=== PATIENT | female | born 1940 | race Caucasian/White ===

== ENCOUNTER 2020-04-26 11:30 | Emergency (ER) | payer MEDICARE, OTHER, SELFPAY ==
--- NOTE | ~2020-04-26 | XR_ITS ---
XR chest 2V DATE: 04/26/2020 12:34 INDICATION: Shortness of breath. Weakness. History of heart surgery. TECHNIQUE: PA and lateral views COMPARISON: 09/19/2017 PA and lateral chest FINDINGS: Status post sternotomy and coronary bypass graft surgery. Heart size is within normal range . Is aortic calcification. No hilar or mediastinal enlargement. There is a new approximately 10 mm opacity overlying the right lower lung; CT thorax is recommended f or further evaluation. The lungs are moderately hyperinflated. There is evidence of old pulmonary gra nulomatous disease. No pulmonary infiltrate or consolidation, pleural effusion or pulmonary vascular congestion or pneumothorax is detected. Diffuse osteopenia. IMPRESSION: New approximately 1 cm opacity overlying right lower lung; CT thorax is recommended Bilateral hyperinflation suggesting COPD Reviewed, dictated and finalized at location B. IMPRESSION: New approximately 1 cm opacity overlying right lower lung; CT thora x is recommended Bilateral hyperinflation suggesting COPD
[2020-04-26 11:39] VITALS: BP 203/83; PULSE 79; RESP 27; TEMP 36.8; O2SAT 100
[2020-04-26 11:46] VITALS: BP 125/98; PULSE 71; PULSE 73; RESP 16; TEMP 36.8; O2SAT 100
--- NOTE | 2020-04-26 11:47 | ECG_ITS ---
Measurements Intervals [place] Rate: 80 P: 95 [place]: 141 QRS: 50 QRSD: 100 T: 76 QT: 407 QTc: 470 Interpretive Statements SINUS RHYTHM BORDERLINE ST-T WAVE ABNORMALITY- INF/HIGH LAT LEADS BASELINE ARTIFACT- I, II, III, AVR, AVL, AVF, V2-V6 BORDERLINE ECG Electronically Signed On 04-26-2020 17:15:12 CDT by Raymond Cloud D.O.
[2020-04-26 11:59] LABS: Basophils Absolute Auto 0.2 K/mm3 (0.0-0.1); Basophils Percent Auto 1.3 % (0.2-1.2); Eosinophils Absolute Auto 0.3 K/mm3 (0-0.3); Eosinophils Percent Auto 2.7 % (0-4.4); Hematocrit 37.9 % (37.0-47.0); Hemoglobin 12.5 g/dL (12.0-15.0); Immature Granulocyte Absolute 0.05 K/mm3 (0.00-0.031); Immature Granulocyte Percent A 0.4 % (0-0.5); Lymphocytes Absolute Auto 2.09 K/mm3 (0.9-3.2); Lymphocytes Percent Auto 18.6 % (18.3-44.2); Mean Corpuscular Hemoglobin 30.4 pg (26-34); Mean Corpuscular Volume 92.2 fl (80-100); Mean Platelet Volume 9.9 fl (7.4-10.4); Monocytes Absolute Auto 0.7 K/mm3 (0.1-0.6); Monocytes Percent Auto 6.6 % (2.6-8.5); Neutrophils Absolute Auto 7.9 K/mm3 (1.3-6.7); Neutrophils Percent Auto 70.4 % (45.5-73.1); Platelet Count Result 227 k/mm3 (150-375); Red Blood Count 4.11 M/mm3 (4.2-5.4); Red Cell Distribution Width 14.1 % (11.5-14.5); White Blood Count 11.2 K/mm3 (4.5-10.0)
[2020-04-26 12:27] LABS: Anion Gap 13.8 mmol/L (7-16); Blood Urea Nitrogen 20 mg/dL (7-17); Calcium 8.9 mg/dL (8.4-10.2); Carbon Dioxide 27 mmol/L (22-30); Chloride 101 mmol/L (98-107); Estimated CRCL calculation 31 ml/min; Estimated Glomerular Filt Rate 60; Glucose 124 mg/dL (65-105); Potassium 3.8 mmol/L (3.4-5.0); Sodium 138 mmol/L (137-145)
[2020-04-26 12:28] VITALS: BP 166/64; PULSE 60; RESP 23; O2SAT 100
[2020-04-26 12:57] VITALS: BP 157/61; PULSE 66; RESP 19; O2SAT 100
--- NOTE | 2020-04-26 12:58 | PC.NURSE ---
tech assisted pt to restroom.
[2020-04-26 14:30] LABS: Add Urine Microscopic? NO; Appearance Urine Clear (Clear); Bacteria Urine 3+ /hpf; Bilirubin Urine Negative (Negative); Blood Urine Negative (Negative); Color Urine Colorless (Yellow); Glucose Urine UA Negative (Negative); Ketones Urine Negative (Negative); Leukocyte Esterase Ur Negative LEU/UL (Negative); Nitrate Urine Negative (Negative); Protein Urine Negative (Negative); Specific Grav Ur 1.005 (1.001-1.035); Transitional Epi Cells Urine Rare /hpf (None Seen); Urobilinogen Urine Negative mg/dL (<2.0); WBC Urine 0-3 /hpf
[2020-04-26 14:40] LABS: D Dimer 1.98 ug/mL (<0.48)
[2020-04-26 14:43] LABS: Troponin I < 0.012 ng/mL (0.000-0.034)
--- NOTE | 2020-04-26 15:34 | ED.SOB ---
HPI - SOB/Dyspnea General Chief Complaint: Shortness of Breath/Dyspnea Stated Complaint: WEAK, SOB Time Seen by Provider: 04/26/20 12:08 Source: patient and family () Mode of arrival: ambulatory Limitations: no limitations History of Present Illness HPI Narrative: Patient presents for evaluation after having an episode while she was sitting watching TV when she became sweaty felt short of breath and like she was going to pass out. Patient states that she did not become dizzy or have a headache. Patient states she did not have any visual changes, nausea or vomiting. Patient denies ever having chest pain during this event. Patient has a history double bypass as well as 2 heart attacks. Related Data Home Medications Medication Instructions Recorded Confirmed aspirin 81 mg tablet,delayed 81 mg PO DAILY 08/15/19 release metoprolol succinate 25 mg 25 mg PO DAILY 08/15/19 tablet,extended release 24 hr omeprazole 20 mg capsule,delayed 20 mg PO DAILY 08/15/19 release simvastatin 10 mg tablet 10 mg PO DAILY 08/15/19 Allergies Allergy/AdvReac Type Severity Reaction Status Date / Time iodine Allergy Unknown Vomiting Verified 04/26/20 11:45 shellfish derived Allergy Unknown Nausea and Verified 04/26/20 11:45 Vomiting shrimp Allergy Unknown Nausea and Verified 04/26/20 11:45 Vomiting Shrimp Allergy Mild NAUSEA AND Uncoded 04/26/20 11:45 VOMITING Review of Systems Review of Systems: Narrative: CONSTITUTIONAL: Reports resolved sweat episode Denies fever, chills, or present sweats. EYES: Denies visual changes, redness, or discharge. ENT: Denies rhinorrhea, congestion, sore throat, or otalgia. CARDIOVASCULAR: Denies chest pain, palpitations, or edema. RESPIRATORY:Reports resolved episode of SOB Denies cough or dyspnea. GASTROINTESTINAL: Denies abdominal pain, nausea, vomiting, or diarrhea. GENITOURINARY: Denies dysuria or hematuria. SKIN: Denies rash or itching. MUSCULOSKELETAL: Denies back pain, joint pain, or myalgia. NEUROLOGIC: Denies headache, numbness, dizziness, or weakness. PSYCHIATRIC: Denies anxiety or depression. [facility] Family History Family History (Updated 03/21/19 @ 10:46 by DOCTOR UNKNOWN) Sibling Family history of lung cancer Patient's brother is Family history of malignant neoplasm Father Family history of coronary artery disease Patient's father is , Onset Age: 70 Family history of heart disease in male family member before age 55 Mother Family history of coronary artery disease Patient's mother is , Onset Age: 70 Social History Social History Smoking status: Never smoker Second hand tobacco smoke exposure: No Smoking end date: 09/24/17 Alcohol intake: never Gender identity (if verbalized by the patient): Female Sexual Orientation (if Verbalized by the Patient): Straight or Heterosexual Exam Narrative: Exam Narrative: GENERAL: Well-appearing, well-nourished, and in no acute distress. HEAD: Normocephalic, atraumatic. EYES: PERRLA and EOMI. ENT: Nares clear, no rhinorrhea or epistaxis. Mucous membranes moist. Oropharynx without tonsillar hypertrophy exudate or other lesions. Bilateral TMs pearly jung nonbulging NECK: Supple. No adenopathy or masses. No carotid bruits or JVD CHEST: Clear to auscultation. No respiratory distress. No wheezes rales or rhonchi. No tachypnea. HEART: Regular rate and rhythm. Healed vertical surgical scar. No tenderness with palpation. ABDOMEN: Soft, nontender, nondistended, normal active bowel sounds. EXTREMITIES: Normal range of motion. No edema. SKIN: Warm, dry, no rash. NEURO: No focal deficits. Alert and oriented x3. PSYCH: Normal mood and affect. Course Vital Signs Vital signs: Vital Signs Temperature 98.3 F 04/26/20 11:39 Pulse Rate 79 04/26/20 11:39 Respiratory Rate 27 H 04/26/20 11:39 Blood Pressure 203/83 H 04/26/20 11:39 Pulse Oximetry 100
--- NOTE | 2020-04-26 15:35 | PC.NURSE ---
ERP at bedside to update pt. Pt is currently refusing admission and any further scans. requesting rescue inhaler.
[2020-04-26 15:36] VITALS: BP 162/69; PULSE 59; RESP 25; O2SAT 99
[2020-04-26 16:27] VITALS: BP 197/80; PULSE 72; RESP 19; TEMP 36.7; O2SAT 97
[2020-04-27 15:08] LABS: SARS-CoV-2 RNA PCR Negative
== END 2020-04-26 16:29 | disposition home or self-care (01) ==
PROVIDERS: Emergency Medicine; Physician Assistant; Emergency Provider Emergency Medicine
DX: J44.1 Chronic obstructive pulmonary disease with (acute) exacerbation (principal); Z20.828 Contact with and (suspected) exposure to other viral communicable diseases
CPT/HCPCS: 36415; 71046; 80048; 81003; 84484; 85025; 85380; 87635; 93005; 99284; C9803; U0003

== ENCOUNTER 2021-03-02 10:32 | Outpatient (CLI) | payer MEDICARE, SELFPAY ==
[2021-03-02 11:04] LABS: Alanine Aminotransferase 11 U/L (4-35); Albumin Level 4.2 g/dL (3.5-5.1); Alkaline Phosphatase 75 U/L (38-126); Anion Gap 9 mmol/L (8-16); Aspartate Amino Transferase 21 U/L (14-36); Bilirubin,Total 0.7 mg/dL (0.2-1.3); Blood Urea Nitrogen 17 mg/dL (7-17); Calcium 9.6 mg/dL (8.4-10.2); Carbon Dioxide 30 mmol/L (22-30); Chloride 104 mmol/L (98-107); Cholesterol 164 mg/dL (0-200); Estimated Glomerular Filt Rate 53; Glucose 98 mg/dL (65-105); HDL Direct 67 mg/dL; Potassium 4.6 mmol/L (3.4-5.0); Sodium 143 mmol/L (137-145); Triglycerides 86 mg/dL (<150)
[2021-03-02 11:15] LABS: LDL Cholesterol Direct 59 mg/dL
[2021-03-02 12:09] LABS: Folic Acid 13.6 ng/mL (2.76->20)
== END 2021-03-02 10:33 | disposition home or self-care (01) ==
PROVIDERS: PCP Physician Assistant; Visit Provider Physician Assistant
DX: E78.5 Hyperlipidemia, unspecified (principal); I10 Essential (primary) hypertension
CPT/HCPCS: 36415; 80053; 80061; 82607; 82746; 84443

== ENCOUNTER 2021-03-11 10:08 | Outpatient (CLI) | payer MEDICARE, SELFPAY ==
--- NOTE | 2021-03-14 12:30 | WPDPFTINT ---
PFT Procedure Performed PFT Procedure Performed Plethysmography (Lung Vol) Diffusing Cap (DLCO) Flow Vol Loop Spirometry w/o Bronchodil PFT Interpretation DOS: 03/11/2021 REQUESTING: Dr Coreas REASON FOR TESTING: shortness of breath PULMONARY FUNCTION TESTS Results are reproducible and reliable. Spirometry: FEV1 is 48% severely decreased. This is 0.87 L. FVC is mildly reduced 71%. FEV1/ FVC ratio is decreased 51% consistent with airflow obstruction. No bronchodilator was given. Lung volumes: Total lung capacity is 112% upper limits of normal. Slow vital capacity is 75% much higher than the forced vital capacity 48%. This is consistent with dynamic air trapping. Residual volume is increased 156% this is a moderate increased. RV/TLC is increased 67% Consistent with air trapping. Diffusion: DLCO Severely decreased 33%. Flow volume loop: Mild scooping of the expiratory limb consistent with airflow obstruction. IMPRESSION: Severe obstructive ventilatory impairment with moderate air trapping, severe diffusion impairment and increased airways resistance. No bronchodilator was given. This pulmonary function study suggests emphysema. Norah Abarca MD
== END 2021-03-11 10:09 | disposition home or self-care (01) ==
PROVIDERS: PCP Physician Assistant; Visit Provider Internal Medicine Cardiovascular Disease
DX: R06.00 Dyspnea, unspecified (principal); R94.2 Abnormal results of pulmonary function studies; Z72.0 Tobacco use
CPT/HCPCS: 94375; 94726; 94729

== ENCOUNTER 2021-07-27 07:39 | Outpatient (CLI) | payer MEDICARE, SELFPAY ==
--- NOTE | 2021-07-27 14:44 | WPDSIXMINUTE ---
Six Minute Walk Procedure Procedure Performed Pulmonary Stress Test (6 min walk) Six Minute Walk This 6 minutes walk test was carried out with the patient breathing ambient air. The pre-walk oxyhemoglobin saturation was 98% and the perceived dyspnea 2 on the Ursula scale. The patient was able to walk 335 m with no stops during testing. During the walk, the oxyhemoglobin saturation remained over 97%. The perceived post-test dyspnea was 3 on the Ursula scale. Impression: No evidence of oxyhemoglobin saturation desaturation on this testing.
== END 2021-07-27 07:40 | disposition home or self-care (01) ==
LOC: ANHPFT 07:40
PROVIDERS: Visit Provider Internal Medicine Pulmonary Disease
DX: J44.9 Chronic obstructive pulmonary disease, unspecified (principal)
CPT/HCPCS: 94618

== ENCOUNTER 2021-07-27 07:42 | Outpatient (CLI) | payer MEDICARE, SELFPAY ==
--- NOTE | ~2021-07-27 | CT_ITS ---
EXAMINATION: CT lung screening EXAM DATE: 07/27/2021 08:25 INDICATION: Z87.891 - Personal history of nicotine dependence. Shortness of breath. TECHNIQUE: Spiral low dose CT of the chest without contrast. Axial, coronal and sagittal images were reviewed. The dose-length product (DLP) for this examination was 58.87 mGy-cm. The exposure was ta ilored according to patient size (auto mA exposure control), and iterative reconstruction (ASIR) was used as additional dose reduction technique. There is no prior study for comparison. FINDINGS: Spiculated right lower lobe nodule measuring 1.5 cm, appearance is highly suggestive of [place] lung cancer. There is moderate emphysema. There are scattered calcified lung granulomata. Trach eobronchial tree is patent. There is no mediastinal, hilar or axillary lymphadenopathy. There are no pleural or pericardial effusions. There is no pneumothorax. Heart normal in size. There are sternotomy wires, and cardiac/coronary surgical changes. Correlate with prior history. Upper abdomen is unremarkable. There is thoracic spondylosis without osteoblastic or osteolytic lesions identifi ed. IMPRESSION: Lung-RADS category 4X; CT-guided biopsy of probable right lower lobe primary bronchogenic lung cancer recommended. I discussed suspected lung cancer with Irene in the office of the ordering clinician Artie soriano MD at 07/27/2021 11:29 CDT, stated she would notify the clinicians present today. Reviewed, dictated and finalized at location A. IMPRESSION: Lung-RADS category 4X; CT-guided biopsy of probable right lower lob e primary bronchogenic lung cancer recommended. I discussed suspected lung cancer with Irene in the office of the ordering clin teddy Coelho MD at 07/27/2021 11:29 CDT, stated she would notify the clinicians present today.
== END 2021-07-27 07:43 | disposition home or self-care (01) ==
LOC: ANHIMG 07:43
PROVIDERS: Visit Provider Internal Medicine Pulmonary Disease
DX: Z12.2 Encounter for screening for malignant neoplasm of respiratory organs (principal); Z87.891 Personal history of nicotine dependence
CPT/HCPCS: 71271; 94618

== ENCOUNTER 2021-08-10 05:43 | Outpatient (CLI) | payer MEDICARE, SELFPAY ==
[2021-08-03 10:43] VITALS: BMI 17.7
--- NOTE | 2021-08-03 10:54 | PC.NURSE ---
Addendum entered by Ghislaine Mckinney RN 08/03/21 10:57: PT TO ARRIVE @ [address] [place] [address] 08/10/21 - PT CONTACTED AND UNDERSTANDING VOICED. Original Note: Report to [facility], at time _0900_ on date 08/10/21__. OR Time: __1100__. - You and your visitor will be asked a series of questions to screen for COVID 19 for your protection. - A mask is required within the hospital. - Only one visitor is allowed at this time. Patient visitors will be guided where to wait when not with patient. Preoperative COVID Testing Requirements: No COVID Test needed if: (proof is required; if not received patient will have Rapid Test prior to entry) - Patient has received COVID Vaccine at least 14 days prior to procedure date or - Patient has positive COVID test result within last 90 days of surgery date. COVID Test needed if above criteria is not met If not COVID vaccinated a COVID test must be conducted within 72 hours of surgery and patient is asked to isolate self from time of testing until procedure. You will go to the [facility] for your COVID testing. The [facility] site is located at the corner of [address] [facility]. You will only be called if COVID results are positive and your surgeon may reschedule your elective surgery date. - No food from 0500 - Infants may have breast milk until 4 hours before surgery, formula 6 hours prior to surgery. - Children will be allowed to drink immediately following surgery. If applicable, please bring a bottle or sippy cup to assist with drinking. Juice, water, soda, and popsicles are readily available. For infants on formula, please bring formula the day of surgery. Pacifiers are allowed. Take the following medications with a SIP of water the morning of surgery: _INHALER, METOPROLOL Medications to discontinue per physician __ASA - PT STATES STOPPING 08/02/21 Date to take last dose Please no make-up, nail arabic, hairspray, perfume, deodorant, or body powder the day of surgery. No jewelry (including any body piercings) or valuables the day of surgery, leave them at home. Please take a shower or bath the night before, or the morning of, surgery with an antibacterial soap. Wear comfortable, loose fitting clothing. Children are encouraged to wear pajamas. - Jewelry must be removed prior to entering the operating room. Rings and piercings that are not removed may be cut off. - The hospital will not accept responsibility for valuables. - Please leave all valuables, including medications, at home the day of surgery. If you are going home after surgery, a licensed bulk delivery driver must drive you home. - NO public transportation without another adult. - We recommend that an adult stay with you for 24 hours following discharge. - We also recommend that you do not drive, make important decision, drink alcoholic beverages, or take any drugs that were not prescribed by your health care provider for at least 24 hours after your discharge time. For Pediatric surgeries, we recommend two adults accompany the child home (only one inside the building at this time). Follow any additional instructions given to you from your surgeon. Telephone instructions given to ____PT____and asked if any additional questions and then verbalized understanding. Patient advised to call surgeon office or pre surgery nurse liaison [phone] if any additional questions.
--- NOTE | 2021-08-09 15:00 | SUR.PREOP ---
patient called and reminded of arrival time of 10am at [facility] entrance, understanding stated.
[2021-08-10] VITALS (17 sets, daily range): BP systolic 149–189; BP diastolic 56–101; PULSE 60–81; RESP 14–18; TEMP 36.7; O2SAT 94–100
--- NOTE | ~2021-08-10 | XR_ITS ---
EXAMINATION: XR chest 1V portable DATE: 08/10/2021 13:38 INDICATION: Right lung nodule status post percutaneous biopsy. TECHNIQUE: A single frontal view of the chest was obtained. COMPARISON: Chest single view at 12:30 PM FINDINGS: Calcified pulmonary nodules and calcified hilar and mediastinal lymph nodes are consistent with old granulomatous disease. There are airspace opacities in right lower lung zone. There is a sma ll right pneumothorax. No pleural effusion. The heart size is normal. Median sternotomy wires and med iastinal surgical clips are seen, likely from prior coronary artery bypass grafting. There is a closu re device of left atrial appendage. IMPRESSION: 1. Stable small right pneumothorax. 2. Stable airspace opacities in right lower lung zone, consistent with postbiopsy hemorrhage. Reviewed, dictated and finalized at location A. LEAD ARCHITECT IMPRESSION: 1. Stable small right pneumothorax. 2. Stable airspace opacities in right lower lung zone, consistent with postbiop sy hemorrhage.
--- NOTE | ~2021-08-10 | XR_ITS ---
EXAMINATION: XR chest 1V DATE: 08/10/2021 12:35 INDICATION: Right lung nodule status post percutaneous biopsy. TECHNIQUE: A single frontal view of the chest was obtained. COMPARISON: Chest 2 views 04/26/2020 FINDINGS: Calcified pulmonary nodules and calcified hilar and mediastinal lymph nodes are consistent with old granulomatous disease. There are airspace opacities in right lower lung zone. There is a sma ll right pneumothorax. No pleural effusion. The heart size is normal. Median sternotomy wires and med iastinal surgical clips are seen, likely from prior coronary artery bypass grafting. There is a closu re device at left atrial appendage. IMPRESSION: 1. Airspace opacities in right lower lung zone, consistent with postbiopsy hemorrhage. 2. New small right pneumothorax. The patient denies shortness of breath or chest pain. Reviewed, dictated and finalized at location A. H SPECIALIST IMPRESSION: 1. Airspace opacities in right lower lung zone, consistent with postbiopsy hemo rrhage. 2. New small right pneumothorax. The patient denies shortness of breath or ches t pain.
--- NOTE | ~2021-08-10 | XR_ITS ---
EXAMINATION: XR chest 1V portable DATE: 08/10/2021 15:35 INDICATION: Right lung nodule status post percutaneous biopsy. TECHNIQUE: A single frontal view of the chest was obtained on 2 radiographs. COMPARISON: Chest single view at 1:30 PM FINDINGS: There is a small right pneumothorax. There are airspace opacities in right lower lung zone. Calcified pulmonary nodules and calcified hilar and mediastinal lymph nodes are consistent with old granulomatous disease. No pleural effusion. The heart size is normal. Median sternotomy wires and med iastinal surgical clips are seen, likely from prior coronary artery bypass grafting. There is a closu re device of left atrial appendage. IMPRESSION: 1. Stable small right pneumothorax. 2. Stable airspace opacities in right lower lung zone, consistent with postbiopsy hemorrhage. Reviewed, dictated and finalized at location A. DENTIAL INSTRUCTOR IMPRESSION: 1. Stable small right pneumothorax. 2. Stable airspace opacities in right lower lung zone, consistent with postbiop sy hemorrhage.
--- NOTE | ~2021-08-10 | XR_ITS ---
EXAMINATION: XR chest 1V portable DATE: 08/10/2021 16:28 INDICATION: Right chest pain. TECHNIQUE: A single frontal view of the chest was obtained. COMPARISON: Chest single view at 3:29 PM FINDINGS: Calcified pulmonary nodules and calcified hilar and mediastinal lymph nodes are consistent with old granulomatous disease. There is a small right pneumothorax. There are airspace opacities in right lower lung zone. No pleural effusion. The heart size is normal. Median sternotomy wires and med iastinal surgical clips are seen, likely from prior coronary artery bypass grafting. There is a closu re device of left atrial appendage. IMPRESSION: 1. Stable small right pneumothorax. 2. Stable airspace opacities in right lower lung zone, consistent with postbiopsy hemorrhage. Reviewed, dictated and finalized at location A. PHYSICIST IMPRESSION: 1. Stable small right pneumothorax. 2. Stable airspace opacities in right lower lung zone, consistent with postbiop sy hemorrhage.
--- NOTE | ~2021-08-10 | CT_ITS ---
EXAMINATION: CT biopsy lung w/imaging DATE: 08/10/2021 12:46 INDICATION: Right lung lower lobe nodule. TECHNIQUE: The procedure including the risks, benefits, and alternatives and possibility of chest tub e placement were discussed with the patient. Risks discussed included infection, approximately 1/20 r isk of symptomatic hemorrhage beyond mild hemoptysis, approximately 1/3 risk of pneumothorax, approxi mately 1/10 risk of pneumothorax severe enough to warrant chest tube placement, and rarely . The patient understood the risks and agreed to proceed. The patient was placed left lateral decubitus. The skin overlying the right lung was prepped and draped in sterile fashion. Anesthetic was administ ered with 1% lidocaine subcutaneously. A 19 gauge outer needle was advanced under CT guidance to the lesion of interest. A 20 gauge core biopsy needle was then used to obtain 2 core biopsy specimens. T he needle was removed and the entry site was cleaned and dressed. Automated exposure control and iter ative reconstruction technique were employed. The dose-length product was 306.00 mGy-cm. FINDINGS: CT images demonstrate the outer needle tip adjacent to a 15 mm nodule in right lung lower l obe. Postbiopsy images demonstrate intraparenchymal hemorrhage in right lower lobe and a small right pneumothorax. IMPRESSION: 1. CT-guided core needle biopsy of a 15 mm nodule in right lung lower lobe. 2. Small volume of postbiopsy hemorrhage in right lower lobe and small postbiopsy pneumothorax. Reviewed, dictated and finalized at location A. TRICAL AGENT IMPRESSION: 1. CT-guided core needle biopsy of a 15 mm nodule in right lung lower lobe. 2. Small volume of postbiopsy hemorrhage in right lower lobe and small postbiop sy pneumothorax.
[2021-08-10 10:23] LABS: Mean Platelet Volume 9.9 fl (7.4-10.4); Platelet Count Result 225 k/mm3 (150-375)
[2021-08-10 11:33] LABS: Prothrombin Time 13.2 Seconds (11.1-14.7)
--- NOTE | 2021-08-10 13:08 | SUR.PHASEII ---
pt is on her right lateral side on her surgical puncture per order. pt is Bedrest for 4 hrs. pt was informed.
--- NOTE | 2021-08-10 13:24 | SUR.PHASEII ---
MD arenas came by to see pt. pt VSS. breathing even and unlabored.
--- NOTE | 2021-08-10 13:27 | SUR.PHASEII ---
pt is at bedside. upon pt arrival to outpt
--- NOTE | 2021-08-10 13:30 | SUR.PHASEII ---
per Dr Santiago use bed scott for pt to void on.
--- NOTE | 2021-08-10 13:44 | SUR.PHASEII ---
XR tech came wt bedside for portable CXR
--- NOTE | 2021-08-10 13:46 | SUR.PHASEII ---
this nurse called and informed md Arenas that pt had her CXR. dr arenas said pt pneumothorax was unchanged we can start tapering pt O2 down.
--- NOTE | 2021-08-10 14:51 | SUR.PHASEII ---
pt is c/o a head ache. pt said she gets them when she doesn't eat. per md Santiago pt can have some water but no food at this time.
--- NOTE | 2021-08-10 15:03 | SUR.PHASEII ---
there is a delay for giving pt tylenol due to pt name not coming up in the pyxus. this nurse is asking pt manager placement ottoniel and other nurses for assistance.
[2021-08-10] MEDS: ACETAMINOPHEN 500 MG TABLET PO (15:07)
--- NOTE | 2021-08-10 15:34 | SUR.PHASEII ---
XR tech came to bedside to do pt 3 hr CXR. pt c/o pain at surgical site with movement pain 01/01. vss. biopsy site has no hematoma and is soft.
--- NOTE | 2021-08-10 15:39 | SUR.PHASEII ---
Dr arenas was informed that pt had her XR and he said that her XR was unchanged and her VS are stable, breathing is even and unlabored and that she is ok to go home.
--- NOTE | 2021-08-10 16:20 | SUR.PHASEII ---
rn cat helped pt ambulate to and back from the bathroom and pt said she started having increased pain at biopsy site. this nurse called dr arenas and he said he wanted to get another CXR.
--- NOTE | 2021-08-10 16:25 | SUR.PHASEII ---
XR tech is at bedside
--- NOTE | 2021-08-10 17:27 | SUR.PHASEII ---
at 1630 md arenas came to see pt and informed pt that her repeat cxr was unchanged and to come to the ER if she has worse SOB or CP
== END 2021-08-10 16:50 | disposition home or self-care (01) ==
PROVIDERS: Radiology Diagnostic Radiology; Visit Provider Internal Medicine Pulmonary Disease
PROC: BB24ZZZ Computerized Tomography (CT Scan) of Bilateral Lungs (ICD-10-PCS; CPT 32408; principal; 2021-08-10 11:00)
DX: R91.1 Solitary pulmonary nodule (principal); J95.811 Postprocedural pneumothorax
CPT/HCPCS: 32408; 36415; 71045; 81210; 81235; 81275; 81276; 85049; 85610; 88271; 88274; 88305; 88342; 88360; 88381; A9270

== ENCOUNTER 2021-08-25 13:37 | Outpatient (CLI) | payer MEDICARE, SELFPAY ==
--- NOTE | ~2021-08-25 | PE_ITS ---
EXAMINATION: PET skull to mid thigh DATE: 08/25/2021 15:14 INDICATION: Non-small cell lung cancer. TECHNIQUE: Blood glucose level was 84 mg/dL. 10.348 mCi of 18-fluorodeoxyglucose (18-FDG) was adminis tered i.v. Low dose computed tomography (CT) images were acquired from the base of the brain to the p roximal thighs for attenuation correction and anatomic localization. Automated exposure control was e mployed. Dose-length product (DLP) was 220 mGy-cm. Positron emission tomography (PET) images were acq uired in the same distribution. COMPARISON: Chest CT 07/27/2021 FINDINGS: Head/neck: There are no pathologically enlarged lymph nodes. There is increased activity in the oroph arynx without abnormal CT correlate, likely physiologic. Chest: There is mild scarring at the lung apices. Calcified bilateral lung nodules and calcified finesse r and mediastinal lymph nodes are consistent with old granulomatous disease. There is moderate emphys sybil. There is a 16 mm nodule in right lung lower lobe with maximum SUV of 7.1. No pleural effusion. C ardiomegaly is noted. There are coronary artery calcifications. There are changes of coronary artery bypass grafting. No pericardial effusion. Abdomen/pelvis/proximal thighs: Calcifications in the liver consistent with old granulomatous disease . The gallbladder, spleen, pancreas, and adrenal glands are normal. Small calcifications at the finesse of the kidneys may be kidney stones or vascular calcifications. There are bilateral inguinal hernias containing fat. There are no pathologically enlarged lymph nodes. There is no free intraperitoneal fl uid. There is a right hip arthroplasty. IMPRESSION: 1. 16 mm nodule in right lung lower lobe with increased activity, consistent with non-small cell carc inoma. No evidence of metastatic disease. Reviewed, dictated and finalized at location A. SETTER HAND IMPRESSION: 1. 16 mm nodule in right lung lower lobe with increased activity, consistent wi th non-small cell carcinoma. No evidence of metastatic disease.
[2021-08-25 13:51] LABS: Glucose Point of Care 84 mg/dl (65-105)
== END 2021-08-25 13:38 | disposition home or self-care (01) ==
LOC: ANHIMG 13:38
PROVIDERS: Visit Provider Internal Medicine Pulmonary Disease
DX: R91.1 Solitary pulmonary nodule (principal)
CPT/HCPCS: 78815; A9552

== ENCOUNTER 2021-08-31 11:54 | Outpatient (CLI) | payer MEDICARE, SELFPAY ==
--- NOTE | ~2021-08-31 | XR_ITS ---
EXAMINATION: XR hip RT min 3V w AP pelvis INDICATION: Right hip pain TECHNIQUE: AP view the pelvis and three views of the right hip are obtained. COMPARISON: None available FINDINGS: There are changes of right hip hemiarthroplasty. No fracture is identified. Calcified ather osclerosis is noted. There are phleboliths in the pelvis. IMPRESSION: 1. No acute osseous abnormality. Reviewed, dictated and finalized at location A. NG RUNNING MACHINE TENDER
== END 2021-08-31 11:55 | disposition home or self-care (01) ==
LOC: ANHIMG 12:03
PROVIDERS: PCP Physician Assistant; Visit Provider Physician Assistant
DX: M25.559 Pain in unspecified hip (principal)
CPT/HCPCS: 73502

== ENCOUNTER 2021-09-26 10:22 | Emergency (ER) | payer MEDICARE, SELFPAY ==
[2021-09-26 11:11] VITALS: BP 157/111; PULSE 78; RESP 20; TEMP 36.8; O2SAT 100
== END 2021-09-27 03:55 | disposition left against medical advice (07) ==
PROVIDERS: PCP Physician Assistant
DX: R11.0 Nausea (principal)
CPT/HCPCS: 99199

== ENCOUNTER 2021-12-21 13:51 | Outpatient (CLI) | payer MEDICARE, SELFPAY ==
--- NOTE | ~2021-12-21 | CT_ITS ---
EXAMINATION:CT diagnostic chest wo con DATE: 12/21/2021 14:08 INDICATION: Malignant neoplasm of right lung lower lobe. TECHNIQUE: Computed tomography (CT) of the chest was performed without intravenous contrast. Automate d exposure control and iterative reconstruction technique were employed. The dose-length product (DLP ) was 127.09 mGy-cm. COMPARISON: Chest CT 08/10/2021, 07/27/2021, PET CT 08/25/2021 FINDINGS: There is mild scarring at the lung apex. There is moderate emphysema. Calcified pulmonary n odules and calcified hilar and mediastinal lymph nodes are consistent with old granulomatous disease. There is a 13 mm nodule in right lower lobe. There are small bilateral posterior diaphragmatic herni as containing fat. There is a stable 4 mm nodule in left lower lobe. No pleural effusion. Cardiomegal y is noted. There are coronary artery calcifications. There are changes of coronary artery bypass gra fting. No pericardial effusion. Partially visualized is a 3.0 cm fusiform aneurysm of abdominal aorta . There is mild thoracic spondylosis. IMPRESSION: 1. 13 mm nodule in right lung lower lobe, which measured 15 mm on 08/10/2021, consistent with non-sma ll cell lung cancer. 2. Moderate emphysema. Reviewed, dictated and finalized at location A. IMPRESSION: 1. 13 mm nodule in right lung lower lobe, which measured 15 mm on 08/10/2021, c onsistent with non-small cell lung cancer. 2. Moderate emphysema.
== END 2021-12-21 13:52 | disposition home or self-care (01) ==
LOC: ANHIMG 13:53
PROVIDERS: PCP Physician Assistant; Visit Provider Radiology Radiation Oncology
DX: C34.31 Malignant neoplasm of lower lobe, right bronchus or lung (principal); J43.9 Emphysema, unspecified
CPT/HCPCS: 71250

== ENCOUNTER 2022-03-24 09:51 | Outpatient (CLI) | payer MEDICARE, SELFPAY ==
--- NOTE | ~2022-03-24 | CT_ITS ---
EXAMINATION: CT diagnostic chest wo con DATE: 03/24/2022 10:07 INDICATION: Malignant neoplasm of the right lower lobe TECHNIQUE: Computed tomography (CT) of the chest was performed without intravenous contrast. The dose -length product (DLP) was 128.20 mGy-cm. Automated exposure control and iterative reconstruction tech [employer] were employed. COMPARISON: 12/21/2021 FINDINGS: There is moderate emphysema. There is an 8 mm nodule of the right upper lobe which previous ly measured 5 mm. A 5 mm nodule in the left lower lobe previously measured 4 mm. A 13 mm nodule of th e right lower lobe is stable. There is mild atelectasis. No pleural effusion or pneumothorax. Cardiom egaly is noted. There are changes of coronary artery bypass grafting. No pathologically enlarged thor acic lymph nodes are identified. There is mild thoracic spondylosis. IMPRESSION: 1. Nodules in the lower lobes and right upper lobe as described above, consistent with primary bronch ogenic carcinoma. Reviewed, dictated and finalized at location F. IMPRESSION: 1. Nodules in the lower lobes and right upper lobe as described above, consiste nt with primary bronchogenic carcinoma.
== END 2022-03-24 09:52 | disposition home or self-care (01) ==
LOC: ANHIMG 09:53
PROVIDERS: PCP Family Medicine; Visit Provider Internal Medicine Hematology & Oncology
DX: C34.31 Malignant neoplasm of lower lobe, right bronchus or lung (principal)
CPT/HCPCS: 71250

== ENCOUNTER 2022-03-30 10:49 | Outpatient (CLI) | payer MEDICARE, SELFPAY ==
[2022-03-30 11:16] LABS: Basophils Absolute Auto 0.1 K/mm3 (0.0-0.1); Basophils Percent Auto 1.8 % (0.2-1.2); Eosinophils Absolute Auto 0.3 K/mm3 (0-0.3); Eosinophils Percent Auto 3.9 % (0-4.4); Hematocrit 37.6 % (37.0-47.0); Immature Granulocyte Absolute 0.03 K/mm3 (0.00-0.031); Immature Granulocyte Percent A 0.4 % (0-0.5); Lymphocytes Percent Auto 25.4 % (18.3-44.2); Mean Corpuscular HGB Conc 31.9 g/dl (32-36); Mean Corpuscular Hemoglobin 30.2 pg (26-34); Mean Corpuscular Volume 94.5 fl (80-100); Mean Platelet Volume 9.5 fl (7.4-10.4); Monocytes Absolute Auto 0.6 K/mm3 (0.1-0.6); Monocytes Percent Auto 8.4 % (2.6-8.5); Neutrophils Percent Auto 60.1 % (45.5-73.1); Platelet Count Result 219 k/mm3 (150-375); Red Blood Count 3.98 M/mm3 (4.2-5.4); Red Cell Distribution Width 13.3 % (11.5-14.5); White Blood Count 6.7 K/mm3 (4.5-10.0)
[2022-03-30 11:21] LABS: Blood Urea Nitrogen 23 mg/dL (8-26); Carbon Dioxide 25 mmol/L (22-30); Chloride 104 mmol/L (98-109); Estimated Glomerular Filt Rate 60; Glucose 90 mg/dL (70-105); Ionized Calcium (POC) 1.16 mmol/L (1.11-1.31); Potassium 4.4 mmol/L (3.5-4.9); Sodium 139 mmol/L (138-146)
[2022-03-30 12:14] LABS: Alanine Aminotransferase 10 U/L (6-35); Albumin Level 4.2 g/dL (3.5-5.1); Alkaline Phosphatase 85 U/L (38-126); Anion Gap 8 mmol/L (8-16); Aspartate Amino Transferase 19 U/L (14-36); Bilirubin,Total 0.2 mg/dL (0.2-1.3); Blood Urea Nitrogen 23 mg/dL (7-17); Calcium 8.6 mg/dL (8.4-10.2); Carbon Dioxide 25 mmol/L (22-30); Chloride 105 mmol/L (98-107); Estimated Glomerular Filt Rate 60; Glucose 91 mg/dL (65-110); Potassium 4.5 mmol/L (3.4-5.0); Sodium 138 mmol/L (137-145)
== END 2022-03-30 10:50 | disposition home or self-care (01) ==
LOC: ANHLAB 10:51
PROVIDERS: PCP Family Medicine; Visit Provider Internal Medicine Hematology & Oncology
DX: C34.31 Malignant neoplasm of lower lobe, right bronchus or lung (principal)
CPT/HCPCS: 36415; 80047; 80053; 85025

== ENCOUNTER 2022-04-06 11:44 | Outpatient (CLI) | payer MEDICARE, SELFPAY ==
--- NOTE | ~2022-04-06 | PE_ITS ---
EXAMINATION: PET skull to mid thigh DATE: 04/06/2022 13:44 INDICATION: Malignant neoplasm of the right lower lobe TECHNIQUE: Blood glucose level was 96 mg/dL. 11.352 mCi of 18-fluorodeoxyglucose (18-FDG) was adminis tered i.v. Low dose computed tomography (CT) images were acquired from the base of the brain to the p roximal thighs for attenuation correction and anatomic localization. Positron emission tomography (PE T) images were acquired in the same distribution beginning 55 minutes after injection. Images includi ng fused PET/CT images were reconstructed in axial, coronal, and sagittal planes. Automated exposure control technique was employed. The dose-length product was 220.26mGy-cm. COMPARISON: 08/25/2021 FINDINGS: Head/neck: There is symmetric increased activity in the oral cavity, palatine tonsils, parotid glands, larynge al muscles and ocular muscles without CT correlate, likely physiologic. No pathologically enlarged ce rvical lymphadenopathy or suspicious foci of increased FDG uptake in the visualized head or neck. Chest: Moderate emphysema with mild biapical pleural-parenchymal scarring. Decrease in size and FDG uptake o f a previously 14 x 14 mm right lower lobe nodule with maximal SUV of 7.1 which currently measures 14 x 8 mm with maximal SUV of 2.0. A previously 4-5 mm left lower lobe nodule indiscernible on the PET imaging has increased to 7 mm with maximal SUV of 1.1. Similarly a 4 mm right upper lobe nodule indis cernible on PET now measures 7 mm with maximum SUV of 1.3. Multiple small calcified pulmonary nodules along with calcified mediastinal and hilar lymph nodes consistent with old granulomatous disease. Co nsistent with old granulomatous disease. Cardiomegaly. Median sternotomy and changes of coronary michael ry bypass grafting. No pericardial effusion. No pathologically enlarged or FDG avid thoracic lymphade nopathy. Abdomen/pelvis/proximal thighs: Physiologic renal accumulation and excretion of FDG activity in the kidneys, bladder and along portio ns of ureters. Bilateral nephrolithiasis. Normal degree and heterogenous pattern of increased uptake throughout the liver and spleen without radiologic correlate or dominant FDG avid lesion. The gallbla dder, pancreas and bilateral adrenal glands are normal. Mild uptake scattered throughout the bowels w ithout radiologic correlate, also likely physiologic. No other abnormal foci of increased FDG uptake or pathologically enlarged lymphadenopathy in the abdomen, pelvis or proximal thighs. Fat-containing left inguinal hernia. Portions of the right inferior pelvis are obscured by metallic streak artifact from a right hip hemiarthroplasty. Musculoskeletal: Severe lower cervical and lower lumbar spondylosis with moderate intervening spondylosis. 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 No s uspicious lytic, blastic or FDG avid bone lesions. IMPRESSION: 1. 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 2. Increase in size and now mild discernible FDG uptake associated with 7 mm nodules in the right upp er and left lower lobe suspicious for metastatic disease. Reviewed, dictated and finalized at location B. IMPRESSION: 1. 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 2. Increase in size and now mild discernible FDG uptake associated with 7 mm no dules in the right upper and left lower lobe suspicious for metastatic disease.
[2022-04-06 12:20] LABS: Glucose Point of Care 96 mg/dl (65-105)
== END 2022-04-06 11:45 | disposition home or self-care (01) ==
PROVIDERS: PCP Family Medicine; Visit Provider Internal Medicine Hematology & Oncology
DX: C34.31 Malignant neoplasm of lower lobe, right bronchus or lung (principal)
CPT/HCPCS: 78815; A9552

== ENCOUNTER 2022-07-13 08:39 | Outpatient (CLI) | payer MEDICARE, SELFPAY ==
--- NOTE | ~2022-07-13 | CT_ITS ---
EXAMINATION: CT diagnostic chest wo con DATE: 07/13/2022 09:47 INDICATION: Malignant neoplasm of the right lower lobe TECHNIQUE: Computed tomography (CT) of the chest was performed without intravenous contrast. The dose -length product (DLP) was 141.73 mGy-cm. Automated exposure control and iterative reconstruction tech [employer] were employed. COMPARISON: 03/24/2022, 12/21/2021 FINDINGS: There is moderate emphysema. A 12 mm nodule of the right upper lobe demonstrates continued interval enlargement, measuring 8 mm and 5 mm on the two most recent comparison examinations. A 1.8 c m nodule of the right lower lobe abutting the diaphragm is slightly increased in size. Although diffi cult to discriminate from adjacent vascular structures, the previously described right lower lobe nod ule appears to be stable in size compared to the most recent CT. A 9 mm nodule of the left lower lobe continues to increase in size. No pleural effusion or pneumothorax. Cardiomegaly is noted. There is calcified coronary artery atherosclerosis. Calcified pulmonary nodules and calcified bilateral hilar and mediastinal lymph nodes are consistent with old granulomatous disease. No pathologically enlarged thoracic lymph nodes are identified. There is mild thoracic spondylosis. There are nonobstructing st ones of the right kidney. There is mild thoracic spondylosis. IMPRESSION: 1. Enlarging bilateral pulmonary nodules concerning for metastatic disease. Reviewed, dictated and finalized at location B.
== END 2022-07-13 08:40 | disposition home or self-care (01) ==
PROVIDERS: PCP Family Medicine; Visit Provider Internal Medicine Hematology & Oncology
DX: C34.31 Malignant neoplasm of lower lobe, right bronchus or lung (principal)
CPT/HCPCS: 71250

== ENCOUNTER 2022-08-04 02:18 | Outpatient (CLI) | payer MEDICARE, SELFPAY ==
[2022-07-27 09:29] VITALS: BMI 18.4
--- NOTE | 2022-07-27 09:31 | PC.NURSE ---
Pre Radiology instructions Report to the Outpatient Waiting Room, entrance under the green pavilion located off [facility], at time _0900_ on date _08/04/22_. Procedure Time: _1100_. YOU MAY BE MONITORED AT HOSPITAL FOR UP TO 4 HOURS AFTER YOUR PROCEDURE. One visitor will be allowed to accompany the patient into the hospital. The visitor will be instructed to remain with patient at all times or leave the building due to restrictions. We will allow the visitor to come back to the postoperative area when patient is ready. NO children visitors allowed at this time. You and your visitor will be asked to self-screen and do not enter if you have any COVID symptoms. A mask is required within the hospital. Patients are to have no food or drink 6 hours prior to procedure time (0500 AM) Driving will be restricted after the procedure, you must have a person to drive you home. Labs will be drawn in preop area and once reviewed, you will be taken to radiology area for procedure. When the procedure is completed, you will be taken to outpatient where you will be monitored for several hours. You may have one visitor in this area. Other than holding anti-coagulants, patient may take other medication(s) as scheduled. Prior to your appointment date patients are instructed to hold anti-coagulants after discussing with ordering provider to stop. If unable to discontinue anti-coagulants please notify radiologist. No aspirin or warfarin (Coumadin) for 7 days prior to the procedure. No clopidogrel (Plavix), ticagrelor (Brilinta), prasugrel (Effient) or dabigatran (Pradaxa) for 5 days prior to the procedure. No rivaroxaban (Xarelto), apixaban (Eliquis), dipyridamole (Aggrenox or Persantine) or cilostazol (Pletal) for 2 days prior to the procedure. Medications to discontinue per physician: _ASPIRIN_ Date to take last dose: _07/27/22_ Please leave all valuables, including medications, at home the day of procedure. The hospital will not accept responsibility for valuables. Wear comfortable, loose fitting clothing. Follow any additional instructions given to you from ordering provider. Telephone instructions given to ____PT and asked if any additional questions and then verbalized understanding. Patient advised to call scheduling provider office or registration scheduling [phone] if any additional questions.
[2022-08-04] VITALS (9 sets, daily range): BP systolic 118–163; BP diastolic 61–91; PULSE 68–85; RESP 16–32; TEMP 36.7; O2SAT 94–100; BMI 18.7
--- NOTE | ~2022-08-04 | XR_ITS ---
EXAMINATION: XR chest 1V DATE: 08/04/2022 11:32 INDICATION: Post right upper lobe percutaneous lung biopsy. TECHNIQUE: Sitting AP view of the chest was obtained. COMPARISON: Chest radiograph dated 08/10/2021 FINDINGS: No pneumothorax or pleural effusion/hemothorax. Peripheral wedge-shaped opacity at the lateral right upper lobe corresponding to pulmonary hemorrhage related to biopsy of the right upper lobe nodule whi ch is obscured by the surrounding hemorrhage. Attending the medial side of the right hemidiaphragm bryan coello related to radiation fibrosis for treatment of a previously biopsied malignant right lower lobe nodule. Multiple scattered small calcified pulmonary nodules consistent with old granulomatous diseas e. Borderline heart size accentuated by a prominent left paracardial fat pad. Median sternotomy wires , ostial markers and mediastinal surgical clips consistent with prior coronary artery bypass grafting . Left atrial occlusion clip. IMPRESSION: 1. Region of peripheral iatrogenic pulmonary hemorrhage in the right upper lobe post percutaneous bio psy of a right upper lobe nodule which is obscured by the hemorrhage. No pneumothorax or hemothorax. Reviewed, dictated and finalized at location A. [employer] IMPRESSION: 1. Region of peripheral iatrogenic pulmonary hemorrhage in the right upper lobe post percutaneous biopsy of a right upper lobe nodule which is obscured by the hemorrhage. No pneumothorax or hemothorax.
--- NOTE | ~2022-08-04 | CT_ITS ---
EXAMINATION: CT biopsy lung w/imaging DATE: 08/04/2022 11:29 INDICATION: Right upper lobe nodule TECHNIQUE: The procedure including the risks and benefits was discussed with the patient. Risks discu ssed included infection, approximately 1/20 risk of symptomatic hemorrhage beyond mild hemoptysis, ap proximately 1/3 risk of pneumothorax, and approximately 1/10 risk of pneumothorax severe enough to wa rrant chest tube placement. The patient understood the risks and agreed to proceed. The patient was p laced supine. The skin overlying the infraclavicular anterior right upper thorax was prepped and imelda ped in sterile fashion. Anesthetic was administered with 1% lidocaine subcutaneously. A [address] needle was advanced under CT guidance to the lesion of interest. A 20 gauge core biopsy needle wa s then used to obtain 2 core biopsy specimens. The patient began to cough following the second biopsy there was brisk bleeding through the guide needle. The procedure was terminated prior to the planned third core biopsy, the needle was removed and the patient placed in the right lateral decubitus posi tion. The entry site was cleaned and dressed. The patient coughed up a small amount of blood for a sh ort period of time. Supplemental oxygen was briefly turned off to establish a new baseline oxygen sat uration level which was 88% on room air which increased to 90% on 2 L by nasal cannula and 92% on 4 L nasal cannula with the patient in no apparent distress. Additional CT imaging was obtained which dem onstrated a localized region of pulmonary hemorrhage at the posterolateral aspect of the inferior rig ht upper lobe. Subsequent post procedure chest radiograph demonstrated no pneumothorax and the patien t was transferred to the recovery area. The patient's hypoxia resolved with oxygen saturation of 95-9 7% on room air. There is also improvement in the pulmonary hemorrhage on subsequent chest radiographs . The patient was discharged with instructions to return to the emergency department if she experienc ed recurrence of hemoptysis or atypical worsening shortness of breath or chest pain. The dose-length product was 188.19 mGy-cm. FINDINGS: CT images demonstrate the outer needle tip adjacent to a 1.4 cm right upper lobe nodule. Re gion of post procedure pulmonary hemorrhage surrounding the nodule at the peripheral posterolateral a spect of the inferior right upper lobe. IMPRESSION: 1. Successful CT-guided biopsy of a 1.4 cm right upper lobe nodule. 2. Moderate-sized region of post procedure pulmonary hemorrhage in the right upper lobe which demons trated improvement on serial chest radiographs and with resolution of the patient's transient hypoxia prior to discharge. Reviewed, dictated and finalized at location A. HING ASSOCIATE IMPRESSION: 1. Successful CT-guided biopsy of a 1.4 cm right upper lobe nodule. 2. Moderate-sized region of post procedure pulmonary hemorrhage in the right up per lobe which demonstrated improvement on serial chest radiographs and with r esolution of the patient's transient hypoxia prior to discharge.
--- NOTE | ~2022-08-04 | XR_ITS ---
EXAMINATION: XR chest 1V portable DATE: 08/04/2022 12:31 INDICATION: Status post right upper lobe percutaneous lung biopsy TECHNIQUE: frontal view of the chest was obtained. COMPARISON: Chest radiograph dated 08/04/2022 at 11:27 AM FINDINGS: No significant change in a wedge-shaped region of pulmonary hemorrhage surrounding the biopsied right upper lobe nodule, the latter concerning for malignancy. Multiple scattered small calcified nodules throughout both lungs consistent with old granulomatous disease. No other airspace opacities, pulmona ry edema, pleural effusion or pneumothorax. Borderline heart size. Median sternotomy wires and medias tinal surgical clips are seen, likely from prior coronary artery bypass grafting. Left atrial appenda ge clipping. IMPRESSION: 1. No significant change in a peripheral wedge-shaped region of pulmonary hemorrhage in the right upp er lobe surrounding the biopsied nodule which is concerning for malignancy. Reviewed, dictated and finalized at location A. RS ASSEMBLER IMPRESSION: 1. No significant change in a peripheral wedge-shaped region of pulmonary hemor rhage in the right upper lobe surrounding the biopsied nodule which is concerni ng for malignancy.
--- NOTE | ~2022-08-04 | XR_ITS ---
EXAMINATION: XR chest 1V portable DATE: 08/04/2022 14:27 INDICATION: Status post percutaneous biopsy of a right upper lobe nodule TECHNIQUE: frontal and lateral views of the chest were obtained. COMPARISON: Chest radiograph dated 08/04/2022 at 12:25 PM and 11:27 AM FINDINGS: Decrease in the peripheral wedge-shaped airspace opacity inferolateral right upper lobe consistent wi th resolving pulmonary hemorrhage post recent percutaneous biopsy of a right upper lobe nodule which is obscured and hemorrhage and concerning for malignancy. No pleural effusion or pneumothorax. Multip le scattered small calcified pulmonary nodules consistent with old granulomatous disease. Borderline heart size. Median sternotomy wires, ostial markers and mediastinal surgical clips consistent with pr ior coronary artery bypass grafting. Left atrial appendage clipping. IMPRESSION: 1. Resolving right upper lobe pulmonary hemorrhage post percutaneous biopsy of a right upper lobe nod ule obscured by the hemorrhage which is concerning for malignancy. Reviewed, dictated and finalized at location A. ANALYST IMPRESSION: 1. Resolving right upper lobe pulmonary hemorrhage post percutaneous biopsy of a right upper lobe nodule obscured by the hemorrhage which is concerning for ma lignancy.
[2022-08-04 09:57] LABS: Mean Platelet Volume 9.8 fl (7.4-10.4); Platelet Count Result 223 k/mm3 (150-375)
[2022-08-04 10:02] LABS: Prothrombin Time 13.2 Seconds (11.1-14.7)
--- NOTE | 2022-08-04 12:47 | SUR.PHASEII ---
PATIENT UP TO BATHROOM VIA WHEELCHAIR. SLIGHTLY UNSTABLE. MODERATE SOB. LUNGS CLEAR WITH GOOD AERATION. WEANED OFF OXYGEN; SATS >94% ON RA. NO COUGHING UP BLOOD; RARE DRY COUGH. DR. ERAZO NOTIFIED RE: SOB.
--- NOTE | 2022-08-04 13:48 | SUR.PHASEII ---
PATIENT BREATHING IMPROVED. ONLY MILD SOB NOW. NO COUGHING OF BLOOD.
--- NOTE | 2022-08-04 14:25 | SUR.PHASEII ---
THIRD POSTOP PORTABLE XRAY DONE.
--- NOTE | 2022-08-04 14:44 | SUR.PHASEII ---
DR. ERAZO CALLED TO ASK IF PATIENT CAN GO HOME; HE WILL DISCHARGE HER AFTER SEEING HER MOMENTARILY.
--- NOTE | 2022-08-04 15:00 | SUR.PHASEII ---
DR. ERAZO CAME TO SEE PT.
--- NOTE | 2022-08-04 15:01 | SUR.PHASEII ---
1445 PATIENT WALKING IN [place] WITH RN. PATIENT STATES SHE HAS SLIGHT UNSTEADINESS AT BASELINE.
== END 2022-08-04 15:00 | disposition home or self-care (01) ==
PROVIDERS: PCP Family Medicine; Referring Provider Radiology Radiation Oncology; Visit Provider Radiology Diagnostic Radiology
PROC: BB24ZZZ Computerized Tomography (CT Scan) of Bilateral Lungs (ICD-10-PCS; CPT 32408; principal; 2022-08-04 11:00)
DX: R91.1 Solitary pulmonary nodule (principal)
CPT/HCPCS: 32408; 36415; 71045; 85049; 85610; 88305; 88312

== ENCOUNTER 2022-11-23 08:41 | Outpatient (CLI) | payer MEDICARE, SELFPAY ==
--- NOTE | ~2022-11-23 | CT_ITS ---
CT Scan of the Chest without Contrast: Clinical Indication: Lung cancer Technique: Contiguous sections were acquired throughout the chest without intravenous contrast. Dose reduction technique was used on this scan by utilizing automated exposure control and iterative recon struction technique. The dose-length product (DLP) was 131.53 mGy-cm. COMPARISON: 07/13/2022 and 12/21/2021 Findings: There is no evidence of any significant mediastinal, hilar or axillary lymphadenopathy. There are ath erosclerotic calcifications of the aorta. No aortic aneurysm. Evidence of prior cardiac surgery. There is no evidence of pleural or pericardial effusion. Spiculated right upper lobe lesion is increased in size from prior exam, now measuring 1.7 x 1.5 cm. Irregular spiculated lesion at the right lung base is definitely increased since 11/24/2021, probably m inimally increased since 07/13/2022.. 1 cm spiculated left lower lobe pulmonary nodule is increased s bev 12/21/2021, possibly minimally increased from most recent prior exam. Multiple scattered calcifie d granulomas are present. There is mild to moderate emphysema. Images through the upper abdomen reveal no abnormalities. Impression: Continued mild interval increase in size of spiculated lesions in the right upper lobe, right lung ba se, and left lower lobe, as detailed above. Findings are consistent with interval progression of neop lastic/metastatic lesions. Reviewed, dictated and finalized at location M. CASTER Impression: Continued mild interval increase in size of spiculated lesions in the right upp er lobe, right lung base, and left lower lobe, as detailed above. Findings are consistent with interval progression of neoplastic/metastatic lesions.
== END 2022-11-23 08:42 | disposition home or self-care (01) ==
PROVIDERS: PCP Family Medicine; Visit Provider Internal Medicine Hematology & Oncology
DX: C34.31 Malignant neoplasm of lower lobe, right bronchus or lung (principal)
CPT/HCPCS: 71250

== ENCOUNTER 2022-12-19 13:00 | Outpatient (CLI) | payer MEDICARE, SELFPAY ==
--- NOTE | ~2022-12-19 | PE_ITS ---
EXAMINATION: PET skull to mid thigh DATE: 12/19/2022 15:25 INDICATION: Other nonspecific abnormal findings of lung field. TECHNIQUE: Blood glucose level was 84 mg/dL. 10.059 mCi of 18-fluorodeoxyglucose (18-FDG) was adminis tered i.v. Low dose computed tomography (CT) images were acquired from the base of the brain to the p roximal thighs for attenuation correction and anatomic localization. Automated exposure control was e mployed. Dose-length product (DLP) was 481 mGy-cm. Positron emission tomography (PET) images were acq uired in the same distribution. COMPARISON: Chest CT 07/13/2022 FINDINGS: Head/neck: There are no pathologically enlarged lymph nodes. Chest: Calcified pulmonary nodules and calcified hilar and mediastinal lymph nodes are consistent wit h old granulomatous disease. In the right upper lobe, there is a 2.1 cm nodule with maximum SUV of 13 . There are tree-in-bud opacities peripheral to the nodule, consistent with pneumonia. There are airs pace opacities in anterobasal segment right lower lobe with maximum SUV of 2.3. There is a 8 mm nodul e in left lower lobe with maximum SUV of 8.5. No pleural effusion. Cardiomegaly is noted. There are c oronary artery calcifications. There are changes of coronary artery bypass grafting. Abdomen/pelvis/proximal thighs: Calcifications in the liver and spleen are consistent with old granul omatous disease. The gallbladder, pancreas, and adrenal glands are normal. There is a 14 mm cyst in r ight kidney. There is an 18 mm cyst in left kidney. There are no dilated loops of bowel. There are bi lateral inguinal hernias containing fat. There are no pathologically enlarged lymph nodes. There is n o free intraperitoneal fluid. There is calcified atherosclerosis of the aorta and many of the other a rteries. There is a right hip arthroplasty. IMPRESSION: 1. 2.1 cm nodule in right lung upper lobe with maximum SUV of 13, increased from 1.2 cm on 07/13/2022 . Biopsy on 08/04/2022 demonstrated chronic inflammation. This finding remains suspicious for metasta tic disease. 2. 8 mm nodule in left lung lower lobe with maximum SUV of 8.5, stable in size from 07/13/22 and incr eased in size from 5 mm on 12/21/21, most likely metastatic disease. 3. Airspace opacities with low activity in anterobasal segment right lower lobe, consistent with myron dominique primary bronchogenic carcinoma and radiation pneumonitis. Reviewed, dictated and finalized at location A. IMPRESSION: 1. 2.1 cm nodule in right lung upper lobe with maximum SUV of 13, increased fro m 1.2 cm on 07/13/2022. Biopsy on 08/04/2022 demonstrated chronic inflammation. This finding remains suspicious for metastatic disease. 2. 8 mm nodule in left lung lower lobe with maximum SUV of 8.5, stable in size from 07/13/22 and increased in size from 5 mm on 12/21/21, most likely metastati c disease. 3. Airspace opacities with low activity in anterobasal segment right lower lobe , consistent with treated primary bronchogenic carcinoma and radiation pneumoni tis.
[2022-12-19 13:58] LABS: Glucose Point of Care 84 mg/dl (65-105)
== END 2022-12-19 13:01 | disposition home or self-care (01) ==
PROVIDERS: PCP Family Medicine; Visit Provider Radiology Radiation Oncology
DX: R91.8 Other nonspecific abnormal finding of lung field (principal); R91.1 Solitary pulmonary nodule
CPT/HCPCS: 78815; A9552

== ENCOUNTER 2023-01-24 09:54 | Outpatient (CLI) | payer MEDICARE, SELFPAY ==
--- NOTE | ~2023-01-24 | MR_ITS ---
EXAMINATION: MR brain/brain stem wo/w con DATE: 01/24/2023 11:19 INDICATION: Lung cancer. Memory change. TECHNIQUE: Magnetic resonance imaging (MRI) of the brain and brainstem was performed without and with 9 mL MultiHance intravenous contrast. COMPARISON: None. FINDINGS: There is an empty sella. There are scattered areas of nonspecific increased T2-weighted sig nal intensity in the cerebral white matter. There is no intracranial hemorrhage, acute infarction, or abnormal intracranial mass lesion. The ventricles are normal in size. There are likely changes of oc ular lens replacement surgeries. The paranasal sinuses are clear. The mastoid air cells are normal. IMPRESSION: 1. No evidence of metastatic disease. 2. Moderate nonspecific cerebral white matter disease, which likely represents chronic small vessel i schemic disease. Reviewed, dictated and finalized at location A. IMPRESSION: 1. No evidence of metastatic disease. 2. Moderate nonspecific cerebral white matter disease, which likely represents chronic small vessel ischemic disease.
== END 2023-01-24 09:55 | disposition home or self-care (01) ==
PROVIDERS: PCP Family Medicine; Visit Provider Radiology Radiation Oncology
DX: C34.90 Malignant neoplasm of unspecified part of unspecified bronchus or lung (principal); R93.0 Abnormal findings on diagnostic imaging of skull and head, not elsewhere classified
CPT/HCPCS: 70553; A9577

== ENCOUNTER 2023-01-25 10:16 | Outpatient (CLI) | payer MEDICARE, SELFPAY ==
--- NOTE | ~2023-01-25 | XR_ITS ---
Thoracic spine: Clinical Indication: Back pain AP and lateral views were performed. There are probable mild compression deformities of T9 and T11. The intervertebral disc spaces appear normal. Paravertebral soft tissues appear normal. Impression: Probable mild compression fractures of T9 and T11. Reviewed, dictated and finalized at [facility]. Impression: Probable mild compression fractures of T9 and T11.
[2023-01-25 11:37] LABS: Thyroid Stimulating Hormone Reflex 0.878 uIU/mL (0.465-4.68)
== END 2023-01-25 10:17 | disposition home or self-care (01) ==
PROVIDERS: PCP Family Medicine; Visit Provider Physician Assistant Medical
DX: F41.9 Anxiety disorder, unspecified (principal); M54.6 Pain in thoracic spine
CPT/HCPCS: 36415; 72072; 84443

== ENCOUNTER 2023-02-06 09:50 | Outpatient (CLI) | payer MEDICARE, SELFPAY ==
--- NOTE | ~2023-02-06 | XR_ITS ---
Thoracic spine: Clinical Indication: Back pain AP and lateral views were performed. Mild to moderate compression fracture of what is probably T10 noted. No other definite fracture ident ified. The intervertebral disc spaces appear normal. Paravertebral soft tissues appear normal. Impression: Mild to moderate compression fracture deformity of what is probably T10. Reviewed, dictated and finalized at [facility]. Impression: Mild to moderate compression fracture deformity of what is probably T10.
--- NOTE | ~2023-02-06 | XR_ITS ---
AP and oblique views of the bilateral ribs Clinical History: Pain Findings: No rib fracture is seen. Osseous alignment is anatomic. Lungs multiple calcified pulmonary granulomas are noted. Cardiomediastinal contour is within normal limits. Soft tissues are unremarkabl e. Impression: No rib fracture is seen. Reviewed, dictated and finalized at [facility]. Impression: No rib fracture is seen.
== END 2023-02-06 09:51 | disposition home or self-care (01) ==
PROVIDERS: PCP Family Medicine; Visit Provider Physician Assistant Medical
DX: C34.31 Malignant neoplasm of lower lobe, right bronchus or lung (principal); R07.81 Pleurodynia; M54.9 Dorsalgia, unspecified
CPT/HCPCS: 71110; 72070

== ENCOUNTER 2023-02-08 09:59 | Outpatient (CLI) | payer MEDICARE, SELFPAY ==
--- NOTE | ~2023-02-08 | CT_ITS ---
EXAMINATION: CT thoracic spine wo con DATE: 02/08/2023 10:18 INDICATION: Compression fracture of T10. TECHNIQUE: Computed tomography (CT) of the thoracic spine was performed without intravenous contrast. Automated exposure control and iterative reconstruction technique were employed. The dose-length pro duct was 182.66 mGy-cm. COMPARISON: Chest CT 11/23/2022, thoracic spine radiographs 02/06/2023 FINDINGS: Calcified pulmonary nodules and calcified hilar and mediastinal lymph nodes are consistent with old granulomatous disease. There are coronary artery calcifications. There is moderate emphysema . There is calcified atherosclerosis of the aorta and many of the other arteries. There is 14 degrees dextroscoliosis of thoracic spine. There is a burst fracture of T10 with 1/5 loss of height. There i s mild chronic height loss of T11 vertebral body. There is severe cervical spondylosis. There is mild ly decreased disc height at multiple levels in thoracic spine. There is multilevel mild to moderate f acet joint osteoarthritis in thoracic spine. On the right, there is mild neural foraminal stenosis at T3-T4 and T4-T5. No central canal stenosis. IMPRESSION: 1. Acute/subacute T10 burst fracture, new from 11/23/22. 2. Mild thoracic spondylosis. Severe cervical spondylosis. 3. Thoracic dextroscoliosis. Reviewed, dictated and finalized at location A.
== END 2023-02-08 10:00 | disposition home or self-care (01) ==
PROVIDERS: PCP Family Medicine; Visit Provider Physician Assistant Medical
DX: C34.31 Malignant neoplasm of lower lobe, right bronchus or lung (principal); M47.894 Other spondylosis, thoracic region; S22.070D Wedge compression fracture of T9-T10 vertebra, subsequent encounter for fracture with routine healing; X58.XXXD Exposure to other specified factors, subsequent encounter
CPT/HCPCS: 72128

== ENCOUNTER 2023-04-16 10:14 | Outpatient (CLI) | payer MEDICARE, SELFPAY ==
--- NOTE | ~2023-04-16 | CT_ITS ---
CT Scan of the Chest without Contrast: Clinical Indication: Lung cancer Technique: Contiguous sections were acquired throughout the chest without intravenous contrast. Dose reduction technique was used on this scan by utilizing automated exposure control and iterative recon struction technique. The dose-length product (DLP) was 116.45 mGy-cm. COMPARISON: 11/23/2022 Findings: There is no evidence of any significant mediastinal, hilar or axillary lymphadenopathy. There are ext ensive atherosclerotic calcifications of the aorta and coronary vessels. There is no evidence of pleural or pericardial effusion. There is mild to moderate emphysema. Scattered calcified granulomas are present. Spiculated right upp er lobe lesion is decreased in size, now measuring 1.2 cm in diameter (axial image 49). There is irre gular airspace consolidation the right lower lobe at the lung base, similar to prior exam. Previously noted spiculated left lower lobe pulmonary nodule is significantly decreased in size, now measuring approximately 7 mm in maximum diameter. Images through the upper abdomen reveal no abnormalities. There are moderate compression fractures of T9 and T10, new from prior exam. Impression: Spiculated right upper lobe lesion and spiculated left lower lobe pulmonary nodule are both decreased in size, as detailed above, consistent with partial interval response to therapy. Irregular airspace opacity at the right lower lobe/right lung base is similar to prior exam, and in c onjunction with prior PET/CT results, suggest chronic sequelae of treated disease. Moderate compression fractures of T9 and T10, new from prior exam. If there is concern for pathologic fracture, then MR imaging would be recommended to better assess the underlying marrow signal charact eristics. Mild to moderate emphysema. Reviewed, dictated and finalized at location M. Impression: Spiculated right upper lobe lesion and spiculated left lower lobe pulmonary nod ule are both decreased in size, as detailed above, consistent with partial inte rval response to therapy. Irregular airspace opacity at the right lower lobe/right lung base is similar t o prior exam, and in conjunction with prior PET/CT results, suggest chronic seq uelae of treated disease. Moderate compression fractures of T9 and T10, new from prior exam. If there is concern for pathologic fracture, then MR imaging would be recommended to better assess the underlying marrow signal characteristics. Mild to moderate emphysema.
== END 2023-04-16 10:15 | disposition home or self-care (01) ==
PROVIDERS: PCP Internal Medicine Hematology & Oncology; Visit Provider Radiology Radiation Oncology
DX: C34.90 Malignant neoplasm of unspecified part of unspecified bronchus or lung (principal); J43.9 Emphysema, unspecified
CPT/HCPCS: 71250

== ENCOUNTER 2023-04-19 08:11 | Inpatient (IN) | payer MEDICARE, SELFPAY ==
[2023-04-19] VITALS (29 sets, daily range): BP systolic 112–173; BP diastolic 57–77; PULSE 73–105; RESP 16–30; TEMP 36.4–38.2; O2SAT 93–100; BMI 17.2; BMI 16.5
--- NOTE | ~2023-04-19 | MR_ITS ---
EXAMINATION: MR thoracic spine wo/w con DATE: 04/20/2023 11:54 INDICATION: Compression fractures TECHNIQUE: Magnetic resonance imaging (MRI) of the thoracic spine was performed without and with 8 mL Multihance intravenous contrast. Sagittal localizer T1-weighted FSE of the cervicothoracic spine was obtained. Sequences included sagittal T2-weighted FSE, sagittal T2-weighted FS FSE, sagittal T1-weig hted FSE and axial T1-weighted SE. Postcontrast sequences included axial T2-weighted FSE, sagittal T1 -weighted FS FSE, and axial T1-weighted FS SE. COMPARISON: CT dated 02/08/2023 FINDINGS: Mild mid thoracic kyphosis with subacute compression fractures at T9 and T10. There is mild associat ed marrow edema and enhancement with interval progression of now two thirds anterior to central verte bral body height loss at T9 and 40% anterior vertebral body height loss at T10. Additional marrow marie ma and enhancement associated with a small linear fracture line underlying the left posterior margin of the inferior endplate of T8 without appreciable vertebral body height loss. Additional marrow keith a and enhancement at the medial aspect of the posterior right eighth rib with subtle angulation of th e inner cortex and low signal intensity fracture line. Marrow signal is otherwise normal throughout. There are few Schmorl's nodes along the endplates of a few of the lower thoracic vertebral bodies. Pa rtially visualized moderate to severe lower cervical spondylosis. Mild disc height loss at T12-L1.Sma ll disc bulges resulting in minimal to mild central canal stenosis at T8-T9 through L2-L3.There is mu ltilevel mild to moderate facet osteoarthritis throughout the thoracic spine which contributes to mil d bilateral neural foraminal stenosis at T9-T10 and minimal to mild neural foraminal stenosis a few a dditional thoracic levels. There is normal spinal cord signal. The conus terminates at L1. Small rig ht and tiny left posterior layering pleural effusions with associated dependent compressive atelectas is in the bilateral lower lobes. 1.7 cm T2 hyperintense nonenhancing cyst at the upper pole the left kidney. IMPRESSION: 1. Interval progression of subacute compression fractures at T9 and T10 with additional small sub end plate fracture along the left posterior aspect of the inferior endplate of T8 and nondisplaced fractu re at the medial aspect of the right eighth rib. 2. Mild thoracic spondylosis. 3. Small right and tiny left posterior layering pleural effusions. Reviewed, dictated and finalized at location A. IMPRESSION: 1. Interval progression of subacute compression fractures at T9 and T10 with ad ditional small sub endplate fracture along the left posterior aspect of the inf erior endplate of T8 and nondisplaced fracture at the medial aspect of the righ t eighth rib. 2. Mild thoracic spondylosis. 3. Small right and tiny left posterior layering pleural effusions.
--- NOTE | ~2023-04-19 | XR_ITS ---
Clinical Indication: Chest pain PA and lateral views of the chest: Comparison: 08/04/2022 Findings: Probable COPD pattern of the lungs. Scattered calcified granulomas are present. There is mi nimal haziness right lung base, nonspecific. Cardiomediastinal silhouette is stable, status post CABG . Severe compression fracture of T9 present. Moderate compression fracture of T10 present. Impression: COPD. Minimal haziness right lung base, nonspecific. Correlate for pneumonia. Compression fractures of T9 and T10, as above. Reviewed, dictated and finalized at location M. Impression: COPD. Minimal haziness right lung base, nonspecific. Correlate for pneumonia. Compression fractures of T9 and T10, as above.
--- NOTE | ~2023-04-19 | CT_ITS ---
Clinical Indication: Chest pain, history of lung cancer CT Scan of the Chest with Contrast: Technique: Contiguous sections were acquired throughout the chest after intravenous administration of 100 cc of Omnipaque 350. Dose reduction technique was used on this scan by utilizing automated expos ure control and iterative reconstruction technique. The dose-length product (DLP) was 308.72 mGy-cm. COMPARISON: 04/16/2023 Findings: There is no evidence of any significant mediastinal, hilar or axillary lymphadenopathy. There are mul tiple pulmonary emboli, predominantly within segmental branches in the left upper lobe, right upper l obe, and right lower lobe.. There is no evidence of aortic dissection or aneurysm. There are extensiv e atherosclerotic calcifications of the aorta and coronary arteries There is no evidence of pleural or pericardial effusion. Moderate emphysema present. There is a stable 1.1 cm spiculated nodule in the right upper lobe (axial image 52). There is irregular airspace opacity in the right lung base, unchanged (axial image 78). C alcified left lower lobe granulomas are present. Minimal residual left lower lobe pulmonary nodules u nchanged (axial image 59). Images through the upper abdomen reveal no abnormalities. Compression fractures of T9 and T10 are aga in present. Impression: Multiple pulmonary emboli, predominantly in segmental level pulmonary arteries at the left upper lobe , right upper lobe, and right lower lobe. Stable pulmonary nodules/opacities, as detailed above, consistent with neoplastic disease and/or sequ elae of treated disease. Please see recent prior CT dated 04/16/2023 for further details. Moderate emphysema. Stable T9 and T10 compression fractures. Reviewed, dictated and finalized at [facility]. Impression: Multiple pulmonary emboli, predominantly in segmental level pulmonary arteries at the left upper lobe, right upper lobe, and right lower lobe. Stable pulmonary nodules/opacities, as detailed above, consistent with neoplast ic disease and/or sequelae of treated disease. Please see recent prior CT dated 04/16/2023 for further details. Moderate emphysema. Stable T9 and T10 compression fractures.
--- NOTE | ~2023-04-19 | US_ITS ---
EXAMINATION:US venous doppler LE BI INDICATION:Pulmonary embolism. Patient on heparin drip. TECHNIQUE: Multiple grayscale, color flow and Doppler images of the right and left lower extremity de ep venous systems were obtained and reviewed. COMPARISON:CTA chest dated 04/19/2023 FINDINGS: The right common femoral, superficial femoral and popliteal veins demonstrate normal respir atory variation, augmentation and compressibility. Color flow is also seen within the posterior tibi al, peroneal, greater saphenous and profunda veins. There is deep venous thrombosis of the left peron eal vein. The remainder of the left lower extremity veins are patent. The left greater saphenous vein was harvested for previous CABG. IMPRESSION: 1: Deep venous thrombosis of the left peroneal vein. Reviewed, dictated and finalized at location A.
--- NOTE | 2023-04-19 08:12 | ECG_ITS ---
Measurements Intervals [place] Rate: 94 P: 64 NH: 135 QRS: 36 QRSD: 92 T: 53 QT: 372 QTc: 466 Interpretive Statements SINUS RHYTHM NONSPECIFIC ST & T-WAVE ABNORMALITY- ANTEROLAT/INF LEADS BASELINE ARTIFACT- I, II, III, AVR, AVL, AVF, V1-V6 BORDERLINE ECG COMPARED TO ECG 04/26/2020 11:40:48 NO SIGNIFICANT CHANGES Electronically Signed On 04-20-2023 11:31:42 CDT by Raymond Cloud D.O.
[2023-04-19 08:33] LABS: Basophils Absolute Auto 0.1 K/mm3 (0.0-0.1); Basophils Percent Auto 0.9 % (0.2-1.2); Eosinophils Absolute Auto 0.1 K/mm3 (0-0.3); Eosinophils Percent Auto 1.1 % (0-4.4); Hematocrit 40.1 % (37.0-47.0); Hemoglobin 12.6 g/dL (12.0-15.0); Immature Granulocyte Absolute 0.08 K/mm3 (0.00-0.031); Immature Granulocyte Percent A 0.8 % (0-0.5); Lymphocytes Absolute Auto 0.96 K/mm3 (0.9-3.2); Lymphocytes Percent Auto 9.1 % (18.3-44.2); Mean Corpuscular HGB Conc 31.4 g/dl (32-36); Mean Corpuscular Hemoglobin 29.5 pg (26-34); Mean Corpuscular Volume 93.9 fl (80-100); Mean Platelet Volume 9.7 fl (7.4-10.4); Monocytes Absolute Auto 0.8 K/mm3 (0.1-0.6); Monocytes Percent Auto 7.9 % (2.6-8.5); Neutrophils Absolute Auto 8.5 K/mm3 (1.3-6.7); Neutrophils Percent Auto 80.2 % (45.5-73.1); Platelet Count Result 197 k/mm3 (150-375); Red Blood Count 4.27 M/mm3 (4.2-5.4); Red Cell Distribution Width 14.4 % (11.5-14.5); White Blood Count 10.6 K/mm3 (4.5-10.0)
[2023-04-19 08:43] LABS: Alanine Aminotransferase 16 U/L (6-35); Albumin Level 4.3 g/dL (3.5-5.1); Alkaline Phosphatase 85 U/L (38-126); Anion Gap 11 mmol/L (8-16); Aspartate Amino Transferase 22 U/L (14-36); Bilirubin,Total 1.1 mg/dL (0.2-1.3); Blood Urea Nitrogen 14 mg/dL (7-17); Calcium 9.1 mg/dL (8.4-10.2); Carbon Dioxide 27 mmol/L (22-30); Chloride 98 mmol/L (98-107); Estimated CRCL calculation 27 ml/min; Estimated Glomerular Filt Rate 60; Glucose 122 mg/dL (65-110); Lipase 51 U/L (23-300); Potassium 3.9 mmol/L (3.4-5.0); Sodium 136 mmol/L (137-145)
[2023-04-19 08:48] LABS: Prothrombin Time 13.9 Seconds (11.1-14.7)
[2023-04-19 08:49] LABS: Partial Thromboplastin Time 27.7 SECONDS (22.3-36.8)
[2023-04-19 08:54] LABS: Troponin I 0.019 ng/mL (0.000-0.034)
--- NOTE | 2023-04-19 09:22 | ED.CHESTPAIN ---
HPI - Chest Pain General Chief Complaint: Chest Pain <VERONICA Fu Last Filed: 04/19/23 18:41> Stated Complaint: chest pain <VERONICA Fu Last Filed: 04/19/23 18:41> Time Seen by Provider: 04/19/23 09:00 <VERONICA Fu Last Filed: 04/19/23 18:41> Source: patient, family and old records reviewed <VERONICA Fu Last Filed: 04/19/23 18:41> Mode of arrival: ambulatory <VERONICA Fu Last Filed: 04/19/23 18:41> Limitations: no limitations <VERONICA Fu Last Filed: 04/19/23 18:41> History of Present Illness HPI narrative: Patient is an 83-year-old female, with past medical history of right-sided lung cancer, who presents to ED with report of chest pain. Patient reports she woke up around 7 AM this morning with pain in her mid to right sided chest. Pain has been constant since then. Described as an aching pain. Worse with taking deep breaths, no other significant aggravating or alleviating factors. Patient denies history of similar pain. 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 She has had history of random pains per her son, which has previously been attributed to her radiation therapy. Patient just recently finished radiation for her lung cancer and had a CT scan 3 days ago to evaluate for improvement. Also has history of CAD status post CABG. 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 Patient denies any recent fever, cough, cold symptoms, lower extremity pain or swelling, shortness of breath, abdominal pain, nausea, vomiting. <VERONICA Fu Last Filed: 04/19/23 18:41> Related Data Home Medications: Home Medications Medication Instructions Recorded Confirmed metoprolol succinate 25 mg 25 mg PO QAM 08/15/19 04/19/23 tablet,extended release 24 hr simvastatin 10 mg tablet 10 mg PO QAM 08/15/19 04/19/23 omeprazole 20 mg capsule,delayed 20 mg QAM 08/03/21 04/19/23 release albuterol sulfate 90 mcg/actuation 2 puff inhalation Q12H PRN 04/19/23 04/19/23 aerosol inhaler shortness of breath or wheezing <Charlotte Castro PA-C - Last Filed: 04/19/23 18:41> Allergies/Adverse Reactions: Allergies Allergy/AdvReac Type Severity Reaction Status Date / Time iodine Allergy Unknown Vomiting Verified 04/24/23 15:25 shellfish derived Allergy Unknown Nausea and Verified 04/24/23 15:25 Vomiting shrimp Allergy Unknown Nausea and Verified 04/24/23 15:25 Vomiting <Charlotte Castro PA-C - Last Filed: 04/19/23 18:41> Review of Systems Review of Systems: CONSTITUTIONAL: Denies fever, chills, or sweats. ENT: Denies rhinorrhea, congestion, sore throat. CARDIOVASCULAR: See HPI. RESPIRATORY: See HPI. GASTROINTESTINAL: Denies abdominal pain, nausea, vomiting, or diarrhea. SKIN: Denies rash or itching. MUSCULOSKELETAL: Denies back pain, joint pain, or myalgia. <Charlotte Castro PA-C - Last Filed: 04/19/23 18:41> All systems reviewed & are unremarkable except as noted in HPI and below <Charlotte Castro PA-C - Last Filed: 04/19/23 18:41> PMFSH Past Medical History Medical History: Medical History Coronary artery disease Dyslipidemia Essential (primary) hypertension GERD without esophagitis Right lower lobe pulmonary nodule <Charlotte Castro PA-C - Last Filed: 04/19/23 18:41> Surgical History Surgical History: Surgical History H/O breast biopsy Left breast H/O cardiac catheterization H/O colonoscopy with polypectomy H/O inguinal hernia repair History of bladder repair surgery (~2015) History of bladder surgery History of cataract extraction (~2017) History of coronary artery bypass graft 09/2017 History of hip surgery History of removal of pigmented skin
[2023-04-19] MEDS: NITROGLYCERIN SL 0.4 MG TABLET SUBLINGUAL (09:40)
[2023-04-19] MEDS: ASPIRIN 81 MG CHEWABLE TABLET 324 MG PO (09:40)
[2023-04-19 09:46] LABS: D Dimer 3.99 ug/mL (<0.48)
--- NOTE | 2023-04-19 10:06 | PC.NURSE ---
2nd dose of nitro given.
[2023-04-19] MEDS: HEPARIN SOD/D5W 100 UNITS/ML 25,000 UNITS/250 ML BAG 8 UNITS IV CONT (11:17)
[2023-04-19] MEDS: HEPARIN SODIUM 5,000 UNITS/ML VIAL 3500 UNITS IV PUSH (11:17)
[2023-04-19 11:46] LABS: Troponin I < 0.012 ng/mL (0.000-0.034)
--- NOTE | 2023-04-19 13:32 | PM.IMHP ---
H&P: HPI History of Present Illness Date/Time: 04/19/23 13:32 Chief Complaint: This is an 83-year-old female patient who has a history of right-sided lung cancer. The patient has been undergoing radiation treatments per Dr. Leigh Ann crowe. The patient was complaining of having mid right chest pain today. She has had no prior history of any PEs. Her pain was worse with taking deep breaths. Also the pain was worse with movement. The patient has had a cardiac history were she has had bypass surgeries. She denies any fever chills or any nausea vomiting. Her white count was 10.6. D-dimer was noted to be 3.99. Chest x-ray was read as COPD minimal haziness right lung base nonspecific correlate for pneumonia. Compression fractures of she 9 and T10 as above. Chest CTA was read as the followingMultiple pulmonary emboli, predominantly in segmental level pulmonary arteries at the left upper lobe, right upper lobe, and right lower lobe. Stable pulmonary nodules/opacities, as detailed above, consistent with neoplastic disease and/or sequelae of treated disease. Please see recent prior CT dated 04/16/2023 for further details. Moderate emphysema. Stable T9 and T10 compression fractures. The patient was started on a heparin drip. The patient is being admitted to observation status on the date of service of 04/19/2023. Review of Systems Review of Systems: All systems reviewed & are unremarkable except as noted in HPI and below Constitutional: Constitutional: Reports as per HPI and Reports no additional constitutional complaints Eyes: Eyes: Reports as per HPI and Reports no additional eye complaints ENT: Reports system reviewed and no additional complaints, except as documented and Reports Normal hearing present Cardiovascular: Cardiovascular: Reports no additional cardiovascular complaints Respiratory: Respiratory: Reports no additional respiratory complaints and Reports no additional respiratory complaints Gastrointestinal: Gastrointestinal: Reports as per HPI and Reports no additional gastrointestinal complaints Musculoskeletal: Musculoskeletal: Reports no additional musculoskeletal complaints Integumentary/Breasts: Skin/Breast: Reports system reviewed and no additional complaints, except as docu and Reports as per HPI Neurologic: Reports system reviewed and no additional complaints, except as documented, Reports as per HPI and Reports Normal hearing present Psychiatric: Psychiatric: Reports no additional psychiatric complaints and Reports as per HPI Endocrine: Endocrine: Reports no additional endocrine complaints Hematologic/Lymphatic: Hematologic/Lymphatic: Reports no additional hematologic/lymphatic complaints Allergic/Immunologic: Allergic/Immunologic: Reports no additional allergic/immunologic complaints [facility] Past Medical History Medical History Coronary artery disease Dyslipidemia Essential (primary) hypertension GERD without esophagitis Right lower lobe pulmonary nodule Surgical History Surgical History (Updated 04/19/23 @ 16:09 by Leigh Ann Angulo NP) H/O breast biopsy Left breast H/O cardiac catheterization H/O colonoscopy with polypectomy H/O inguinal hernia repair History of bladder repair surgery (~2015) History of bladder surgery History of cataract extraction (~2017) History of coronary artery bypass graft 09/2017 History of hip surgery History of removal of pigmented skin lesion Hx of hysterectomy, total (~2015) Family History Family History Sibling Family history of lung cancer Patient's brother is Family history of malignant neoplasm Father Family history of coronary artery disease Patient's father is , Onset Age: 70 Family history of heart disease in male family member before age 55 Mother Family history of coronary artery disease Patient's moth
[2023-04-19 14:35] LABS: Troponin I < 0.012 ng/mL (0.000-0.034)
--- NOTE | 2023-04-19 15:54 | ADMGEN ---
This patient, John Delgado, was admitted to IMU Room 212-01 on 04/19/23 at 1530. Patient/family oriented to hospital policies and general routines including ID bracelet, bed and alarms, visiting hours, pain management, procedures, bathroom and other care routines, personal items, smoking policy, room service/diet, and visiting hours. Information on how to activate the Rapid Response Team has been discussed. Patient/Family are encouraged to report perceived risks to care and to ask questions if they do not understand what they are told or what they should do.
[2023-04-19 17:53] LABS: INR 1.1; Prothrombin Time 15.1 Seconds (11.1-14.7)
[2023-04-19 18:35] LABS: Partial Thromboplastin Time 104.9 SECONDS (22.3-36.8)
--- NOTE | 2023-04-19 19:25 | PDONCCN ---
HPI - Date of Consult Date/Time: 04/19/23 19:25 Requesting Physician: Alondra Kessler DO Primary Care Provider: Daniel Suarez MD - Consult Narrative Reason for consult: T9 T10 compression fracture, Pulmonary embolism Narrative: John Delgado is a 83 year old female with hx of recurrent early stage bilateral lung cancer, who is hospitalized 04/19/23 when she presented with chest pain and shortness of breath. A CT chest done 04/19/23 shows bilateral pulmonary embolism and T9/T10 compression fracture. Patient had CT chest done 04/16/23 (ordered by radiation oncologist Dr. Mobley) which did not show PE then but showed new T9 and T10 compression fractures which were not present 11/2022 scan. Patient has completed SBRT to RUL and LLL in 12/2022 and previously had undergone SBRT for RLL in 09/2021. Patient's Radiation therapy treatment hx is below per Dr. Leigh Ann Mobley (radiation oncologist) with last visit 01/18/23. Lung?Cancer, RIGHT Lower Lobe NSCLC, cT1b N0, PD-L1(+) Clinical?Stage IA2 (T1b N0 M0) Date of Diagnosis: 08/10/2021 Path?CT-Bx: scant material consistent with non-small cell lung cancer with a mix of squamous and glandular features PD-L1(+, 15%), ROS1(-), BRAF V600(-), EGFR(-), ALK(-), KRAS(-), RET(-) CT(07/27/21): 15 mm spiculated RLL nodule, no LAD PET/CT(08/25/21): 16 mm RLL nodule, FDG(+) SUV 7.1, no LAD Med Onc: Daniela Chemo:?none Rad Onc: Leandra Radiation: 09/22/2021 - 10/06/2021; 3 Arc VMAT SBRT RLL Lung SBRT 5500 cGy in 5 fractions Lung Nodules, RUL and LLL CT (12/21/21): 13 mm RLL nodule (decreased in size), stable [address] (03/24/22): 13 mm stable RUL nodule, 8 mm RUL nodule (5 mm prior), 5 mm LLL nodule (4 mm prior) PET (04/06/22): RLL nodule 14x8 mm SUV2.0 c/w treatment response (pre-SBRT 14x14 mm SUV7.1), 7 mm RUL nodule SUV1.3 (was 4 mm), 7 mm LLL nodule SUV 1.1 (was 4-5 mm) CT (07/13/22): RLL stable, 12 mm RUL nodule (increased), 9 mm LLL nodule (increased) CT (11/23/22): RLL minimally increased, 17x15 mm RUL spiculated nodule (increased), 10 mm spiculated LLL nodule (increased) PET 12/19/22): 21 mm RUL nodule SUVmax 13 (increased size and FDG uptake), 8 mm LLL nodule SUVmax 8.5 (described as stable size from 2 prior CTs), RLL airspace opacities SUVmax 2.3 c/w treated bronchogenic carcinoma; no adenopathy or DMs Med Onc: Daniela Chemo:?none Rad Onc: Leandra Radiation: 01/04 - 01/18/2023; 2 Arc VMAT SBRT RUL Lung SBRT 5250 cGy in 5 fractions LLL Lung SBRT 5250 cGy in 5 fractions Review of Systems - Review of Systems Patient is seen at bedside today. Her son, [id number] and grand daughter are present at bedside as well. Patient states that chest pain is getting better after start of heparin. She has baseline dyspnea from COPD. Denies hemoptysis. Denies f/c, night sweats. She is under stress as her was in ICU for prolonged time and now going to LT[facility]. She denies falls. Denies back pain. Able to ambulate without falls. Denies abdominal pain, n/v/d. no hematochezia or melena. no hematuria. - Neurologic Reports system reviewed and no additional complaints, except as documented, Reports hearing normal [facility] Medical History: Medical History (Last Reviewed 04/19/23 @ 18:38 by Charlotte Castro PA-C) Coronary artery disease Dyslipidemia Essential (primary) hypertension GERD without esophagitis Right lower lobe pulmonary nodule Surgical History: Surgical History (Last Reviewed 04/19/23 @ 18:38 by Charlotte Castro PA-C) H/O breast biopsy Left breast H/O cardiac catheterization H/O colonoscopy with polypectomy H/O inguinal hernia repair History of bladder repair surgery Onset Date: ~2015 History of bladder surgery History of cataract extraction Onset Date: ~2017 History of coronary artery bypass graft 09/2017 History of hip surgery History of removal of pigmented skin lesion Hx of hysterectomy, total Onset Date: ~2015 Family History: Family
[2023-04-19] MEDS: APIXABAN 5 MG TABLET 10 MG PO (21:00)
[2023-04-19] MEDS: PANTOPRAZOLE SODIUM IV 40 MG VIAL IV PUSH (21:00)
[2023-04-20] VITALS (11 sets, daily range): BP systolic 111–142; BP diastolic 49–84; PULSE 67–103; RESP 16–20; TEMP 36.1–37.8; O2SAT 94–99; BMI 16.5
[2023-04-20 05:39] LABS: Basophils Absolute Auto 0.1 K/mm3 (0.0-0.1); Basophils Percent Auto 1.1 % (0.2-1.2); Eosinophils Absolute Auto 0.2 K/mm3 (0-0.3); Hematocrit 32.9 % (37.0-47.0); Hemoglobin 10.6 g/dL (12.0-15.0); Immature Granulocyte Absolute 0.05 K/mm3 (0.00-0.031); Immature Granulocyte Percent A 0.6 % (0-0.5); Lymphocytes Absolute Auto 1.11 K/mm3 (0.9-3.2); Lymphocytes Percent Auto 13.8 % (18.3-44.2); Mean Corpuscular HGB Conc 32.2 g/dl (32-36); Mean Corpuscular Hemoglobin 29.4 pg (26-34); Mean Corpuscular Volume 91.4 fl (80-100); Mean Platelet Volume 9.3 fl (7.4-10.4); Monocytes Absolute Auto 0.9 K/mm3 (0.1-0.6); Monocytes Percent Auto 10.7 % (2.6-8.5); Neutrophils Absolute Auto 5.8 K/mm3 (1.3-6.7); Neutrophils Percent Auto 71.8 % (45.5-73.1); Platelet Count Result 186 k/mm3 (150-375); Red Cell Distribution Width 14.1 % (11.5-14.5); White Blood Count 8.1 K/mm3 (4.5-10.0)
[2023-04-20 05:51] LABS: Lactic Acid Reflex 0.7 mmol/L (0.7-2.0)
[2023-04-20 05:56] LABS: Alanine Aminotransferase 10 U/L (6-35); Albumin Level 3.2 g/dL (3.5-5.1); Alkaline Phosphatase 79 U/L (38-126); Anion Gap 9 mmol/L (8-16); Aspartate Amino Transferase 22 U/L (14-36); Bilirubin,Total 0.7 mg/dL (0.2-1.3); Blood Urea Nitrogen 12 mg/dL (7-17); Calcium 8.2 mg/dL (8.4-10.2); Carbon Dioxide 25 mmol/L (22-30); Chloride 99 mmol/L (98-107); Estimated CRCL calculation 27 ml/min; Estimated Glomerular Filt Rate 60; Glucose 112 mg/dL (65-110); Lipase 71 U/L (23-300); Magnesium 1.9 mg/dL (1.6-2.3); Potassium 3.8 mmol/L (3.4-5.0); Sodium 133 mmol/L (137-145)
--- NOTE | 2023-04-20 06:00 | ECHO_ITS ---
Patient Info Name: John Delgado Age: 83 years : 1940 Gender: Female Ht: 63 in Wt: 93 lbs BSA: 1.36 m2 HR: 83 bpm BP: 135 / 59 mmHg Heart Rhythm: Sinus Rhythm Technical Quality: Fair Exam Date: 04/20/2023 9:10 AM Exam Location: [facility] Pulmonary Patient Status: Outpatient Admit Date: 04/19/2023 Staff Ordering Physician: Charlotte Castro PA-C Data Entry Email Processor: Matilda Delcid RDCS Attending Provider: Alondra Kessler DO Referring Physician: Matthew DEWITT; Exam Type: CA echo doppler color flow Study Info Indications - multiple mike PEs, eval for r heart strain Complete two-dimensional, color flow and Doppler transthoracic echocardiogram is performed. Summary 1. Complete two-dimensional, color flow and Doppler transthoracic echocardiogram is performed. 2. Normal left ventricular size thickness and systolic function. 3. Grade 1 diastolic noncompliance. 4. No right atrium or right ventricular enlargement. 5. No stigmata of pulmonary hypertension. Left Ventricle Left ventricular chamber dimension is normal. Left ventricular systolic function is normal, estimated at 50-55%. The left ventricular diastolic function is grade I diastolic dysfunction. Right Ventricle Right ventricular chamber dimension is normal. Left Atria Left atrial chamber dimension is mildly enlarged. Right Atria Right atrial chamber dimension is normal. Aortic Valve The aortic valve is trileaflet. There is mild aortic valve sclerosis. Pulmonic Valve The pulmonic valve is normal. Mitral Valve The mitral valve has normal leaflets. Tricuspid Valve The tricuspid valve leaflets are normal. There is trace tricuspid valve regurgitation. Pericardium/Pleural The pericardium appears normal. Aorta The aortic root size at the sinus of Valsalva is normal. Left Ventricular Outflow Tract Name Value Normal LVOT 2D LVOT Diameter 2.0 cm LVOT Doppler LVOT Peak Gradient 3 mmHg LVOT Mean Gradient 2 mmHg LVOT VTI 16 cm LVOT VTI/AV VTI Ratio 0.8 LVOT Stroke Volume 50 ml LVOT CO 4.2 l/min LVOT CI 3.1 l/min/m2 Pulmonic Valve Name Value Normal RVOT Doppler RVOT Peak Gradient 2 mmHg PV Doppler PV Peak Gradient 4 mmHg Mitral Valve Name Value Normal MV Doppler MV Decel [place] 572 cm/s2 MV PHT 34 ms MV Area (PHT)
[2023-04-20] MEDS: APIXABAN 5 MG TABLET 10 MG PO ×2 (09:57→20:21)
[2023-04-20] MEDS: SIMVASTATIN 10 MG TABLET PO (09:57)
[2023-04-20] MEDS: PANTOPRAZOLE SODIUM IV 40 MG VIAL IV PUSH ×2 (09:57→20:20)
--- NOTE | 2023-04-20 11:44 | PM.IMPN ---
Progress Note: A&P Assessment and Plan (1) Pulmonary emboli: Qualifiers: Acute cor pulmonale presence: without acute cor pulmonale Chronicity: acute Pulmonary embolism type: unspecified Qualified Code(s): I26.99 - Other pulmonary embolism without acute cor pulmonale Code(s): I26.99 - Other pulmonary embolism without acute cor pulmonale Status: Acute Assessment and Plan: Oral anticoagulation. (2) Malignant neoplasm of lower lobe, right bronchus or lung: Code(s): C34.31 - Malignant neoplasm of lower lobe, right bronchus or lung Status: Acute Assessment and Plan: Dr. Suarez has been consulted, continue with analgesics. Continue with inhalers. The patient has been receiving radiation treatment. (3) Hyperlipidemia: Qualifiers: Hyperlipidemia type: unspecified Qualified Code(s): E78.5 - Hyperlipidemia, unspecified Code(s): E78.5 - Hyperlipidemia, unspecified Status: Acute Assessment and Plan: Continue simvastatin. (4) GERD without esophagitis: Code(s): K21.9 - Gastro-esophageal reflux disease without esophagitis Status: Acute Assessment and Plan: IV Protonix (5) Coronary artery disease: Qualifiers: Coronary Disease-Associated Artery/Lesion type: [place] artery [place] vs. transplanted heart: [place] heart Associated angina: without angina Qualified Code(s): I25.10 - Atherosclerotic heart disease of [place] coronary artery without angina pectoris Code(s): I25.10 - Atherosclerotic heart disease of [place] coronary artery without angina pectoris Status: Acute Assessment and Plan: History of coronary artery bypass graft September of 2017 (6) Primary hypertension: Code(s): I10 - Essential (primary) hypertension Status: Acute Assessment and Plan: Continue with metoprolol home dose as prescribed. Subjective Date/time seen: 04/20/23 11:44 Interval history: Feeling okay. Exam Const: General: cooperative, healthy appearing, comfortable, no acute distress, well developed, alert, awake, Physically active, average body habitus, well nourished, thin and underweight Nutritional Appearance: average body habitus, well nourished, thin and underweight Orientation/consciousness: oriented to person, oriented to place, oriented to time and patient oriented x3 HENMT: Head: normal to inspection, No palpable skull fracture present, normocephalic and atraumatic Ears: hearing grossly normal bilaterally and external ears normal Face/Nose/Sinus: Normal external nose present and Normal nares present Eyes: General: appearance normal, both eyes and all related structures Alignment and Position: alignment normal Periorbital: periorbital findings normal Eyelids: eyelids normal Pupils: Equal, round and reactive pupils present EOM: EOMs intact bilaterally Neck: Neck: normal visual inspection, full ROM, no lymphadenopathy, trachea midline and supple Chest: Chest palpation & inspection: normal inspection of the chest Resp: Effort & Inspection: normal respiratory effort Auscultation: diminished lung sounds Cardio: Palpation: normal PMI Rate: regular rate Rhythm: regular rhythm Heart sounds: S1 normal heart sound present and S2 normal heart sound present Peripheral pulses: Peripheral pulses 2+ throughout GI: Inspection: normal to inspection Auscultation: normal bowel sounds Rectal Exam: deferred Back/Spine/Pelvis: Cervical Spine: cervical ROM normal Skin: General skin exam: normal color Lesions: no lesions Rashes: no rashes Trauma: no lacerations or abrasions Wounds: no wounds Hair: normal Nails: normal Neuro: General: oriented to person, oriented to place, oriented to time and patient oriented x3 Cranial nerves: Yes Equal, round and reactive pupils present and Yes Normal hearing present Cognition (Neuro): normal cognition Speech: normal speech Gait exam (Neuro): Normal gait present Sen
[2023-04-20] MEDS: HYDROcodone/acetaminophen (*CRX) 5-325 MG TABLET 1 TAB PO (19:02)
[2023-04-21] VITALS (7 sets, daily range): BP systolic 104–131; BP diastolic 48–69; PULSE 64–94; RESP 18–20; TEMP 36.5–36.6; O2SAT 95–98
[2023-04-21] MEDS: SIMVASTATIN 10 MG TABLET PO (09:56)
[2023-04-21] MEDS: APIXABAN 5 MG TABLET 10 MG PO (09:56)
[2023-04-21] MEDS: PANTOPRAZOLE SODIUM IV 40 MG VIAL IV PUSH (09:56)
--- NOTE | 2023-04-21 11:34 | PM.DS ---
DS: Admitting Diagnosis Discharge Date April 21, 2023 Admitting Diagnosis Pulmonary embolism DS: Discharge Diagnosis Discharge Diagnosis (1) Pulmonary emboli: Qualifiers: Acute cor pulmonale presence: without acute cor pulmonale Chronicity: acute Pulmonary embolism type: unspecified Qualified Code(s): I26.99 - Other pulmonary embolism without acute cor pulmonale Code(s): I26.99 - Other pulmonary embolism without acute cor pulmonale Status: Acute Assessment and Plan: Oral anticoagulation. (2) Malignant neoplasm of lower lobe, right bronchus or lung: Code(s): C34.31 - Malignant neoplasm of lower lobe, right bronchus or lung Status: Acute Assessment and Plan: Dr. Suarez has been consulted, continue with analgesics. Continue with inhalers. The patient has been receiving radiation treatment. (3) Hyperlipidemia: Qualifiers: Hyperlipidemia type: unspecified Qualified Code(s): E78.5 - Hyperlipidemia, unspecified Code(s): E78.5 - Hyperlipidemia, unspecified Status: Acute Assessment and Plan: Continue simvastatin. (4) GERD without esophagitis: Code(s): K21.9 - Gastro-esophageal reflux disease without esophagitis Status: Acute Assessment and Plan: IV Protonix (5) Coronary artery disease: Qualifiers: Coronary Disease-Associated Artery/Lesion type: [place] artery [place] vs. transplanted heart: [place] heart Associated angina: without angina Qualified Code(s): I25.10 - Atherosclerotic heart disease of [place] coronary artery without angina pectoris Code(s): I25.10 - Atherosclerotic heart disease of [place] coronary artery without angina pectoris Status: Acute Assessment and Plan: History of coronary artery bypass graft September of 2017 (6) Primary hypertension: Code(s): I10 - Essential (primary) hypertension Status: Acute Assessment and Plan: Continue with metoprolol home dose as prescribed. DS: Summary Hospital Course Hospital Course: Patient is a 3-year-old lady who came in with history of malignancy. She was having some mild shortness of breath and was found have pulmonary embolism. She was recently started on Lovenox and switched to oral anticoagulation. She is doing well she is satting 95% on room air she is not having any complaints of shortness of breath and feels good. She can be discharged. Follow up with her oncologist Time Spent with Patient Time attestation: Total time spent providing and/or coordinating discharge services: Exam Const: General: cooperative, healthy appearing, comfortable, no acute distress, well developed, alert, awake, Physically active, average body habitus, well nourished, thin and underweight Nutritional Appearance: average body habitus, well nourished, thin and underweight Orientation/consciousness: oriented to person, oriented to place, oriented to time and patient oriented x3 HENMT: Head: normal to inspection, No palpable skull fracture present, normocephalic and atraumatic Ears: hearing grossly normal bilaterally and external ears normal Face/Nose/Sinus: Normal external nose present and Normal nares present Eyes: General: appearance normal, both eyes and all related structures Alignment and Position: alignment normal Periorbital: periorbital findings normal Eyelids: eyelids normal Pupils: Equal, round and reactive pupils present EOM: EOMs intact bilaterally Neck: Neck: normal visual inspection, full ROM, no lymphadenopathy, trachea midline and supple Chest: Chest palpation & inspection: normal inspection of the chest Resp: Effort & Inspection: normal respiratory effort Auscultation: diminished lung sounds Cardio: Palpation: normal PMI Rate: regular rate Rhythm: regular rhythm Heart sounds: S1 normal heart sound present and S2 normal heart sound present Peripheral pulses: Peripheral pulses 2+ throughout GI: Inspection: normal t
--- NOTE | 2023-04-21 13:28 | PDONCCN ---
HPI - Date of Consult Date/Time: 04/21/23 13:28 Requesting Physician: Alondra Kessler DO Primary Care Provider: Daniel Suarez MD - Consult Narrative Reason for consult: T9 T10 compression fracture, Pulmonary embolism Narrative: John Delgado is a 83 year old female John Delgado is a 83 year old female with hx of recurrent early stage bilateral lung cancer, who is hospitalized 04/19/23 when she presented with chest pain and shortness of breath. A CT chest done 04/19/23 shows bilateral pulmonary embolism and T9/T10 compression fracture. Patient had CT chest done 04/16/23 (ordered by radiation oncologist Dr. Mobley) which did not show PE then but showed new T9 and T10 compression fractures which were not present 11/2022 scan. Patient has completed SBRT to RUL and LLL in 12/2022 and previously had undergone SBRT for RLL in 09/2021. To further explore the T9 and Patient underwent MRI of the thoracic spine on 04/20/23 which shows mild mid thoracic kyphosis with subacute compression fractures at T9 and T10. There was no associated mass. Patient's Radiation therapy treatment hx is below per Dr. Leigh Ann Mobley (radiation oncologist) with last visit 01/18/23. Lung?Cancer, RIGHT Lower Lobe NSCLC, cT1b N0, PD-L1(+) Clinical?Stage IA2 (T1b N0 M0) Date of Diagnosis: 08/10/2021 [address]?CT-Bx: scant material consistent with non-small cell lung cancer with a mix of squamous and glandular features PD-L1(+, 15%), ROS1(-), BRAF V600(-), EGFR(-), ALK(-), KRAS(-), RET(-) CT(07/27/21): 15 mm spiculated RLL nodule, no LAD PET/CT(08/25/21): 16 mm RLL nodule, FDG(+) SUV 7.1, no LAD Med Onc: Daniela Chemo:?none Rad Onc: Leandra Radiation: 09/22/2021 - 10/06/2021; 3 Arc VMAT SBRT RLL Lung SBRT 5500 cGy in 5 fractions Lung Nodules, RUL and LLL CT (12/21/21): 13 mm RLL nodule (decreased in size), stable [address] (03/24/22): 13 mm stable RUL nodule, 8 mm RUL nodule (5 mm prior), 5 mm LLL nodule (4 mm prior) PET (04/06/22): RLL nodule 14x8 mm SUV2.0 c/w treatment response (pre-SBRT 14x14 mm SUV7.1), 7 mm RUL nodule SUV1.3 (was 4 mm), 7 mm LLL nodule SUV 1.1 (was 4-5 mm) CT (07/13/22): RLL stable, 12 mm RUL nodule (increased), 9 mm LLL nodule (increased) CT (11/23/22): RLL minimally increased, 17x15 mm RUL spiculated nodule (increased), 10 mm spiculated LLL nodule (increased) PET 12/19/22): 21 mm RUL nodule SUVmax 13 (increased size and FDG uptake), 8 mm LLL nodule SUVmax 8.5 (described as stable size from 2 prior CTs), RLL airspace opacities SUVmax 2.3 c/w treated bronchogenic carcinoma; no adenopathy or DMs Med Onc: Daniela Chemo:?none Rad Onc: Leandra Radiation: 01/04 - 01/18/2023; 2 Arc VMAT SBRT RUL Lung SBRT 5250 cGy in 5 fractions LLL Lung SBRT 5250 cGy in 5 fractions Review of Systems - Review of Systems Patient is resting comfortably on bed. She denies any back pain. ambulating well and denies any falls. She lives alone in a house with her dog. Her is in hospital for months. She denies dizziness, falls, TIA or CVA. Denies f/c, night sweats or weight loss. Denies chest pain or dyspnea. Denies hematochezia or melena. no hematuria. - Neurologic Reports system reviewed and no additional complaints, except as documented, Reports hearing normal [facility] Medical History: Medical History (Last Reviewed 04/19/23 @ 18:38 by Charlotte Castro PA-C) Coronary artery disease Dyslipidemia Essential (primary) hypertension GERD without esophagitis Right lower lobe pulmonary nodule Surgical History: Surgical History (Last Reviewed 04/19/23 @ 18:38 by Charlotte Castro PA-C) H/O breast biopsy Left breast H/O cardiac catheterization H/O colonoscopy with polypectomy H/O inguinal hernia repair History of bladder repair surgery Onset Date: ~2015 History of bladder surgery History of cataract extraction Onset Date: ~2017 History of coronary artery bypass graft 09/2017 History of hip surgery History of removal
== END 2023-04-21 12:52 | disposition home or self-care (01) | DRG 176 ==
LOC: ANHED 12:14 → ANHIMU 15:00
PROVIDERS: Emergency Medicine; Nurse Practitioner; Admitting Provider Student in an Organized Health Care Education/Training Program; Emergency Provider Physician Assistant; PCP Internal Medicine Hematology & Oncology; Visit Provider Chiropractor
DX: I26.99 Other pulmonary embolism without acute cor pulmonale (principal); C34.31 Malignant neoplasm of lower lobe, right bronchus or lung; M80.88XA Other osteoporosis with current pathological fracture, vertebra(e), initial encounter for fracture; Z68.1 Body mass index [BMI] 19.9 or less, adult; R63.6 Underweight; E78.5 Hyperlipidemia, unspecified; K21.9 Gastro-esophageal reflux disease without esophagitis; I25.10 Atherosclerotic heart disease of native coronary artery without angina pectoris; I10 Essential (primary) hypertension; J43.9 Emphysema, unspecified; I25.2 Old myocardial infarction; Z95.1 Presence of aortocoronary bypass graft; Z90.710 Acquired absence of both cervix and uterus; Z87.891 Personal history of nicotine dependence; Z79.82 Long term (current) use of aspirin
CPT/HCPCS: 36415; 71046; 71275; 72157; 80053; 82728; 83605; 83690; 83735; 84443; 84484; 85025; 85380; 85610; 85730; 93005; 93306; 93970; 96365; 96366; 96376; 99285; A9270; A9577; C9113; G0378; J1644; Q9967

== ENCOUNTER 2023-04-24 15:24 | Emergency (ER) | payer MEDICARE, SELFPAY ==
--- NOTE | ~2023-04-24 | CT_ITS ---
EXAMINATION: CT brain wo con DATE: 04/24/2023 16:17 INDICATION: headache . TECHNIQUE: Computed tomography (CT) of the head was performed without intravenous contrast. The mA wa s adjusted according to patient size. Iterative reconstruction technique was employed. The dose-lengt h product was 605.33 mGy-cm. COMPARISON: MR brain 01/24/2023. FINDINGS: No acute intracranial hemorrhage or extra-axial fluid collection. No hydrocephalus, mass, or herniation. No acute ischemic infarct. Unremarkable dural venous sinus attenuation. No acute osseous abnormality. The aerated spaces are clear. Moderate atrophy and chronic white matter change. Atherosclerotic intracranial calcification. Tiny fo anderson old left basal ganglia lacunar infarct. Empty sella. Bilateral lens replacements. IMPRESSION: No acute intracranial process. Reviewed, dictated and finalized at location K.
[2023-04-24 15:31] VITALS: BP 142/48; PULSE 80; RESP 20; TEMP 36.9; O2SAT 97
[2023-04-24 15:58] LABS: Basophils Absolute Auto 0.1 K/mm3 (0.0-0.1); Basophils Percent Auto 1.3 % (0.2-1.2); Eosinophils Percent Auto 0.6 % (0-4.4); Hematocrit 35.1 % (37.0-47.0); Hemoglobin 11.2 g/dL (12.0-15.0); Immature Granulocyte Absolute 0.04 K/mm3 (0.00-0.031); Immature Granulocyte Percent A 0.6 % (0-0.5); Lymphocytes Absolute Auto 0.53 K/mm3 (0.9-3.2); Lymphocytes Percent Auto 8.5 % (18.3-44.2); Mean Corpuscular HGB Conc 31.9 g/dl (32-36); Mean Corpuscular Hemoglobin 29.5 pg (26-34); Mean Corpuscular Volume 92.4 fl (80-100); Mean Platelet Volume 8.9 fl (7.4-10.4); Monocytes Absolute Auto 0.6 K/mm3 (0.1-0.6); Neutrophils Absolute Auto 4.9 K/mm3 (1.3-6.7); Platelet Count Result 254 k/mm3 (150-375); Red Cell Distribution Width 14.1 % (11.5-14.5); White Blood Count 6.2 K/mm3 (4.5-10.0)
[2023-04-24 16:08] LABS: Alanine Aminotransferase 20 U/L (6-35); Albumin Level 3.9 g/dL (3.5-5.1); Alkaline Phosphatase 86 U/L (38-126); Anion Gap 7 mmol/L (8-16); Aspartate Amino Transferase 22 U/L (14-36); Bilirubin,Total 0.5 mg/dL (0.2-1.3); Blood Urea Nitrogen 15 mg/dL (7-17); Calcium 8.8 mg/dL (8.4-10.2); Carbon Dioxide 26 mmol/L (22-30); Chloride 97 mmol/L (98-107); Estimated CRCL calculation 29 ml/min; Estimated Glomerular Filt Rate 60; Glucose 110 mg/dL (65-110); Sodium 130 mmol/L (137-145)
[2023-04-24 16:09] LABS: INR 1.4
[2023-04-24 16:10] LABS: Partial Thromboplastin Time 33.4 SECONDS (22.3-36.8)
[2023-04-24] MEDS: ACETAMINOPHEN 500 MG TABLET 1000 MG PO (16:19)
[2023-04-24] MEDS: ONDANSETRON HCL ODT 4 MG TABLET PO (16:19)
--- NOTE | 2023-04-24 17:02 | ED.GENADULT ---
HPI - General Adult General Chief complaint: Headache Stated complaint: acting funny per family Time Seen by Provider: 04/24/23 15:39 History of Present Illness HPI narrative: Patient is an 83-year-old female who presents ER with her family for headache. Ongoing since this morning. Patient has had decreased oral intake. She does struggle with dementia and desire to eat according to the son. She has recently been treated for pulmonary embolism and has also received radiation for pneumonia. She has had no recent falls. No fevers or chills or sweats. She did have some nausea and vomiting earlier today. Patient has no complaints at this time. Related Data Home Medications Medication Instructions Recorded Confirmed metoprolol succinate 25 mg 25 mg PO QAM 08/15/19 04/19/23 tablet,extended release 24 hr simvastatin 10 mg tablet 10 mg PO QAM 08/15/19 04/19/23 omeprazole 20 mg capsule,delayed 20 mg QAM 08/03/21 04/19/23 release albuterol sulfate 90 mcg/actuation 2 puff inhalation Q12H PRN 04/19/23 04/19/23 aerosol inhaler shortness of breath or wheezing Allergies Allergy/AdvReac Type Severity Reaction Status Date / Time iodine Allergy Unknown Vomiting Verified 04/24/23 15:25 shellfish derived Allergy Unknown Nausea and Verified 04/24/23 15:25 Vomiting shrimp Allergy Unknown Nausea and Verified 04/24/23 15:25 Vomiting Review of Systems Review of Systems: ROS unobtainable: Yes other (Dementia) [facility] Past Medical History Medical History Coronary artery disease Dyslipidemia Essential (primary) hypertension GERD without esophagitis Right lower lobe pulmonary nodule Surgical History Surgical History H/O breast biopsy Left breast H/O cardiac catheterization H/O colonoscopy with polypectomy H/O inguinal hernia repair History of bladder repair surgery (~2015) History of bladder surgery History of cataract extraction (~2017) History of coronary artery bypass graft 09/2017 History of hip surgery History of removal of pigmented skin lesion Hx of hysterectomy, total (~2015) Family History Family History Sibling Family history of lung cancer Patient's brother is Family history of malignant neoplasm Father Family history of coronary artery disease Patient's father is , Onset Age: 70 Family history of heart disease in male family member before age 55 Mother Family history of coronary artery disease Patient's mother is , Onset Age: 70 Social History Social History Social History: And she is and had 3 children and one passed. She is retired from [employer]. She is a former smoker. Code status full code Smoking packs per day: 1 Smoking cigarettes per day: 20.0 Years smoked: 60 Smoking pack-years: 60.00 Smoking status: Former smoker Tobacco type: cigarettes Second hand tobacco smoke exposure: No Smoking end date: 09/24/17 Additional smoking assessment comments: WAS CLOSET SMOKER PK EVERY 3-4 DAYS, 30+YRS OFF/ON - LAST END MAY 2021 Alcohol intake: never Substance use: never Substance use type: does not use Lack of Transportation: No Lack of Food: Never True Current Housing: I Have Housing Concerned About Future Housing: No Difficulty Paying Gas/Electric Bills: No Difficulty Paying for Meds: No Currently Unemployed: No Education: Grade School Difficulty w/ Childcare or Family Care: No Living arrangements: with family Occupation/Education: retired Gender identity (if verbalized by the patient): Female Sexual Orientation (if Verbalized by the Patient): Straight or Heterosexual Spiritual care concerns: No Exam Narrative: GENERAL: W
[2023-04-24 17:42] VITALS: BP 122/57; PULSE 80; RESP 20; O2SAT 96
== END 2023-04-24 17:45 | disposition home or self-care (01) ==
PROVIDERS: Emergency Provider Emergency Medicine; PCP Family Medicine
DX: R51.9 Headache, unspecified (principal); I25.10 Atherosclerotic heart disease of native coronary artery without angina pectoris; E78.5 Hyperlipidemia, unspecified; I10 Essential (primary) hypertension; Z87.891 Personal history of nicotine dependence; Z79.899 Other long term (current) drug therapy; Z86.711 Personal history of pulmonary embolism
CPT/HCPCS: 36415; 70450; 80053; 85025; 85610; 85730; 99284; A9270

== ENCOUNTER 2023-06-25 07:29 | Outpatient (CLI) | payer MEDICARE, SELFPAY ==
--- NOTE | ~2023-06-25 | US_ITS ---
EXAMINATION: US venous doppler [facility] DATE: 06/25/2023 08:19 INDICATION: Acute deep venous thrombosis of the left peroneal vein TECHNIQUE: Grayscale ultrasound images without and with compression and Doppler ultrasound images of the left lower extremity veins were obtained. COMPARISON: 04/19/2023 FINDINGS: The visualized portions of left common femoral vein, profunda (deep) femoral vein, femoral vein, popl iteal vein, peroneal veins, posterior tibial veins, gastrocnemius vein and greater saphenous vein out flow are patent. The more distal left greater saphenous vein has reportedly been harvested for prior coronary artery bypass grafting. IMPRESSION: 1. No deep venous thrombosis in the left lower limb. Reviewed, dictated and finalized at location A.
--- NOTE | ~2023-06-25 | CT_ITS ---
EXAMINATION: CT diagnostic chest w con DATE: 06/25/2023 08:30 INDICATION: MALIGNANTN NEOPLASM OF LOWER LOBE OF RIGHT LUNG TECHNIQUE: Computed tomography (CT) of the chest was performed with 75 mL Omnipaque-350 intravenous c ontrast. Additional 3D reconstructions utilizing coronal maximum intensity projection (MIP) were perf ormed. Automated exposure control and iterative reconstruction technique were employed. The dose-eric th product was 121.11 mGy-cm. COMPARISON: 04/19/2023 and 11/23/2022 FINDINGS: Moderate emphysema. No interval change since 04/19/2023 in a 14 x 10 mm spiculated nodule in the anter ior segment of the right upper lobe which is significantly decreased in size when [facility] at which time the nodule measured 1.9 x 1.6 cm consistent with response to rep orted interval radiation treatment. Also without interval change since 04/19/2023 is a 9 x 7 mm focus of spiculation in the left lower lobe which appeared more solidly nodular on the study from 11/23/2022 also consistent with interval response to treatment. There is been some interval coalescence of a hong or combination of bandlike consolidation and adjacent groundglass opacities in the anterobasilar segm ent of the right lower lobe now appearing as bandlike consolidation with similar configuration but wi th resolution of a prior adjacent groundglass opacities. This likely represents evolving chronic pulm onary infarct given the persistent thrombosis of the anterobasilar segmental right lower lobar pulmon jose artery. Additional prior pulmonary emboli in the right lower and bilateral upper lobes have resol malik. There are few scattered bilateral small calcified nodules throughout both lungs which along with calcified mediastinal and bilateral hilar lymph nodes are consistent with old granulomatous disease. No new or enlarging pulmonary nodules. No pulmonary edema or pleural effusion. Heart size is normal. Atherosclerotic coronary artery calcifications unchanged prior median sternotomy and coronary artery bypass grafting. There is also a left atrial appendage occlusion clip. No pericardial effusion. Scat tered atherosclerotic plaque along the normal caliber thoracic aorta with no dissection. No pathologi jany enlarged thoracic lymphadenopathy. Small sliding-type hiatal hernia. Cysts measuring up to 1.7 cm in the visualized left kidney. Unchanged chronic T9 and T10 compression fractures. IMPRESSION: 1. Moderate emphysema with no interval change in a couple spiculated nodules in the right upper and l eft lower lobes consistent with likely treated metastatic disease. 2. 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 2. Small sliding-type hiatal hernia. Reviewed, dictated and finalized at location A. IMPRESSION: 1. Moderate emphysema with no interval change in a couple spiculated nodules in the right upper and left lower lobes consistent with likely treated metastatic disease. 2. 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 2. Small sliding-type hiatal hernia.
[2023-06-25 08:25] LABS: Estimated Glomerular Filt Rate 53
== END 2023-06-25 07:30 | disposition home or self-care (01) ==
PROVIDERS: PCP Family Medicine; Visit Provider Internal Medicine Hematology & Oncology
DX: I82.452 Acute embolism and thrombosis of left peroneal vein (principal); C34.31 Malignant neoplasm of lower lobe, right bronchus or lung; J43.9 Emphysema, unspecified; K44.9 Diaphragmatic hernia without obstruction or gangrene
CPT/HCPCS: 71260; 93971; Q9967

== ENCOUNTER 2023-10-01 07:25 | Outpatient (CLI) | payer MEDICARE, SELFPAY ==
--- NOTE | ~2023-10-01 | CT_ITS ---
Clinical Indication: Lung cancer CT Scan of the Chest with Contrast: Technique: Contiguous sections were acquired throughout the chest after intravenous administration of 75 cc of Omnipaque 350. Dose reduction technique was used on this scan by utilizing automated exposu re control and iterative reconstruction technique. The dose-length product (DLP) was 181.74 mGy-cm. COMPARISON: 06/25/2023 Findings: There is no evidence of any significant mediastinal, hilar or axillary lymphadenopathy. Small calcifi ed lymph nodes are present. There is no filling defect in the pulmonary arterial tree to suggest pulm onary embolus. There is no evidence of aortic dissection or aneurysm. There are atherosclerotic calci fications of the aorta. There is no evidence of pleural or pericardial effusion. There is mild to moderate emphysema. Stable 1.2 cm spiculated nodule in the right upper lobe (axial i mage 48). There is stable irregular consolidative change in the anterior aspect of the right lower lo be (axial images 74-82). Scattered calcified granulomas are present. Images through the upper abdomen reveal focal mild aneurysmal dilatation of the infrarenal abdominal aorta to 3 cm. Chronic T9 and T10 compression fractures are present. Impression: Stable 1.2 cm spiculated right upper lobe nodule. Stable irregular consolidative change in the anterobasal right lower lobe. Chronic T9 and T10 compression fractures. Evidence of perirenal disc disease. Reviewed, dictated and finalized at [facility]. 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 Stable irregular consolidative change in the anterobasal right lower lobe. Chronic T9 and T10 compression fractures. Evidence of perirenal disc disease.
[2023-10-01 07:48] LABS: Estimated Glomerular Filt Rate 53
== END 2023-10-01 07:26 | disposition home or self-care (01) ==
PROVIDERS: PCP Family Medicine; Visit Provider Internal Medicine Hematology & Oncology
DX: C34.31 Malignant neoplasm of lower lobe, right bronchus or lung (principal); M48.54XA Collapsed vertebra, not elsewhere classified, thoracic region, initial encounter for fracture
CPT/HCPCS: 71260; Q9967

== ENCOUNTER 2023-10-04 11:04 | Outpatient (CLI) | payer MEDICARE, SELFPAY ==
--- NOTE | ~2023-10-04 | XR_ITS ---
XR hip RT 2V w AP pelvis DATE: 10/04/2023 11:19 INDICATION: Right hip pain TECHNIQUE: AP pelvis. AP and lateral views of right hip COMPARISON: 08/31/2021 right hip FINDINGS: Bipolar right hip prosthesis is again noted, in satisfactory position. There is osteopenia. No fracture, dislocation, periosteal reaction or bone destruction is detected. Normal alignment at the pubic symphysis and right sacroiliac joint. Prominent common and external iliac, femoral and femoral artery catheter IMPRESSION: Bipolar right hip prosthesis Osteopenia No fracture or dislocation Reviewed, dictated and finalized at location L. SERVICE SALES REPRESENTATIVES
== END 2023-10-04 11:05 | disposition home or self-care (01) ==
PROVIDERS: PCP Family Medicine; Visit Provider Physician Assistant
DX: M85.80 Other specified disorders of bone density and structure, unspecified site (principal); Z96.641 Presence of right artificial hip joint
CPT/HCPCS: 73502

== ENCOUNTER 2023-10-17 09:33 | Outpatient (CLI) | payer MEDICARE, SELFPAY ==
[2023-10-17 09:50] LABS: Basophils Absolute Auto 0.1 K/mm3 (0.0-0.1); Basophils Percent Auto 1.5 % (0.2-1.2); Eosinophils Absolute Auto 0.3 K/mm3 (0-0.3); Eosinophils Percent Auto 3.9 % (0-4.4); Hematocrit 36.7 % (37.0-47.0); Hemoglobin 11.9 g/dL (12.0-15.0); Immature Granulocyte Absolute 0.03 K/mm3 (0.00-0.031); Immature Granulocyte Percent A 0.4 % (0-0.5); Lymphocytes Absolute Auto 1.54 K/mm3 (0.9-3.2); Lymphocytes Percent Auto 21.5 % (18.3-44.2); Mean Corpuscular HGB Conc 32.4 g/dl (32-36); Mean Corpuscular Hemoglobin 30.6 pg (26-34); Mean Corpuscular Volume 94.3 fl (80-100); Monocytes Absolute Auto 0.6 K/mm3 (0.1-0.6); Monocytes Percent Auto 7.8 % (2.6-8.5); Neutrophils Absolute Auto 4.6 K/mm3 (1.3-6.7); Neutrophils Percent Auto 64.9 % (45.5-73.1); Platelet Count Result 224 k/mm3 (150-375); Red Blood Count 3.89 M/mm3 (4.2-5.4); Red Cell Distribution Width 13.8 % (11.5-14.5); White Blood Count 7.2 K/mm3 (4.5-10.0)
[2023-10-17 09:55] LABS: Blood Urea Nitrogen 20 mg/dL (8-26); Carbon Dioxide 27 mmol/L (22-30); Chloride 101 mmol/L (98-109); Estimated Glomerular Filt Rate 53; Glucose 99 mg/dL (70-105); Ionized Calcium (POC) 1.16 mmol/L (1.11-1.31); Sodium 139 mmol/L (138-146)
[2023-10-17 10:50] LABS: Alanine Aminotransferase 11 U/L (6-35); Albumin Level 4.1 g/dL (3.5-5.1); Alkaline Phosphatase 73 U/L (38-126); Anion Gap 7 mmol/L (8-16); Aspartate Amino Transferase 21 U/L (14-36); Bilirubin,Total 0.7 mg/dL (0.2-1.3); Blood Urea Nitrogen 21 mg/dL (7-17); Carbon Dioxide 28 mmol/L (22-30); Chloride 102 mmol/L (98-107); Estimated Glomerular Filt Rate 53; Glucose 102 mg/dL (65-110); Sodium 137 mmol/L (137-145)
== END 2023-10-17 09:34 | disposition home or self-care (01) ==
LOC: ANHLAB 09:37
PROVIDERS: PCP Family Medicine; Visit Provider Internal Medicine Hematology & Oncology
DX: C34.31 Malignant neoplasm of lower lobe, right bronchus or lung (principal)
CPT/HCPCS: 36415; 80047; 80053; 85025

== ENCOUNTER 2023-12-17 12:46 | Outpatient (CLI) | payer MEDICARE, SELFPAY ==
--- NOTE | 2024-01-07 11:08 | WPDSIXMINUTE ---
Six Minute Walk Procedure Procedure Performed Pulmonary Stress Test (6 min walk) Six Minute Walk Six Minute Walk: DATE OF SERVICE: 12/17/2019 REQUESTING: Artie Coelho MD REASON FOR TESTING: exertional dyspnea SIX MINUTE WALK This test was conducted per ATS guidelines. The initial saturation was 97%, and initial heart rate was 61 beats per minute. The patient walked without stopping, completing 700 ft/ 213 m while breathing room air. The saturation at the end of testing was 92%, and the heart rate was 88 beats per minute. IMPRESSION: This is a normal study. The patient did not require supplemental oxygen with exertion. Norah Abarca MD
== END 2023-12-17 12:47 | disposition home or self-care (01) ==
LOC: ANHPFT 12:47
PROVIDERS: PCP Family Medicine; Visit Provider Internal Medicine Pulmonary Disease
DX: J44.9 Chronic obstructive pulmonary disease, unspecified (principal)
CPT/HCPCS: 94375; 94726; 94729

== ENCOUNTER 2024-01-03 08:54 | Emergency (ER) | payer MEDICARE, SELFPAY ==
[2024-01-03] VITALS (10 sets, daily range): BP systolic 151–169; BP diastolic 52–78; PULSE 70–89; RESP 21–31; TEMP 37.3; O2SAT 92–100
--- NOTE | ~2024-01-03 | XR_ITS ---
EXAMINATION: XR chest 2V DATE: 01/03/2024 10:08 INDICATION: Chest pain. Rib pain. TECHNIQUE: Frontal and lateral views of the chest were obtained. COMPARISON: Chest CT 01/03/2024 FINDINGS: The lungs are hyperexpanded with lucencies, consistent with emphysema. Calcified pulmonary nodules and calcified hilar and mediastinal lymph nodes are consistent with old granulomatous disease . There are airspace opacities in right lower lobe. There is mild scarring in right midlung zone. The re is mild atelectasis in inferior left lung. There are trace pleural effusions. No pneumothorax. Car diomegaly is noted. Median sternotomy wires and mediastinal surgical clips are seen, likely from prio r coronary artery bypass grafting. There is a closure device at left atrial appendage. There are epidemiology intern rigo burst fractures of T9 and T10. IMPRESSION: 1. Emphysema. 2. 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 3. Cardiomegaly. Reviewed, dictated and finalized at location A.
--- NOTE | ~2024-01-03 | CT_ITS ---
EXAMINATION: CTA chest PE protocol DATE: 01/03/2024 10:02 INDICATION: Left chest pain. Shortness of breath. TECHNIQUE: Computed tomography angiography (CTA) of the chest was performed with 100 mL Omnipaque-350 intravenous contrast timed to evaluate the pulmonary arteries. Coronal maximum intensity projection 3D-reconstructions were created by the technologist. Automated exposure control and iterative reconst ruction technique were employed. The dose-length product was 196.81 mGy-cm. COMPARISON: Chest CT 10/01/2023, 07/13/22 FINDINGS: There is mild scarring at the lung apices. There is moderate emphysema. There are airspace opacities in anterobasal segment right lower lobe. There is a 9 mm nodule in right upper lobe with de creased from 12 mm on 07/13/2022, likely benign. Calcified pulmonary nodules and calcified hilar and mediastinal lymph nodes are consistent with old granulomatous disease. There are a few chronic scatte red nodules in the lungs measuring up to 4 mm, likely benign. There is mild atelectasis in inferior l eft lung. There are trace pleural effusions. Cardiomegaly is noted. There are coronary artery calcifi cations. There are changes of coronary bypass grafting. There is no pulmonary embolus. There are cyst s in left kidney measuring up to 1.9 cm. 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 The re is severe cervical spondylosis and moderate thoracic spondylosis. There are chronic burst fracture s of T9 and T10. There is mild chronic anterior wedging of T11 and T12 vertebral bodies. IMPRESSION: 1. No pulmonary embolus. 2. Moderate emphysema. 3. 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 Reviewed, dictated and finalized at location A.
--- NOTE | 2024-01-03 08:55 | ECG_ITS ---
SEE SCANNED COPY FOR CONFIRMED REPORT MTDD
--- NOTE | 2024-01-03 09:26 | ED.CHESTPAIN ---
HPI - Chest Pain General Chief Complaint: Chest Pain Stated Complaint: left sided rib pain/chest pain Time Seen by Provider: 01/03/24 09:26 Source: patient Mode of arrival: ambulatory Limitations: no limitations History of Present Illness HPI narrative: 83-year-old female presenting for chest pain. Started this morning when she woke up. It is really on the left lateral upper back. Has a history of pulmonary embolism and is currently on Eliquis. She is not short of breath more than her chronic shortness of breath from COPD. Pain is worse with movement and with deep breathing. Related Data Home Medications Medication Instructions Recorded Confirmed pantoprazole 40 mg tablet,delayed mg PO 05/31/23 12/04/23 release Allergies Allergy/AdvReac Type Severity Reaction Status Date / Time shellfish derived Allergy Unknown Nausea and Verified 12/04/23 13:08 Vomiting shrimp Allergy Unknown Nausea and Verified 12/04/23 13:08 Vomiting Review of Systems Review of Systems: All systems reviewed & are unremarkable except as noted in HPI and below PMFSH Past Medical History Medical History Coronary artery disease Dyslipidemia Essential (primary) hypertension GERD without esophagitis Right lower lobe pulmonary nodule Surgical History Surgical History H/O breast biopsy Left breast H/O cardiac catheterization H/O colonoscopy with polypectomy H/O inguinal hernia repair History of bladder repair surgery (~2015) History of bladder surgery History of cataract extraction (~2017) History of coronary artery bypass graft 09/2017 History of hip surgery History of removal of pigmented skin lesion Hx of hysterectomy, total (~2015) Family History Family History Sibling Family history of lung cancer Patient's brother is Family history of malignant neoplasm Father Family history of coronary artery disease Patient's father is , Onset Age: 70 Family history of heart disease in male family member before age 55 Mother Family history of coronary artery disease Patient's mother is , Onset Age: 70 Social History Social History Social History: And she is and had 3 children and one passed. 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 She is a former smoker. Code status full code Smoking packs per day: 1 Smoking cigarettes per day: 20.0 Years smoked: 60 Smoking pack-years: 60.00 Smoking status: Former smoker Tobacco type: cigarettes Second hand tobacco smoke exposure: No Smoking end date: 09/24/17 Additional smoking assessment comments: WAS CLOSET SMOKER PK EVERY 3-4 DAYS, 30+YRS OFF/ON - LAST END MAY 2021 Alcohol intake: never Substance use: never Substance use type: does not use Lack of Transportation: No Lack of Food: Never True Current Housing: I Have Housing Concerned About Future Housing: No Difficulty Paying Gas/Electric Bills: No Difficulty Paying for Meds: No Currently Unemployed: No Education: Grade School Difficulty w/ Childcare or Family Care: No Living arrangements: with family Occupation/Education: retired Gender identity (if verbalized by the patient): Female Sexual Orientation (if Verbalized by the Patient): Straight or Heterosexual Spiritual care concerns: No Exam Narrative: Constitutional: Generally well appearing, no acute distress Head: Atraumatic, no deformities. Eyes: Pupils equal, round, and reactive to light. Neck: Supple, no tracheal deviation, no JVD. ENMT: Mucous membranes moist Cardiovascular: S1, S2 auscultated. No murmurs, rubs, or gallops. No S3/S4. Normal Distal pulses. No peripheral edema. Respiratory: Lung sounds equal. No wheezes, rales,
[2024-01-03 09:29] LABS: Basophils Absolute Auto 0.1 K/mm3 (0.0-0.1); Basophils Percent Auto 0.9 % (0.2-1.2); Eosinophils Absolute Auto 0.2 K/mm3 (0-0.3); Eosinophils Percent Auto 1.9 % (0-4.4); Hematocrit 40.2 % (37.0-47.0); Hemoglobin 12.8 g/dL (12.0-15.0); Immature Granulocyte Absolute 0.05 K/mm3 (0.00-0.031); Immature Granulocyte Percent A 0.5 % (0-0.5); Lymphocytes Absolute Auto 1.01 K/mm3 (0.9-3.2); Mean Corpuscular HGB Conc 31.8 g/dl (32-36); Mean Corpuscular Hemoglobin 30.1 pg (26-34); Mean Corpuscular Volume 94.6 fl (80-100); Monocytes Absolute Auto 0.5 K/mm3 (0.1-0.6); Monocytes Percent Auto 5.2 % (2.6-8.5); Neutrophils Absolute Auto 7.4 K/mm3 (1.3-6.7); Neutrophils Percent Auto 80.5 % (45.5-73.1); Platelet Count Result 211 k/mm3 (150-375); Red Blood Count 4.25 M/mm3 (4.2-5.4); Red Cell Distribution Width 13.9 % (11.5-14.5); White Blood Count 9.2 K/mm3 (4.5-10.0)
[2024-01-03 09:39] LABS: INR 1.2; Prothrombin Time 15.9 Seconds (11.1-14.7)
[2024-01-03 09:40] LABS: Alanine Aminotransferase 13 U/L (6-35); Albumin Level 4.6 g/dL (3.5-5.1); Alkaline Phosphatase 76 U/L (38-126); Anion Gap 8 mmol/L (4-12); Aspartate Amino Transferase 22 U/L (14-36); Bilirubin,Total 0.9 mg/dL (0.2-1.3); Blood Urea Nitrogen 21 mg/dL (7-17); Calcium 9.4 mg/dL (8.4-10.2); Carbon Dioxide 29 mmol/L (22-30); Chloride 100 mmol/L (98-107); Estimated CRCL calculation 29 ml/min; Estimated Glomerular Filt Rate 60; Glucose 193 mg/dL (65-110); Lipase 85 U/L (23-300); Partial Thromboplastin Time 30.2 Seconds (22.3-36.8); Potassium 4.4 mmol/L (3.4-5.0); Sodium 137 mmol/L (137-145)
[2024-01-03 09:52] LABS: Troponin I < 0.012 ng/mL (0.000-0.034)
[2024-01-03 12:26] LABS: Troponin I < 0.012 ng/mL (0.000-0.034)
== END 2024-01-03 12:47 | disposition home or self-care (01) ==
PROVIDERS: Emergency Provider Emergency Medicine; PCP Family Medicine
DX: R07.1 Chest pain on breathing (principal); J44.9 Chronic obstructive pulmonary disease, unspecified; I25.10 Atherosclerotic heart disease of native coronary artery without angina pectoris; I10 Essential (primary) hypertension; E78.5 Hyperlipidemia, unspecified; K21.9 Gastro-esophageal reflux disease without esophagitis; Z95.1 Presence of aortocoronary bypass graft; Z86.711 Personal history of pulmonary embolism; Z87.19 Personal history of other diseases of the digestive system; Z87.891 Personal history of nicotine dependence; Z98.49 Cataract extraction status, unspecified eye; Z90.710 Acquired absence of both cervix and uterus; Z79.01 Long term (current) use of anticoagulants
CPT/HCPCS: 36415; 71046; 71275; 80053; 83690; 84484; 85025; 85610; 85730; 93005; 95864; 99284; Q9967

== ENCOUNTER 2024-01-07 14:21 | Outpatient (CLI) | payer MEDICARE, SELFPAY ==
--- NOTE | ~2024-01-07 | CT_ITS ---
EXAMINATION:CT diagnostic chest w con DATE: 01/07/2024 14:49 INDICATION: Malignant neoplasm of lower lobe of right lung. TECHNIQUE: Computed tomography (CT) of the chest was performed with 75 mL Omnipaque 350 intravenous c ontrast. Automated exposure control and iterative reconstruction technique were employed. The dose-le ngth product (DLP) was 179.67 mGy-cm. COMPARISON: Chest CT 01/03/2024, 07/13/22 FINDINGS: There is moderate emphysema. There is a 10 mm nodule in right upper lobe that measured 12 m m on 07/13/2022, likely benign. There are airspace opacities in lateral segment right middle lobe and anterobasal segment right lower lobe. Calcified pulmonary nodules are consistent with old granulomat ous disease. There is a small left pleural effusion. Cardiomegaly is noted. There are coronary artery calcifications. No pericardial effusion. There are cysts in left kidney measuring up to 1.9 cm. Ther e is kyphosis of thoracic spine. There is severe cervical spondylosis. There are chronic burst fractu res of T9 and T10. IMPRESSION: 1. 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 2. Moderate emphysema. 3. Small left pleural effusion. Reviewed, dictated and finalized at location E. IMPRESSION: 1. 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 2. Moderate emphysema. 3. Small left pleural effusion.
== END 2024-01-07 14:22 | disposition home or self-care (01) ==
LOC: ANHIMG 14:24
PROVIDERS: PCP Family Medicine; Visit Provider Internal Medicine Hematology & Oncology
DX: C34.31 Malignant neoplasm of lower lobe, right bronchus or lung (principal); J43.9 Emphysema, unspecified; J90 Pleural effusion, not elsewhere classified; R91.8 Other nonspecific abnormal finding of lung field
CPT/HCPCS: 71260; Q9967

== ENCOUNTER 2024-01-23 12:47 | Outpatient (CLI) | payer MEDICARE, SELFPAY ==
[2024-01-23 13:33] LABS: Basophils Absolute Auto 0.1 K/mm3 (0.0-0.1); Basophils Percent Auto 1.4 % (0.2-1.2); Eosinophils Absolute Auto 0.4 K/mm3 (0-0.3); Eosinophils Percent Auto 5.5 % (0-4.4); Hematocrit 39.8 % (37.0-47.0); Hemoglobin 12.5 g/dL (12.0-15.0); Immature Granulocyte Absolute 0.03 K/mm3 (0.00-0.031); Immature Granulocyte Percent A 0.5 % (0-0.5); Lymphocytes Absolute Auto 1.36 K/mm3 (0.9-3.2); Lymphocytes Percent Auto 20.7 % (18.3-44.2); Mean Corpuscular HGB Conc 31.4 g/dl (32-36); Mean Corpuscular Hemoglobin 30.2 pg (26-34); Mean Corpuscular Volume 96.1 fl (80-100); Mean Platelet Volume 9.7 fl (7.4-10.4); Monocytes Absolute Auto 0.5 K/mm3 (0.1-0.6); Monocytes Percent Auto 7.8 % (2.6-8.5); Neutrophils Absolute Auto 4.2 K/mm3 (1.3-6.7); Neutrophils Percent Auto 64.1 % (45.5-73.1); Platelet Count Result 195 k/mm3 (150-375); Red Blood Count 4.14 M/mm3 (4.2-5.4); Red Cell Distribution Width 13.9 % (11.5-14.5); White Blood Count 6.6 K/mm3 (4.5-10.0)
[2024-01-23 13:37] LABS: Blood Urea Nitrogen 21 mg/dL (8-26); Carbon Dioxide 25 mmol/L (22-30); Chloride 101 mmol/L (98-109); Estimated Glomerular Filt Rate 53; Glucose 107 mg/dL (70-105); Ionized Calcium (POC) 1.11 mmol/L (1.11-1.31); Sodium 138 mmol/L (138-146)
[2024-01-23 16:42] LABS: Alanine Aminotransferase 12 U/L (6-35); Albumin Level 4.3 g/dL (3.5-5.1); Alkaline Phosphatase 70 U/L (38-126); Anion Gap 6 mmol/L (4-12); Aspartate Amino Transferase 22 U/L (14-36); Bilirubin,Total 0.5 mg/dL (0.2-1.3); Blood Urea Nitrogen 21 mg/dL (7-17); Calcium 9.4 mg/dL (8.4-10.2); Carbon Dioxide 26 mmol/L (22-30); Chloride 103 mmol/L (98-107); Estimated Glomerular Filt Rate 60; Glucose 103 mg/dL (65-110); Potassium 4.1 mmol/L (3.4-5.0); Sodium 135 mmol/L (137-145)
[2024-01-23 16:49] LABS: Cholesterol 155 mg/dL (0-200); HDL Direct 60 mg/dL; Triglycerides 78 mg/dL (<150)
[2024-01-23 16:59] LABS: LDL Cholesterol Direct 78 mg/dL
== END 2024-01-23 12:48 | disposition home or self-care (01) ==
PROVIDERS: Physician Assistant; PCP Family Medicine; Visit Provider Internal Medicine Hematology & Oncology
DX: E78.5 Hyperlipidemia, unspecified (principal); Z13.220 Encounter for screening for lipoid disorders; C34.31 Malignant neoplasm of lower lobe, right bronchus or lung
CPT/HCPCS: 36415; 80047; 80053; 80061; 85025

== ENCOUNTER 2024-03-24 09:56 | Outpatient (CLI) | payer MEDICARE, SELFPAY ==
--- NOTE | ~2024-03-24 | MMUS_ITS ---
EXAMINATION: MM diagnostic davey BI w marques, US breast RT limited HISTORY: Palpable right breast lump TECHNIQUE: 3-D tomosynthesis images of the bilateral breasts were performed and synthetic 2-D images were generated. CAD analysis was submitted and interpreted. High resolution limited right breast ultr asound was performed. COMPARISON: 01/16/2017 BREAST PARENCHYMAL COMPOSITION:Dense: The breasts are extremely dense, which lowers the sensitivity o f mammography. FINDINGS: MAMMOGRAPHIC FINDINGS: Parenchymal pattern of both breasts is stable from prior exam. No suspicious mass lesion or distortio n seen. Benign vascular calcifications are present. No suspicious microcalcification. ULTRASOUND: At the 11:00 position right breast, near the nipple, there is a 9 x 5 x 9 mm hypoechoic mass, suggest howie of lymph node, with a reniform cortex and probable fatty hilum. At the 11:00 position right breas t, 5 cm from the nipple, no distinct sonographic abnormality seen. IMPRESSION: Suspected lymph node at the 11:00 position right breast near the nipple. Six-month follow-up ultraso und recommended to reassess and confirm stability. BI-RADS category 3, probably benign findings. Reviewed, dictated and finalized at location M. IMPRESSION: Suspected lymph node at the 11:00 position right breast near the nipple. Six-m onth follow-up ultrasound recommended to reassess and confirm stability. BI-RADS category 3, probably benign findings.
== END 2024-03-24 09:57 | disposition home or self-care (01) ==
LOC: ANHIMG 09:57
PROVIDERS: PCP Family Medicine; Visit Provider Physician Assistant Medical
DX: N63.12 Unspecified lump in the right breast, upper inner quadrant (principal)
CPT/HCPCS: 76642; 77062; 77066; G0279

== ENCOUNTER 2024-05-23 10:42 | Outpatient (CLI) | payer MEDICARE, SELFPAY ==
--- NOTE | ~2024-05-23 | CT_ITS ---
Clinical Indication: Lung cancer CT Scan of the Chest with Contrast: Technique: Contiguous sections were acquired throughout the chest after intravenous administration of 75 cc of Omnipaque 350. Dose reduction technique was used on this scan by utilizing automated exposu re control and iterative reconstruction technique. The dose-length product (DLP) was 213.88 mGy-cm. COMPARISON: 01/07/2024 Findings: There is no evidence of any significant mediastinal, hilar or axillary lymphadenopathy. There is no f illing defect in the pulmonary arterial tree to suggest pulmonary embolus. There is no evidence of ao rtic dissection or aneurysm. There is no evidence of pleural or pericardial effusion. Irregular masslike consolidation in the right lower lobe is similar to prior exam, measuring approxim ately 3.4 cm in maximum diameter (coronal image 48, axial image 78). Additional smaller spiculated no dule in the right upper lobe is decreased in size (axial image 45), measuring approximately 0.7 cm in diameter. Moderate emphysema present. Calcified granulomas are present. Images through the upper abdomen reveal no abnormalities. Stable compression fractures of T9 and T10. Impression: Stable irregular somewhat masslike consolidation right lower lobe, which could reflect treated diseas e/post therapy change. 0.7 cm right upper lobe pulmonary nodule is decreased in size from prior exam. Moderate emphysema. Stable T9 and T10 compression fractures. Reviewed, dictated and finalized at [facility]. Impression: Stable irregular somewhat masslike consolidation right lower lobe, which could reflect treated disease/post therapy change. 0.7 cm right upper lobe pulmonary nodule is decreased in size from prior exam. Moderate emphysema. Stable T9 and T10 compression fractures.
[2024-05-23 11:25] LABS: Estimated Glomerular Filt Rate 47
== END 2024-05-23 10:43 | disposition home or self-care (01) ==
PROVIDERS: PCP Family Medicine; Visit Provider Internal Medicine Hematology & Oncology
DX: C34.31 Malignant neoplasm of lower lobe, right bronchus or lung (principal); R91.1 Solitary pulmonary nodule; J43.9 Emphysema, unspecified; M48.54XA Collapsed vertebra, not elsewhere classified, thoracic region, initial encounter for fracture
CPT/HCPCS: 71260; Q9967

== ENCOUNTER 2024-05-28 10:22 | Outpatient (CLI) | payer MEDICARE, SELFPAY ==
[2024-05-28 10:48] LABS: Basophils Absolute Auto 0.1 K/mm3 (0.0-0.1); Basophils Percent Auto 0.7 % (0.2-1.2); Eosinophils Absolute Auto 0.3 K/mm3 (0-0.3); Eosinophils Percent Auto 3.2 % (0-4.4); Hematocrit 39.8 % (37.0-47.0); Hemoglobin 12.7 g/dL (12.0-15.0); Immature Granulocyte Absolute 0.05 K/mm3 (0.00-0.031); Immature Granulocyte Percent A 0.5 % (0-0.5); Lymphocytes Absolute Auto 1.18 K/mm3 (0.9-3.2); Lymphocytes Percent Auto 11.9 % (18.3-44.2); Mean Corpuscular HGB Conc 31.9 g/dl (32-36); Mean Corpuscular Hemoglobin 30.2 pg (26-34); Mean Corpuscular Volume 94.5 fl (80-100); Mean Platelet Volume 9.3 fl (7.4-10.4); Monocytes Absolute Auto 0.5 K/mm3 (0.1-0.6); Monocytes Percent Auto 5.4 % (2.6-8.5); Neutrophils Absolute Auto 7.8 K/mm3 (1.3-6.7); Neutrophils Percent Auto 78.3 % (45.5-73.1); Platelet Count Result 237 k/mm3 (150-375); Red Blood Count 4.21 M/mm3 (4.2-5.4); Red Cell Distribution Width 14.4 % (11.5-14.5); White Blood Count 9.9 K/mm3 (4.5-10.0)
[2024-05-28 10:56] LABS: Blood Urea Nitrogen 19 mg/dL (8-26); Carbon Dioxide 27 mmol/L (22-30); Chloride 103 mmol/L (98-109); Estimated Glomerular Filt Rate 47; Glucose 95 mg/dL (70-105); Ionized Calcium (POC) 1.16 mmol/L (1.11-1.31); Potassium 4.2 mmol/L (3.5-4.9); Sodium 139 mmol/L (138-146)
[2024-05-28 13:04] LABS: Alanine Aminotransferase 13 U/L (6-35); Albumin Level 4.2 g/dL (3.5-5.1); Alkaline Phosphatase 66 U/L (38-126); Anion Gap 10 mmol/L (4-12); Aspartate Amino Transferase 22 U/L (14-36); Bilirubin,Total 0.6 mg/dL (0.2-1.3); Blood Urea Nitrogen 19 mg/dL (7-17); Calcium 9.2 mg/dL (8.4-10.2); Carbon Dioxide 27 mmol/L (22-30); Chloride 100 mmol/L (98-107); Estimated Glomerular Filt Rate 53; Glucose 97 mg/dL (65-110); Potassium 4.2 mmol/L (3.4-5.0); Sodium 137 mmol/L (137-145)
== END 2024-05-28 10:23 | disposition home or self-care (01) ==
LOC: ANHLAB 10:25
PROVIDERS: PCP Family Medicine; Visit Provider Internal Medicine Hematology & Oncology
DX: C34.31 Malignant neoplasm of lower lobe, right bronchus or lung (principal)
CPT/HCPCS: 36415; 80047; 80053; 85025

== ENCOUNTER 2024-10-10 12:23 | Outpatient (CLI) | payer MEDICARE, SELFPAY ==
--- NOTE | ~2024-10-10 | US_ITS ---
US breast RT limited 10/10/2024 12:58 Indication: Follow-up right breast mass Procedure: High-resolution Limited ultrasound of the right breast Comparison: 03/24/2024 Findings: At 11:00 near the nipple there is an oval circumscribed parallel oriented hypoechoic mass m easuring 10 x 6 x 4 mm compared with 9 x 9 x 5 mm on prior examination. The mass is slightly less het erogeneous than on prior study. No internal vascularity. Impression: 1: Stable likely benign right breast mass. BI-RADS CATEGORY 3-PROBABLY BENIGN FINDING RECOMMENDATION: Six-month follow-up bilateral mammogram and Limited right breast ultrasound recommend ed. Reviewed, dictated and finalized at location A. 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 BI-RADS CATEGORY 3-PROBABLY BENIGN FINDING RECOMMENDATION: Six-month follow-up bilateral mammogram and Limited right breas t ultrasound recommended.
== END 2024-10-10 12:24 | disposition home or self-care (01) ==
LOC: ANHIMG 12:24
PROVIDERS: PCP Family Medicine; Visit Provider Family Medicine
DX: R92.8 Other abnormal and inconclusive findings on diagnostic imaging of breast (principal)
CPT/HCPCS: 76642

== ENCOUNTER 2024-11-24 10:10 | Outpatient (CLI) | payer MEDICARE, SELFPAY ==
[2024-11-24 11:02] LABS: Estimated Glomerular Filt Rate 43
== END 2024-11-24 10:11 | disposition home or self-care (01) ==
PROVIDERS: PCP Family Medicine; Visit Provider Internal Medicine Hematology & Oncology
DX: C34.91 Malignant neoplasm of unspecified part of right bronchus or lung (principal); R91.8 Other nonspecific abnormal finding of lung field
CPT/HCPCS: 71260; Q9967

== ENCOUNTER 2024-12-01 10:06 | Outpatient (CLI) | payer MEDICARE, SELFPAY ==
[2024-12-01 10:22] LABS: Basophils Absolute Auto 0.1 K/mm3 (0.0-0.1); Eosinophils Absolute Auto 0.4 K/mm3 (0-0.3); Eosinophils Percent Auto 4.2 % (0-4.4); Hematocrit 37.8 % (37.0-47.0); Hemoglobin 12.2 g/dL (12.0-15.0); Immature Granulocyte Absolute 0.04 K/mm3 (0.00-0.031); Immature Granulocyte Percent A 0.5 % (0-0.5); Lymphocytes Absolute Auto 1.58 K/mm3 (0.9-3.2); Mean Corpuscular HGB Conc 32.3 g/dl (32-36); Mean Corpuscular Hemoglobin 30.5 pg (26-34); Mean Corpuscular Volume 94.5 fl (80-100); Mean Platelet Volume 9.1 fl (7.4-10.4); Monocytes Absolute Auto 0.7 K/mm3 (0.1-0.6); Monocytes Percent Auto 7.8 % (2.6-8.5); Neutrophils Absolute Auto 5.6 K/mm3 (1.3-6.7); Neutrophils Percent Auto 67.5 % (45.5-73.1); Platelet Count Result 218 k/mm3 (150-375); Red Cell Distribution Width 14.3 % (11.5-14.5); White Blood Count 8.3 K/mm3 (4.5-10.0)
[2024-12-01 10:25] LABS: Blood Urea Nitrogen 25 mg/dL (8-26); Carbon Dioxide 26 mmol/L (22-30); Chloride 102 mmol/L (98-109); Estimated Glomerular Filt Rate 39; Glucose 97 mg/dL (70-105); Ionized Calcium (POC) 1.17 mmol/L (1.11-1.31); Potassium 4.8 mmol/L (3.5-4.9); Sodium 140 mmol/L (138-146)
[2024-12-01 11:02] LABS: Alanine Aminotransferase 15 U/L (6-35); Albumin Level 4.3 g/dL (3.5-5.1); Alkaline Phosphatase 70 U/L (38-126); Anion Gap 9 mmol/L (4-12); Aspartate Amino Transferase 24 U/L (14-36); Bilirubin,Total 0.6 mg/dL (0.2-1.3); Blood Urea Nitrogen 27 mg/dL (7-17); Calcium 9.5 mg/dL (8.4-10.2); Carbon Dioxide 29 mmol/L (22-30); Chloride 102 mmol/L (98-107); Estimated Glomerular Filt Rate 44; Glucose 99 mg/dL (65-110); Sodium 140 mmol/L (137-145)
--- OUTSIDE RECORDS SUMMARY | 2024-12-01 11:48 | XMS_ITS | Encounter Summary ---
Author Organization [facility] Address 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 Gender Identity Not on file Sexual Orientation Not on file documented as of this encounter Plan of Treatment Upcoming Encounters Date Type Department Care Team (Late st Contact Info) Description 12/18/2024 4:00 PM CDT Telephone Check Up [facility] Oncology and Hematology - [place] [address] [place] [id number] [place] [address] [place] [id number] documented as of this encounter Visit Diagnoses Not on filedocumented in this encounter Care Teams Appliquer Relationship Specialty Start Date End Date Kiesha Vu MD [address] [place] [address] PCP - General Family Practice 12/06/22 documented as of this encounter
--- OUTSIDE RECORDS SUMMARY | 2024-12-01 11:48 | XMS_ITS | Referral Summary ---
Author Organization [facility] Address [address] [place] [id number] Care Team Providers Care [employer] Social Science Teacher Name Role Phone Tanisha Martínez MD Unavailable [phone] Kiesha Vu MD Primary Care Provider [phone] Allergies Active Allergy Reactions Criticality Noted Date Comments Shellfish Containing Products Other (See comments),Shortness of breath High 08/26/2021 Medications aspirin 81 mg tablet take 1 tablet by oral route every day 0 0 4 Active Additional Information Patient not taking.Reported on 11/28/2023 simvastatin (ZOCOR) 10 mg tablet TAKE 1 TABLET BY MOUTH AT NIGHT 90 tablet [address] (PROTONIX) 40 mg EC tablet Take 1 tablet (40 mg total) by mouth every morning 30 tablet 11 3 Active Additional Information Patient not taking.Reported on 11/28/2023 vitamin D3-vitamin K2 25 mcg (1,000 unit)-90 mcg tablet,disinteg rating Take 25 mcg by mouth 2 (two) times a day Takes two tablets a day Active calcium carbonate-mag hydroxid 400-135 mg/5 mL suspension Take by mouth as needed (heartburn) Active metoprolol XL (TOPROL-XL) 25 mg extended release tablet TAKE 1 TABLET BY MOUTH ONCE DAILY 90 tablet 2 4 Active Eliquis 5 mg tablet TAKE 1 TABLET (5 MG TOTAL) BY MOUTH 2 (TWO) TIMES A DAY 180 tablet 1 4 Active Active Problems Problem Noted Date Diagnosed Date Coronary artery disease invo lving [place] coronary artery of [place] heart without angina pectoris 03/21/2017 Assessment & Plan (04/03/2019 10:37 AM CDT): No symptoms of myocardial ischemia. Continue aspirin. Assessment & Plan (01/11/2018 1:52 PM CDT): No symptoms of myocardial ischemia three months following coronary artery bypass grafting for LAD/diagonal disease. Continue anti-platelet and beta-sridhar therapy. Assessment & Plan (03/22/2017 5:17 PM CDT): Asymptomatic. Continue aspirin and beta-sridhar therapy. Hyperlipidemia 03/21/2017 Assessment & Plan (04/03/2019 10:38 AM CDT): On chronic lipid lowering therapy with good control. No changes made. Assessment & Plan (01/11/2018 1:52 PM CDT): On chronic lipid lowering therapy with good control. No changes made. Assessment & Plan (03/22/2017 5:27 PM CDT): On chronic lipid lowering therapy with good control. No changes made. 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 Gender Identity Not on file Sexual Orientation Not on file Last Filed Vital Signs Vital Sign Reading Time Taken Comments Blood Pressure 130/74 11/28/2023 1:05 PM BREAD DUMPER Pulse 68 11/28/2023 1:05 PM BREAD DUMPER Temperature - - Respiratory Rate - - Oxygen Saturation 98% 11/28/2023 1:05 PM BREAD DUMPER Inhaled Oxygen Concentration - - Weight 44.9 kg (99 lb) 11/28/2023 1:05 PM BREAD DUMPER Height 160 cm (5' 3 ) 11/28/2023 1:05 PM BREAD DUMPER Body Mass Index 17.54 11/28/2023 1:05 PM BREAD DUMPER Plan of Treatment Not on file Insurance MEDICARE [facility] SENIOR SUPPLEMENT MEDICARE AET SENIOR SUPPLEMENT Advance Directives For more information, please contact: [phone] Documents on File Type Date Recorded 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
--- OUTSIDE RECORDS SUMMARY | 2024-12-01 11:48 | XMS_ITS | Encounter Summary ---
Author Organization [facility] Address [address] [place] [address] Care Team Providers Care Lead Slot Technician Name Role Phone Kiesha Vu MD Primary Care Provider [phone] Reason for Referral * PET Scan (Routine) - Open Specialty Diagnoses / Procedures Referred By Contac t Referred To Contact Radiology Diagnoses Malignant neoplasm of lower lobe of right lung (CMS/HCC) Procedures PET TUMOR OR INFECTION IMG W CT SKB MD Daniel Suarez MD [address] [place] [address] Phone: tel: fax: Referral ID Status Reason Start Date Expiration Date V isits Requested Visits Authorized [id number] Open STL CTS 12/01/2024 01/01/2026 1 1 Reason for Visit * Reason Comments Cancer Follow Up Encounter Details Date Type Department Care Team (Late st Contact Info) Description 12/01/2024 11:00 AM CDT Office Visit [facility] Oncology and Hematology - Josse [facility] [address] [place] [address] Daniel Suarez MD [address] [place] [address] Malignant neoplasm of lower lobe of right lung (CMS/HCC) (Primary Dx) Social History Tobacco Use Types Packs/Day Years Used Date Smoking Tobacco: Former Smokeless Tobacco: Never Tobacco Cessation:Counseling Given: Not Answered Comments Unknown Sex and Gender Information Value Date Recorded Sex Assigned at Not on file Legal Sex Female 1:58 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 Gender Identity Not on file Sexual Orientation Not on file documented as of this encounter Last Filed Vital Signs Vital Sign Reading Time Taken Comments Blood Pressure 122/69 12/01/2024 10:37 AM CDT Pulse 67 12/01/2024 10:30 AM CDT Temperature 35.9 C (96.6 F) 12/01/2024 10:30 AM CDT Respiratory Rate 15 12/01/2024 10:30 AM CDT Oxygen Saturation 91% 12/01/2024 10:30 AM CDT Inhaled Oxygen Concentration - - Weight 43.3 kg (95 lb 6.4 oz) 12/01/2024 10:30 A M CDT Height - - Body Mass Index 16.9 07/20/2022 9:03 AM CDT documented in this encounter Progress Notes * Daniel Suarez MD - 12/01/2024 10:29 AM CDT HEMATOLOGY / ONCOLOGY PROGRESS NOTE Patient Identification: Name: John Delgado Age: 84 y.o. Sex: female : 1940 DIAGNOSIS T1 a N0 M0 stage Ia non-small cell lung cancer status post CT-guided biopsy of the right lower lobelung mass done on August 10, 2021. CURRENT TREATMENT Surveillance TREATMENT HISTORY SBRT treatment to the right lower lobe of the lung completed September 22 05/13/[address]-guided biopsy of the right lung lesion done on August 04, 2022 showed no evidence of malignancy. Patient completed SBRT to right upper lobe and the left lower lobe lung on January 18, 2023. SUBJECTIVE Patient came to the office for follow-up visit. She denies any fever chills or night sweats. Deniesany chest pain and shortness of breath. Weight and appetite stable. No other new complaints. Review of system Constitutional: denies fevers, sweats, weight and appetite stable, denies any tiredness and fatigueHEENT: denies sinus congestion, hearing or vision problems Respiratory: Denies any chest pain and shortness of breath. Cardiovascular: denies chest pain, exertional chest pressure/discomfort, nausea, syncope, complain of dyspnea on exertion. GI: denies constipation, diarrhea, dsyphagia, reflux symptoms, vomiting, melena : denies dysuria, frequency, incontinence, urgency Integumentary system: no lymphadenopathy, sweats, flushing Musculoskeletal: denies: myalgia, chronic back pain Neurological: denies blurry or disturbed vision, numbness/weakness, dizziness Skin: No lumps, bumps or rashes. 12 point review of system was reviewed Objective: Vital signs in last 24 hours: As per nursing note Exam: General appearance: alert, cooperative, no distress, appears stated age Head: normocephalic, without obvious abnormality, atraumatic Eyes: conjunctivae/corneas clear, EOM's intact Ears: normal external ear canals AU Nose: Nares normal. Septum midline. Mucosa normal. No drainage or sinus tenderness Throat: Lips, mucosa, and tongue normal. Teeth and gums normal Neck: supple, symmetrical, trachea midline. Lungs: clear to auscultation bilaterally Heart: regular rate and rhythm, S1, S2 normal, no murmur, click, rub or gallop Abdomen: soft, non-tender. Bowel sounds normal. No masses, No organomegaly Extremities: extremities normal, atraumatic, no cyanosis or edema Skin: Skin color, texture, turgor normal. No rashes or lesions Lymph nodes: No lymphadenopathy Neuro: No obvious focal deficit Exam as above PATH LABS Labs from October 17 showed WBC 7.2 hemoglobin 11.9 platelet 224,000 creatinine 1.0 Labs from January 25 showed WBC 6.6 hemoglobin 12.5 platelet 195,000 Labs from May 28 showed WBC 9.9 hemoglobin 12.7 platelet 237,000 creatinine 1.1 Labs from December 01 show WBC 8.3 hemoglobin 12.2 platelet 218,000 Assessment: Plan: Patient Active Problem List Diagnosis Date Noted Malignant neoplasm of lower lobe of right lung (CMS/HCC) 08/26/2021 T1 a N0 M0 stage Ia non-small cell lung cancer status post CT-guided biopsy of the right lower lobelung mass done on August 10, 2021. PET scan done on August 26 showed 16mm right lower lobe lung nodule with increased activity otherwise no evidence of metastatic disease. There were calcified bilateral lung nodules and calcified hilar and mediastinal lymph nodes consistent with old granulomatous disease. Patient completed SBRT treatment to the right lower lobe of lung on September 22, 2021 as she was not a surgical candidate. Patient had CT-guided biopsy of the right lung lesion done in August 04 came back benign. Patient completed SBRT treatment to right upper lobe and left lower lobe lung on January 18, 2023. Patient had CT scan chest done on November 24, 2024 showed 2 subcentimeter nodules in the left lower lobe increased in size from April 2024. Increase in size of the mass in the right upper lobe with decrease in size of mass in the right lung base. No other metastatic disease or lymphadenopathy. She is not much symptomatic but given the mixed report on the CT scan I will order PET scan and discussed this with her in couple of weeks. 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 She will continue long- term Eliquis. Chronic T9 and T10 fracture. Stable on vitamin D. She is asymptomatic. Phone visit in 1 week. 12/01/2024 Daniel Suarez MD documented in this encounter Plan of Treatment Upcoming Encounters Date Type Department Care Team (Late st Contact Info) Description 12/18/2024 4:00 PM CDT Telephone Check Up [facility] Oncology and Hematology [facility] [address] [place] [address] [place] [address] [place] [address] Scheduled Orders Name Type Priority Associated Diagnoses Orde r Schedule PET TUMOR OR INFECTION IMG W CT SKB MDTH Imaging Routine Malignant neoplasm of lower lobe of right lung (CMS/HCC) Expected: 12/02/2024, Expires: 12/01/2025 documented as of this encounter Visit Diagnoses Diagnosis Malignant neoplasm of lower lobe of right lung (CMS/HCC)- Primary documented in this encounter Care Teams Lead Slot Technician Relationship Specialty Start Date End Date Kiesha Vu MD [address] [place] [id number] PCP - General Family Practice 12/06/22 documented as of this encounter
--- OUTSIDE RECORDS SUMMARY | 2024-12-01 11:48 | XMS_ITS | Clinical Summary ---
Author Organization [facility] Address Formerly [facility] [place] [address] Care Team Providers Care Hop Weigher Name Role Phone Amy Cici Díaz Primary Care Provide r Allergies Active Allergy Reactions Criticality Noted Date Comments Shrimp Extract Shortness of Breath High 08/26/2021 Medications HYDROcodone-acet aminophen (NORCO) 5-325 MG tabletIndication s:Acute Pain < 3 Day Supply Take 1 tablet by mouth every 6 (six) hours as needed for Pain. Indications : Acute Pain < 3 Day Supply 12 tablet 03/01/2023 Active naproxen (NAPROSYN) 250 MG tablet Take 1 tablet (250 mg total) by mouth 2 (two) times daily with meals. 20 tablet 03/01/2023 Active Social History Tobacco Use Types Packs/Day Years Used Date Smoking Tobacco: Former Cigarettes Smokeless Tobacco: Never Tobacco Cessation:Counseling Given: Not Answered Alcohol Use Standard Drinks/Week Comments Not Currently 0 (1 standard drink = 0.6 oz pur e alcohol) Comments No Sex and Gender Information Value Date Recorded Sex Assigned at Not on file Legal Sex Female 11:02 AM CDT Gender Identity Not on file Sexual Orientation Not on file Last Filed Vital Signs Vital Sign Reading Time Taken Comments Blood Pressure 139/64 06/03/2024 1:45 AM CDT Pulse 90 06/03/2024 1:45 AM CDT Temperature 37.2 C (99 F) 06/03/2024 1:45 AM CDT Respiratory Rate 21 06/03/2024 1:45 AM CDT Oxygen Saturation 95% 06/03/2024 1:45 AM CDT Inhaled Oxygen Concentration - - Weight 40.8 kg (90 lb) 06/03/2024 12:12 AM CDT Height 157.5 cm (5' 2 ) 06/03/2024 12:12 AM CDT Body Mass Index 16.46 06/03/2024 12:12 AM CDT Plan of Treatment Health Maintenance Due Date Last Done Comments DTaP, Tdap and Td Vaccines ( 1 - Tdap) 1959 Zoster Vaccines (1 of 2) 1989 Annual Medicare Wellness Visit 01/24/2004 RSV Immunization or 60+ Years (1 - 1-dose 75+ series) 2014 COVID-19 Vaccine ( - 2023-2 5 season) 2024 12/26/2021, 07/20/2021 Influenza Adult (#1) 2024 06/25/2020, 08/29/2019, 06/18/2018 Pneumococcal Vaccine: 65+ Years Completed 08/29/2019, 06/18/2018 Meningococcal B Vaccine Aged Out No l onger eligible based on patient's age to complete this topic Meningococcal Vaccine Aged Out No vanessa slade eligible based on patient's age to complete this topic RSV Immunizations Under 20 Months Aged Out No longer eligible b ased on patient's age to complete this topic [place] [address] Care Teams Hop Weigher Relationship Specialty Start Date End Date Amy Cici Díaz PA [address] [place], [place] [id number] PCP - General Physician [facility] 06/03/24
--- OUTSIDE RECORDS SUMMARY | 2024-12-01 11:49 | XMS_ITS | Clinical Summary ---
Author Organization [facility] Address [address] [place] [address] Care Team Providers Care Social Media Designer Name Role Phone Kiesha Vu MD Primary Care Provider [phone] Allergies Active Allergy Reactions Criticality Noted Date Comments Shellfish Containing Products Other (See Comments) 01/09/2022 Shrimp Shortness of Breath/Wheezing High 08/26/2021 Medications omeprazole (PriLOSEC) 20 mg Capsule, Delayed Release(E.C.) Take 20 mg by mouth daily. Active metoprolol succinate (TOPROL XL) 25 mg Extended Release 24 hour tablet Take 25 mg by mouth daily. Active simvastatin (ZOCOR) 10 mg tablet Take 10 mg by mouth daily with supper. Active Active Problems Problem Noted Date Diagnosed Date Malignant neoplasm of lower lobe of right lung 1 10/27/2020 Encounters Date Type Department Care Team Description 12/01/2024 11:00 AM CDT Office Visit [facility] Oncology and Hematology [facility] [address] [place] [address] Daniel Suarez MD Malignant neoplasm of lower lobe of right lung (CMS/HCC) (Primary Dx) 11/28/2024 External Device Data STL ABSTRACTION Provider, Abstract 11/25/2024 Orders Only [facility] Oncology and [facility] [address] [place] [address] Daniel Suarez MD 11/12/2024 External Device Data STL ABSTRACTION Provider, Abstract 10/21/2024 External Device Data STL ABSTRACTION Provider, Abstract from Last 3 Months Social History Tobacco Use Types Packs/Day Years Used Date Smoking Tobacco: Former Smokeless Tobacco: Never Tobacco Cessation:Counseling Given: Not Answered Comments Unknown Sex and Gender Information Value Date Recorded Sex Assigned at Not on file Legal Sex Female 1:58 PM DIRECTOR BANKING Gender Identity Not on file Sexual Orientation [...] oz) 12/01/2024 10:30 A M CDT Height 160 cm (5' 3 ) 07/20/2022 9:03 AM CDT Body Mass Index 16.9 07/20/2022 9:03 AM CDT Plan of Treatment Upcoming Encounters Date Type Department Care Team (Late st Contact Info) Description 12/18/2024 4:00 PM CDT Telephone Check Up [facility] Oncology and Hematology - Josse [address] [facility] [address] [place] [address] Daniel Suarez MD [address] [facility] [address] [place] [address] Health Maintenance Due Date Last Done Comments DTAP/TDAP/TD VACCINES (1 - Tdap) 1959 PNEUMOCOCCAL VACCINE 50+ YEARS (1 of 2 - PCV) 01/23/19 [birth year] Traditional Medicare (ACO) Annual Wellness Visit 01/23 ZOSTER VACCINE (1 of 2) 1989 OSTEOPOROSIS SCREENING 01/24/2004 RSV VACCINE (60+ or ) (1 - 1-dose 75+ series) 2014 INFLUENZA VACCINE (#1) 2024 Procedures Procedure Name Priority Date/Time Associated Diagnosis Comments CT CHEST W CONTRAST Routine 11/24/2024 10:34 AM DIRECTOR BANKING from Last 3 Months Results * CT CHEST W CONTRAST (11/24/2024 10:34 AM DIRECTOR BANKING) Anatomical Region Laterality Modality Chest Other Daniel Suarez MD CT ORDERABLES Final Result from Last 3 Months Insurance MEDICARE PART A AND B [employer]ET[employer] MEDICARE SUPP AESSI Advance Directives For more information, please contact: [phone] Documents on File Type Date Recorded Patient Subway Train 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
--- OUTSIDE RECORDS SUMMARY | 2024-12-01 11:49 | XMS_ITS | Clinical Summary ---
Author Organization [facility] [place] Address [address] [place] [address] Care Team Providers Care Liver Trimmer Name Role Phone Tanisha Martínez MD Unavailable [phone] Kiesha Vu MD Primary Care Provider [phone] Allergies Active Allergy Reactions Criticality Noted Date [...] Diagnosed Date Coronary artery disease invo lving [place] coronary artery of [place] heart without angina pectoris 03/21/2017 Assessment & [...] therapy with good control. No changes made. Surgical History Surgery Date Site/Laterality Comments BLADDER SURGERY Bladder Sling BYPASS GRAFT HIP SURGERY Medical History Medical History Date Comments Heart attack (HCC) Wears dentures Arthritis Family History Medical History Relation Name Comments Heart attack Father 2 Myocardial Infa rction; Cause of : Myocardial Infarction Heart attack Mother 2 Myocardial Infa rction; Cause of : Myocardial Infarction Relation Name Status Comments Father 1 Father 2 Mother 1 Mother 2 Social History Tobacco Use Types Packs/Day Years Used Date Smoking Tobacco: Former Cigarettes Q uit: 02/14/2021 Smokeless Tobacco: Never Tobacco Cessation:Counseling Given: Not Answered Alcohol Use Standard Drinks/Week Comments No 0 (1 standard drink = 0.6 oz pur e alcohol) Comments Unknown Sex and Gender Information Value Date Recorded Sex Assigned at Not on file Legal Sex Female 10:09 AM VETERINARIAN Gender Identity Not on file Sexual Orientation Not on file Obstetrics History Last Filed Vital Signs Vital Sign Reading Time Taken Comments Blood Pressure 130/74 11/28/2023 1:05 PM VETERINARIAN Pulse 68 11/28/2023 1:05 PM VETERINARIAN Temperature - - Respiratory Rate - - Oxygen Saturation 98% 11/28/2023 1:05 PM VETERINARIAN Inhaled Oxygen Concentration - - Weight 44.9 kg (99 lb) 11/28/2023 1:05 PM VETERINARIAN Height 160 cm (5' 3 ) 11/28/2023 1:05 PM VETERINARIAN Body Mass Index 17.54 11/28/2023 1:05 PM VETERINARIAN Plan of Treatment Health Maintenance Due Date Last Done Comments Depression Screening 1940 Fall Risk Assessment 1940 Osteoporosis Screening-Bone Density Scan 1940 DTaP/Tdap/Td Vaccine (1 - Tdap) 1950 Hepatitis B Screening 1957 Zoster Vaccine (1 of 2) 1989 Well Visit 65+ 01/24/2004 Influenza Vaccine (#1) 2024 , 08/29/2019, 06/18/2018 Pneumococcal vaccine 65+ Completed 08/29/2019, 05/26 Insurance MEDICARE A[employer] SENIOR SUPPLEMENT MEDICARE AET[employer] SENIOR SUPPLEMENT Advance Directives For more information, please contact: [phone] Documents on File Type Date Recorded Patient Director Of Litigation Expl anation Power of Poultry Farm Laborer 05/23/2023 1:40 PM Care Teams Liver Trimmer Relationship Specialty Start Date End Date Kiesha Vu MD PCP - General Family Medicine 05/23/23 Tanisha Martínez MD Family Practice 05/14/20
== END 2024-12-01 10:07 | disposition home or self-care (01) ==
LOC: ANHLAB 10:07
PROVIDERS: PCP Family Medicine; Visit Provider Internal Medicine Hematology & Oncology
DX: C34.31 Malignant neoplasm of lower lobe, right bronchus or lung (principal)
CPT/HCPCS: 36415; 80047; 80053; 85025

== ENCOUNTER 2024-12-03 15:59 | Emergency (ER) | payer MEDICARE, SELFPAY ==
[2024-12-03] VITALS (13 sets, daily range): BP systolic 158–187; BP diastolic 64–85; PULSE 75–98; RESP 17–36; TEMP 36.5; O2SAT 94–100
--- NOTE | ~2024-12-03 | XR_ITS ---
XR chest 2V Ordering provider: Charlotte Castro PA-C History: 84 years Female with . sob . Comparison: None. FINDINGS: MEDIASTINUM: The cardiac silhouette is slightly enlarged. Postoperative changes in the mediastinum. LUNGS: No infiltrates, effusions or pneumothorax. Underlying emphysematous changes. Multiple granulomas seen in both lungs. OTHER: No free air under the diaphragm. Severe kyphosis with compression fractures in the midthoracic area unchanged from previous examination. IMPRESSION: No acute cardiopulmonary pathology. Reviewed, dictated and finalized at location A.
--- NOTE | 2024-12-03 16:05 | ED_ITS ---
HPI - SOB/Dyspnea General Chief Complaint: Shortness of Breath/Dyspnea <VERONICA Fu Last Filed: 12/03/24 16:09> Stated Complaint: SOB <VERONICA Fu Last Filed: 12/03/24 16:09> Time Seen by Provider: 12/03/24 16:05 <VERONICA Fu Last Filed: 12/03/24 16:09> Focused HPI: Patient is an 84 y/o female, with PMH of COPD, who presents to the ED with c/o SOB. Patient reports SOB has been ongoing for awhile, but became worse today over the past 1 hour. Tried using her inhaler at home w/o improvement. Report slight dry cough. Denies chest pain. Denies BLE pain or swelling. Denies fevers. Patient is on eliquis, but unsure why. GENERAL: Elderly, thin/frail, and in no acute distress. HEAD: Normocephalic, atraumatic. CHEST: Clear to auscultation. ?Respirations are tachypneic, no significant wheezing or rhonchi. HEART: Regular rate and rhythm.? NEURO: ?Alert and oriented x3. Patient screened in triage and initial orders placed.? ?Additional care and disposition to be based upon?diagnostic testing and treatment. <VERONICA Fu Last Filed: 12/03/24 16:09> Source: patient <VERONICA Fu Last Filed: 12/03/24 16:09> Mode of arrival: ambulatory <VERONICA Fu Last Filed: 12/03/24 16:09> Limitations: no limitations <VERONICA Fu Last Filed: 12/03/24 16:09> History of Present Illness HPI Narrative: Agree with triage note above. <VERONICA Heredia Last Filed: 12/04/24 01:27> Related Data Allergies/Adverse Reactions: Allergies Allergy/AdvReac Type Severity Reaction Status Date / Time shellfish derived Allergy Unknown Nausea and Verified 12/03/24 18:48 Vomiting shrimp Allergy Unknown Nausea and Verified 12/03/24 18:48 Vomiting <Charlotte Castro PA-C - Last Filed: 12/03/24 16:09> Review of Systems 2 Review of Systems: All systems as dictated in HPI <Arun Oliveira PA-C - Last Filed: 12/04/24 01:27> [facility] Past Medical History Medical History: Medical History (Updated 12/04/24 @ 00:01 by Alfredo Robison) REESE (dyspnea on exertion) Right lower lobe pulmonary nodule GERD without esophagitis Dyslipidemia Essential (primary) hypertension Coronary artery disease <VERONICA Fu Last Filed: 12/03/24 16:09> Surgical History Surgical History: Surgical History History of removal of pigmented skin lesion H/O cardiac catheterization History of bladder surgery H/O colonoscopy with polypectomy H/O breast biopsy Left breast H/O inguinal hernia repair History of hip surgery History of coronary artery bypass graft 09/2017 History of cataract extraction (~2017) History of bladder repair surgery (~2015) Hx of hysterectomy, total (~2015) <Charlotte Castro PA-C - Last Filed: 12/03/24 16:09> Family History Family History: Family History Sibling Family history of lung cancer Patient's brother is Family history of malignant neoplasm Father Family history of coronary artery disease Patient's father is , Onset Age: 70 Family history of heart disease in male family member before age 55 Mother Family history of coronary artery disease Patient's mother is , Onset Age: 70 <VERONICA Fu Last Filed: 12/03/24 16:09> Social History Social History: Social History Social History: And she is and had 3 children and one passed. 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 She is a former smoker. Code status full code Smoking packs per day: 1 Smoking cigarettes per day: 20.0 Years smoked: 60 Smoking pack-years: 60.00 Smoking status: Former smoker Tobacco type: cigarettes Second hand tobacco smoke exposure: No Smoking end date: 09/24/17 Additional smoking assessment comments: WAS CLOSET SMOKER PK EVERY 3-4 DAYS, 30+YRS OFF/ON - LAST END MAY 2021 Alcohol intake: never Substance use: never Substance use type: does not use Lack of Transportation: No Lack of Food: Never True Current Housing: I Have Housing Concerned About Future Housing: No Difficulty Paying Gas/Electric Bills: No Difficulty Paying for Meds: No Currently Unemployed: No Education: Grade School Difficulty w/ Childcare or Family Care: No Living arrangements: with family Occupation/Education: retired Gender identity (if verbalized by the patient): Female Sexual Orientation (if Verbalized by the Patient): Straight or Heterosexual Spiritual care concerns: No <Charlotte Castro PA-C - Last Filed: 12/03/24 16:09> Exam 2 Narrative: GENERAL: Well-appearing, well-nourished, and in no acute distress. HEAD: Normocephalic, atraumatic. EYES: PERRLA and EOMI. ENT: Nares clear, no rhinorrhea or epistaxis. Mucous membranes moist. Oropharynx without tonsillar hypertrophy exudate or other lesions. NECK: Supple. No adenopathy or masses. CHEST: No respiratory distress. Clear to auscultation. No wheezes rales or rhonchi HEART: Regular rate and rhythm. No murmur heard. Normal peripheral pulses. ABDOMEN: Soft, nontender, nondistended, normal active bowel sounds. MSK: Normal range of motion. No edema. SKIN: Warm, dry, no rash. NEURO: Alert and oriented x4. No focal deficits. PSYCH: Normal mood and affect. <Arun Oliveira PA-C - Last Filed: 12/04/24 01:27> Course Reevaluation(s) Reevaluation #1: Patient is feeling much improved after breathing treatment, magnesium and Solu-Medrol. Her ambulatory pulse ox test shows that she does not go below 93% while walking around the department. She feels comfortable with going home today. <Arun Oliveira PA-C - Last Filed: 12/04/24 01:27> Date: 12/03/24 <VERONICA Heredia Last Filed: 12/04/24 01:27> Time: 21:16 <VERONICA Heredia Last Filed: 12/04/24 01:27> Vital Signs Vital signs: Vital Signs Temperature 97.7 F 12/03/24 16:01 Pulse Rate 93 12/03/24 16:01 Respiratory Rate 26 H 12/03/24 16:01 Blood Pressure 178/85 H 12/03/24 16:01 Pulse Oximetry 99 12/03/24 16:01 Oxygen Delivery Room Air 12/03/24 16:01 Temperature 97.7 F 12/03/24 16:01 Pulse Rate 98 12/03/24 21:31 Respiratory Rate 28 H 12/03/24 21:31 Blood Pressure 164/64 H 12/03/24 20:45 Pulse Oximetry 94 12/03/24 21:31 Oxygen Delivery Room Air 12/03/24 18:50 <Charlotte Castro PA-C - Last Filed: 12/03/24 16:09> Vital Signs Temperature 97.7 F 12/03/24 16:01 Pulse Rate 93 12/03/24 16:01 Respiratory Rate 26 H 12/03/24 16:01 Blood Pressure 178/85 H 12/03/24 16:01 Pulse Oximetry 99 12/03/24 16:01 Oxygen Delivery Room Air 12/03/24 16:01 Temperature 97.7 F 12/03/24 16:01 Pulse Rate 98 12/03/24 21:31 Respiratory Rate 28 H 12/03/24 21:31 Blood Pressure 164/64 H 12/03/24 20:45 Pulse Oximetry 94 12/03/24 21:31 Oxygen Delivery Room Air 12/03/24 18:50 <VERONICA Heredia Last Filed: 12/04/24 01:27> MDM - SOB/Dyspnea MDM Narrative Medical decision making narrative: MSE by ROGELIO in triage. <VERONICA Fu Last Filed: 12/03/24 16:09> MSE by ROGELIO in triage. This is an 84 year-old female who presents to the ED for chief complaint of dyspnea on exertion. Vitals show mild tachypnea but otherwise normal. She is saturating well on room air. She does not exhibit overt respiratory distress. Work showing normal white count CBC. CMP shows no acute findings. BNP slightly elevated at 1900 today. She does not appear fluid overloaded. Chest x-ray shows no acute findings. Viral swabs are negative. Presentation more likely consistent with COPD exacerbation with her history. She was given hour long breathing treatment, Solu-Medrol, magnesium here with good relief of symptoms. She has not D saturated while ambulating. She will be given Rx for ICS, Medrol Dosepak. Patient will be discharged in stable condition. Supportive measures discussed and return precautions given. Patient is understanding and agreeable with plan for discharge with PCP follow-up. <Arun Oliveira PA-C - Last Filed: 12/04/24 01:27> Lab Data Result diagrams: 12/03/24 18:49 12/03/24 18:49 <Charlotte Castro PA-C - Last Filed: 12/03/24 16:09> Labs: Lab Results 12/03/24 Range/Units 18:49 WBC 7.4 (4.5-10.0) K/mm3 RBC 4.11 L (4.2-5.4) M/mm3 Hgb 12.4 (12.0-15.0) g/dL Hct 39.0 (37.0-47.0) % MCV 94.9 (80-100) fl MCH 30.2 (26-34) pg MCHC 31.8 L (32-36) g/dl RDW 14.3 (11.5-14.5) % Plt Count 218 (150-375) k/mm3 MPV 9.3 (7.4-10.4) fl Immature Gran % (Auto) 0.4 (0-0.5) % Neut % (Auto) 64.9 (45.5-73.1) % Lymph % (Auto) 20.5 (18.3-44.2) % [place] % (Auto) 8.6 H (2.6-8.5) % Eos % (Auto) 4.3 (0-4.4) % Baso % (Auto) 1.3 H (0.2-1.2) % Lymph # (Auto) 1.52 (0.9-3.2) K/mm3 [place] # (Auto) 0.6 (0.1-0.6) K/mm3 Eos # (Auto) 0.3 (0-0.3) K/mm3 Baso # (Auto) 0.1 (0.0-0.1) K/mm3 Abs Immat Gran (auto) 0.03 (0.00-0.031) K/mm3 Absolute Neuts (auto) 4.8 (1.3-6.7) K/mm3 Absolute Nucleated RBC 0.000 (0.0-0.012) K/mm3 Nucleated RBC % 0.0 (0.0-0.2) % PT 15.0 H (11.1-14.7) Seconds INR 1.1 APTT 23.7 (22.3-36.8) Seconds Sodium 139 (137-145) mmol/L Potassium 4.3 (3.4-5.0) mmol/L Chloride 105 (98-107) mmol/L Carbon Dioxide 23 (22-30) mmol/L Anion Gap 11 (4-12) mmol/L BUN 24 H (7-17) mg/dL Creatinine 1.05 H (0.7-1.0) mg/dL Estim Creat Clear Calc 25 ml/min Estimated GFR 50 L (59 - ) Glucose 105 (65-110) mg/dL Calcium 9.3 (8.4-10.2) mg/dL Magnesium 2.0 (1.6-2.3) mg/dL Total Bilirubin 0.5 (0.2-1.3) mg/dL AST 22 (14-36) U/L ALT 15 (6-35) U/L Alkaline Phosphatase 73 (38-126) U/L Troponin I < 0.012 (0.000-0.034) ng/mL NT-Pro-B Natriuret Pep 1900 H (19.9-100) pg/mL Total Protein 7.0 (6.3-8.2) g/dL Albumin 4.1 (3.5-5.1) g/dL Influenza A (RT-PCR) Negative (Negative) Influenza B (RT-PCR) Negative (Negative) RSV (RT-PCR) Negative (Negative) SARS-CoV-2 RNA (RT-PCR) Negative (Negative) <Charlotte Castro PA-C - Last Filed: 12/03/24 16:09> Lab Results 12/03/24 Range/Units 18:49 WBC 7.4 (4.5-10.0) K/mm3 RBC 4.11 L (4.2-5.4) M/mm3 Hgb 12.4 (12.0-15.0) g/dL Hct 39.0 (37.0-47.0) % MCV 94.9 (80-100) fl MCH 30.2 (26-34) pg MCHC 31.8 L (32-36) g/dl RDW 14.3 (11.5-14.5) % Plt Count 218 (150-375) k/mm3 MPV 9.3 (7.4-10.4) fl Immature Gran % (Auto) 0.4 (0-0.5) % Neut % (Auto) 64.9 (45.5-73.1) % Lymph % (Auto) 20.5 (18.3-44.2) % [place] % (Auto) 8.6 H (2.6-8.5) % Eos % (Auto) 4.3 (0-4.4) % Baso % (Auto) 1.3 H (0.2-1.2) % Lymph # (Auto) 1.52 (0.9-3.2) K/mm3 [place] # (Auto) 0.6 (0.1-0.6) K/mm3 Eos # (Auto) 0.3 (0-0.3) K/mm3 Baso # (Auto) 0.1 (0.0-0.1) K/mm3 Abs Immat Gran (auto) 0.03 (0.00-0.031) K/mm3 Absolute Neuts (auto) 4.8 (1.3-6.7) K/mm3 Absolute Nucleated RBC 0.000 (0.0-0.012) K/mm3 Nucleated RBC % 0.0 (0.0-0.2) % PT 15.0 H (11.1-14.7) Seconds INR 1.1 APTT 23.7 (22.3-36.8) Seconds Sodium 139 (137-145) mmol/L Potassium 4.3 (3.4-5.0) mmol/L Chloride 105 (98-107) mmol/L Carbon Dioxide 23 (22-30) mmol/L Anion Gap 11 (4-12) mmol/L BUN 24 H (7-17) mg/dL Creatinine 1.05 H (0.7-1.0) mg/dL Estim Creat Clear Calc 25 ml/min Estimated GFR 50 L (59 - ) Glucose 105 (65-110) mg/dL Calcium 9.3 (8.4-10.2) mg/dL Magnesium 2.0 (1.6-2.3) mg/dL Total Bilirubin 0.5 (0.2-1.3) mg/dL AST 22 (14-36) U/L ALT 15 (6-35) U/L Alkaline Phosphatase 73 (38-126) U/L Troponin I < 0.012 (0.000-0.034) ng/mL NT-Pro-B Natriuret Pep 1900 H (19.9-100) pg/mL Total Protein 7.0 (6.3-8.2) g/dL Albumin 4.1 (3.5-5.1) g/dL Influenza A (RT-PCR) Negative (Negative) Influenza B (RT-PCR) Negative (Negative) RSV (RT-PCR) Negative (Negative) SARS-CoV-2 RNA (RT-PCR) Negative (Negative) <Arun Oliveira PA-C - Last Filed: 12/04/24 01:27> Discharge Plan Discharge Clinical Impression: COPD exacerbation <VERONICA Fu Last Filed: 12/03/24 16:09> Patient Disposition: Home, Self-Care <VERONICA Fu Last Filed: 12/03/24 16:09> Condition: Stable <VERONICA Fu Last Filed: 12/03/24 16:09> Instructions: Antibiotic Form <VERONICA Fu Last Filed: 12/03/24 16:09> Additional Instructions: Your workup today was reassuring overall. You should follow-up with primary care doctor regarding increasing COPD symptoms. You may need to see pulmonology on this. Please take budesonide formoterol inhaler daily. If you have any new or worsening symptoms please return to the ER for further evaluation. <VERONICA Fu Last Filed: 12/03/24 16:09> Patient Language: Czech <Charlotte Castro PA-C - Last Filed: 12/03/24 16:09> Prescriptions: New budesonide-formoterol 160-4.5 mcg/actuation HFA aerosol inhaler 2 puff inhalation Q12H Qty: 10.2 0RF methylprednisolone [Medrol (Bipin)] 4 mg tablets,dose pack See Rx Instructions .ROUTE .COMPLEX Qty: 21 0RF Rx Instructions: for 6 days No Action albuterol sulfate 90 mcg/actuation HFA aerosol inhaler 2 puff INHALATION Q4H PRN (Reason: shortness of breath or wheezing) Qty: 8.5 6RF glycopyrrolate-formoterol 9-4.8 mcg HFA aerosol inhaler 2 puff inhalation BID Qty: 10.7 3RF furosemide [Lasix] 20 mg tablet 20 mg PO QAM Qty: 30 0RF metoprolol succinate 25 mg tablet extended release 24 hr 25 mg PO QAM Qty: 90 2RF Eliquis 5 mg tablet 5 mg PO Q12HR Qty: 60 5RF simvastatin 10 mg tablet See Rx Instructions .ROUTE .COMPLEX Qty: 90 3RF Dose Instruction: TAKE 1 TABLET BY MOUTH EVERY MORNING Rx Instructions: TAKE 1 TABLET BY MOUTH EVERY MORNING <Charlotte Castro PA-C - Last Filed: 12/03/24 16:09> Follow-up/Referrals: Kiesha Vu MD [Primary Care Provider] - Edmund Valdez MD [Physician] - <Charlotte Castro PA-C - Last Filed: 12/03/24 16:09> Time of Disposition: 21:09 <Charlotte Castro PA-C - Last Filed: 12/03/24 16:09> 21:09 <Arun Oliveira PA-C - Last Filed: 12/04/24 01:27>
--- NOTE | 2024-12-03 16:07 | ECG_ITS ---
Test Date: 2024-12-03 16:09:21 Measurements Intervals [place] Rate: 98 P: 60 [place]: 148 QRS: 20 QRSD: 90 T: 16 QT: 356 QTc: 455 Interpretive Statements SINUS RHYTHM MINIMAL ST DEPRESSION [0.025+ mV ST DEPRESSION] No previous ECG available for comparison Electronically Signed On 12-04-2024 13:56:51 CDT by Rogelio Marcelo M.D.
--- OUTSIDE RECORDS SUMMARY | 2024-12-03 17:43 | XMS_ITS | Clinical Summary ---
Author Organization [facility] Address [facility] [place] [address] Care Team Providers Care Hardener Helper Name Role Phone Amy iCci Díaz Primary Care Provide r Allergies Active [...] to complete this topic Insurance MEDICARE AET Care Teams Hardener Helper Relationship Specialty Start Date End Date Amy Cici Díaz PA [address] [place], [place] [id number] PCP - General Physician Marketing Development Specialist Medical 06/03/24
--- OUTSIDE RECORDS SUMMARY | 2024-12-03 17:43 | XMS_ITS | Encounter Summary ---
Author Organization [facility] Address 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 Gender Identity Not on file Sexual Orientation Not on file documented as of this encounter Plan of Treatment Upcoming Encounters Date Type Department Care Team (Late st Contact Info) Description 12/18/2024 4:00 PM CDT Telephone Check Up [facility] Oncology and Hematology - [place] [address] [place] [phone] [place] [address] [place] [phone] documented as of this encounter Visit Diagnoses Not on filedocumented in this encounter Care Teams Airplane Pilot Commercial Relationship Specialty Start Date End Date Kiesha Vu MD [address] [place] [address] PCP - General Family Practice 12/06/22 documented as of this encounter
--- OUTSIDE RECORDS SUMMARY | 2024-12-03 17:43 | XMS_ITS | Clinical Summary ---
Author Organization [facility] Suzanne campos [facility] Address [address] [facility] [address] Care Team Providers Care Fisher Trammel Net Name Role Phone Kiesha Vu MD Primary Care Provider [phone] Allergies Active Allergy Reactions Criticality Noted Date [...] Description 12/01/2024 11:00 AM CDT Office Visit [facility] Oncology and Hematology [facility] [address] [place] [address] Daniel Suarez MD Malignant neoplasm of lower lobe of right lung (CMS/HCC) (Primary Dx) 12/01/2024 Orders Only [facility] Oncology and Hematology [facility] [address] [facility] [place] [address] Daniel Suarez MD 12/01/2024 Abstract [facility] Oncology and Hematology [facility] [address] [place] [phone] Daniel Suarez MD 11/29/2024 External Device Data [facility] ABSTRACTION Provider, Abstract 11/28/2024 External Device Data [facility] ABSTRACTION Provider, Abstract 11/25/2024 Orders Only [facility] Oncology and Hematology - [place] [address] [place] [address] Daniel Suarez MD 11/12/2024 External [...] on file Legal 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 Gender Identity Not on file Sexual Orientation [...] 12/18/2024 4:00 PM CDT Telephone Check Up [facility] Oncology and Hematology - [place] [address] [place] [address] Daniel Suarez MD [address] [facility] [address] [place] [address] Health Maintenance Due Date Last [...] Procedure Name Priority Date/Time Associated Diagnosis Comments CBC WITH AUTODIFFERENTIAL Routine 2024 3:[address] CHEST W CONTRAST Routine 11/24/2024 1 0:34 AM CUSTOMER SERVICE AGENT from Last 3 Months Results * CBC WITH AUTODIFFERENTIAL (12/01/2024 3:49 PM CDT) Blood Daniel Suarez MD HEMATOLOGY ORDERABLES Final Res ult * CT CHEST W CONTRAST (11/24/2024 10:34 AM CUSTOMER SERVICE AGENT) Anatomical Region Laterality Modality Chest Other Daniel Suarez MD CT ORDERABLES Final Result from Last 3 Months Insurance MEDICARE PART A AND B AET[employer] MEDICARE SUPP AESSI Advance Directives For more information, please contact: [phone] Documents on File Type Date Recorded Patient Optical Laboratory Manager Expl anation Advance Directive POA 10/17/2023 10:34 AM Advance Directive POA Care Teams Fisher Trammel Net Relationship Specialty Start Date End Date Kiesha Vu MD [address] [place] [id number] PCP - General Family Practice 12/06/22
--- OUTSIDE RECORDS SUMMARY | 2024-12-03 17:43 | XMS_ITS | Referral Summary ---
Author Organization [facility] Address [address] [place] [phone] Care Team Providers Care Product Managent Intern Name Role Phone Tanisha Martínez MD Unavailable [phone] Kiesha Vu MD Primary Care Provider [phone] Encounters Date Type Department Care Team Description 12/03/2024 11:00 AM CDT Office Visit [facility] Cardiology [address] [facility] [address] [place] [address] Aadrsh Coreas MD Coronary artery disease involving elem coronary artery of elem heart without angina pectoris (Primary Dx); Status post angioplasty with stent; S/P CABG x 2; History of pulmonary embolism; Chronic anticoagulation; Pulmonary emphysema, unspecified emphysema type (HCC); Tobacco abuse, in remission from Last 3 Months Allergies Active Allergy Reactions Criticality Noted Date Comments Shellfish Containing Products Other (See comments),Shortness of breath High 08/26/2021 Shrimp Extract Shortness of breath High 08/26/2021 Medications aspirin 81 mg tablet take 1 tablet by oral route every day 0 0 4 Active Additional Information Patient not taking.Reported on 12/03/[address] (PROTONIX) 40 mg EC tablet Take 1 tablet (40 mg total) by mouth every morning 30 tablet 11 3 Active Additional Information Patient not taking.Reported on 12/03/2024 vitamin D3-vitamin K2 25 mcg (1,000 unit)-90 mcg tablet,disinte grating Take 25 mcg by mouth 2 (two) [...] A DAY 180 tablet 1 4 Active albuterol HFA (PROVENTIL HFA,VENTOLIN HFA,PROAIR HFA) 90 mcg/actuation inhaler INHALE 2 PUFFS EVERY 4 HOURS NEEDED FOR WHEEZE OR FOR SHORTNESS OF BREATH 5 Active rosuvastatin (CRESTOR) 20 mg tablet Take 1 tablet (20 mg total) by mouth nightly 90 tablet 6 5 Active simvastatin (ZOCOR) 10 mg tablet TAKE 1 TABLET BY MOUTH AT NIGHT 90 tablet 3 3 12/04/19 25 Discontin ued(Alter dayne therapy) Active Problems Problem Noted Date Diagnosed Date Coronary artery disease invo lving elem coronary artery of elem heart without angina pectoris 03/21/2017 Assessment & [...] on file 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 Gender Identity Not on file Sexual Orientation Not on file Last Filed Vital Signs Vital Sign Reading Time Taken Comments Blood Pressure 138/82 12/03/2024 10:51 AM CDT Pulse 73 12/03/2024 10:51 AM CDT Temperature - - Respiratory Rate - - Oxygen Saturation 96% 12/03/2024 10:51 AM CDT Inhaled Oxygen Concentration - - Weight 44.6 kg (98 lb 4.8 oz) 12/03/2024 10:51 A M CDT Height 160 cm (5' 3 ) 12/03/2024 10:51 AM CDT Body Mass Index 17.41 12/03/2024 10:51 AM CDT Plan of Treatment Not on file Procedures Procedure Name Priority Date/Time Associated Diagnosis Comments POCT LIPID PANEL Routine 12/03/2024 9:47 AM CDT Coronary artery disease involving elem coronary artery of elem heart without angina pectoris from Last 3 Months Results * POCT lipid panel (12/03/2024 9:47 AM CDT) Cholesterol, POC 150 mg/dL HDL, POC 72 mg/dL Triglycerides, POC 76 mg/dL LDL Cholesterol POC 63 mg/dL Chol/HDL Ratio, POC 0.9 Non-HDL Cholesterol, POC 78 mg/dL Cholesterol Total, POC 150 mg/dL Capillary blood 12/03/2024 9 :47 AM CDT Adarsh Coreas MD POINT OF CARE TEST ORDERABLES Fi nal Result from Last 3 Months Insurance MEDICARE AET SENIOR SUPPLEMENT MEDICARE AETNA SENIOR SUPPLEMENT Advance Directives For more information, please contact: [phone] Documents on File Type Date Recorded Patient Butcher Scullion Expl anation Power of Prop Drawer 05/23/2023 1:40 PM Care Teams Product Managent Intern Relationship Specialty Start Date End Date Kiesha Vu MD PCP - General Family Medicine 05/23/23 Tanisha Martínez MD Family Practice 05/14/20
--- OUTSIDE RECORDS SUMMARY | 2024-12-03 17:43 | XMS_ITS | Encounter Summary ---
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 Procedures Transthoracic Echo (TTE) Complete W Doppler/CF Adarsh Coreas MD [address] [place] [address] Phone: tel: fax: [facility] Medical [facility] Cardiology [address] [place] [address] Phone: tel: fax: Referral ID Status Reason Start Date Expiration Date V isits Requested Visits Authorized [id number] Authorized 12/03/2024 01/02/2026 1 1 Reason for Visit * Reason Comments Follow-up 1 year follow up Encounter Details Date Type Department Care Team (Late st Contact Info) Description 12/03/2024 11:00 AM CDT Office Visit [facility] Cardiology [address] [facility] [address] [place] [phone] Adarsh Coreas MD [address] [place] [address] 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 (Primary Dx); Status post angioplasty with stent; S/P CABG x 2; History of pulmonary embolism; Chronic anticoagulation; Pulmonary emphysema, unspecified emphysema type (HCC); Tobacco abuse, in remission Social History Tobacco Use Types Packs/Day Years Used Date Smoking Tobacco: Former Cigarettes Q uit: 02/14/2021 Smokeless Tobacco: Never Alcohol Use Standard Drinks/Week Comments No 0 (1 standard drink = 0.6 oz pur e alcohol) Comments Unknown Sex and Gender Information Value Date Recorded Sex Assigned at Not on file 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 female with CAD, history of inferior ST-elevation AZ, status post PCI/stenting of RCA in November 2010-intervention report not available; status post CABG x2 with FREEDMAN to LAD, SVG to diagonal branch in September 2017 at [place], [place] (operative report not available), tobacco abuse. 08/25/2020 initial evaluation-patient is here to reestablish cardiovascular care. She used to follow up with Dr. Lovett over the years for her cardiac care. Due to distance, patient wants to followup locally. She is accompanied by her . Patient has known CAD, and history of PCI/stenting of RCA in the setting of AZ. Intervention reportnot available. She states that she was diagnosed with non ST- elevation AZ in September 2017 [place], and had CABG x2 in [facility]. After surgical revascularization, patient didnot have any recurrent anginal chest pain. She did have an episode of diaphoresis in April 2020 without recurrence. At present, patient denies angina. She has dyspnea on oqui-xs-meojlsxy exertion, which is chronic in nature. No PND, orthopnea or lower extremity swelling. No palpitation, dizziness or syncope. Patient has history of tobacco abuse, and currently smokes 2 cigarettes per day. She is w illing to quit tobacco. 03/02/2021-patient is here for the routine follow-up visit. She denies angina. She has baseline dyspnea on exertion, able to walk 2 blocks before she gets short of breath. No recent worsening. She reports compliance with current medical regimen. Patient was previously scheduled for pulmonary function test, which has not been performed yet. Patient states that she has rescheduled for PFTs. Patientreports that she has quit smoking about 2 weeks ago. 03/08/2022-on the follow-up visit today, patient reports chronic dyspnea on exertion, able to walk about 1 block before she gets short of breath. She denies angina. Due to history of heavy tobacco abuse and dyspnea on exertion, PFTs were ordered previously, which showed some emphysema. Subsequently, she was evaluated by pulmonology, and CT scan of the chest reportedly showed right lung nodule. Patient is somewhat a poor historian. She states that she had radiation treatment of her lung cancer. She follows up with Oncology, but does not remember the name. She states that she has quit tobacco. 05/23/2023- patient is here for the follow-up visit accompanied by her yxishcer-hb-hdd. She was recently admitted to [facility] on 04/20/2023 with worsening shortness of breath. She was found to have acute PE, and treated with anticoagulation. She is currently on apixaban. She reports improvement in his shortness of breath. No chest pain. Reports compliance with current medical regimen. Patient is currently undergoing bereavement due to passing of her recently. 11/28/2023-patient is here for the follow-up visit accompanied by her efuryyuq-tq-ksf. She is baseline dyspnea on mild exertion. No recent worsening. Denies angina. Reports compliance with current medical regimen. No bleeding complications. 12/03/2024-patient is here for the follow-up visit accompanied by her ihwufohw-dd-vfd. She has chronic dyspnea on exertion, able to walk about half a block before she gets short of breath. No chest pain. No palpitation, dizziness or syncope. Patient is on chronic anticoagulation with apixaban, no overt bleeding complications. MEDICAL HISTORY she has a past medical history of Arthritis, Heart attack (CMS/HCC) (HCC), and Wears dentures. AZ she has a past surgical history that includes Bladder surgery; Bypass Graft; and Hip surgery. she Allergies Allergen Reactions Shellfish Containing Products Current Outpatient Medications Medication Sig Dispense Refill aspirin 81 mg tablet take 1 tablet by oral route every day 0 0 metoprolol XL (TOPROL-XL) 25 mg extended release tablet TAKE 1 TABLET BY MOUTH DAILY 90 tablet 3 omeprazole (PriLOSEC) 20 mg capsule TAKE 1 CAPSULE BY MOUTH DAILY 90 capsule 0 simvastatin (ZOCOR) 10 mg tablet TAKE 1 TABLET BY MOUTH AT NIGHT 90 tablet 3 varenicline (Chantix Starting Month Box) 0.5 mg (11)- 1 mg (42) tablet TAKE DIRECTED PER PACKAGEINSTRUCTIONS 53 tablet 0 No current facility-administered medications for this visit. she family history includes Heart attack in her father and mother. she reports that she quit smoking about 12 months ago. She has never used smokeless tobacco. She reports that she does not drink alcohol and does not use drugs. Lives with her . REVIEW OF SYSTEMS General ROS: negative for - Fever, chills, fatigue Psychological ROS: negative for - anxiety, depression Ophthalmic ROS: negative for - loss of vision ENT ROS: negative for - sore throat, epistaxis, headaches, nasal congestion Allergy and Immunology ROS: negative for - hives, postnasal drip Hematological and Lymphatic ROS: negative for - overt bleeding problems, bruising Respiratory ROS: negative for - cough, positive for dyspnea on exertion Cardiovascular ROS: negative for - chest pain, positive for dyspnea on exertion Gastrointestinal ROS: negative for - abdominal pain Endocrine ROS: negative for - hot flashes, polydipsia/polyuria Musculoskeletal ROS: negative for - joint pain, muscle pain Neurological ROS: negative for - gait disturbance, weakness Dermatological ROS: negative for pruritus, rash LABS AND OTHER DIAGNOSTIC TESTS REVIEWED No results found for: WBC, HGB, HCT, MCV, PLT No lab exists for component: LABALBU No results found for: WBC, HGB, HCT, MCV, PLT No results found for: CHOL No results found for: HDL No results found for: LDL] No results found for: TRIG Stress Test- fixed inferior defect but no stress-induced ischemia and a normal ejection fraction. March [id number]. [facility] note Lipids-total cholesterol 146, HDL 50, triglycerides 291, LDL 38. 04/03/2019 Labs- hemoglobin 12.5, platelet count 227-04/26/2020 EKG-sinus rhythm, no significant ST-T abnormality. 08/25/2020 Echo-Normal left ventricular size. Mild global left ventricular systolic dysfunction. Ejection fraction is visually estimated at 50 %. Ejection fraction is measured at 46 %. These segments of the LV are hypokinetic: basal inferior segment. There is mild enlargement of left atrium. Mild mitral valve regurgitation. Mild tricuspid regurgitation. Mild pulmonary hypertension. Estimated peak RVSP is 37mmHg. Normal sinus rhythm. 08/25/2020-Dr. Ríos PFT-severe obstructive ventilatory impairment with moderate air trapping, severe diffusion impairment with increased airway resistance. No bronchodilator was given. PFTs suggest emphysema. 03/11/2021-[facility] CTA chest-multiple pulmonary emboli, predominantly in segmental level pulmonary arteries in the left upper lobe, right upper lobe, right lower lobe; stable pulmonary nodule/opacities. 04/16/2023; [facility] Lipids-total cholesterol 150, HDL 72, triglycerides 76, LDL 63. 12/03/2024 PHYSICAL EXAM Vitals BP 130/76 (BP Location: Left arm, Patient Position: Sitting) Pulse 78 Ht 160 cm (5' 3 ) Wt 46.7 kg (103 lb) SpO2 95% BMI 18.25 kg/m?? General appearance - thin appearing female, alert, no distress, oriented to time, place, person Mental status - flat affect Eyes - extraocular eye movements intact, no pallor Ears - external ears appear normal, hearing grossly normal Nose - normal and patent, no discharge Mouth - mucous membranes moist, tongue normal Neck - supple, no bruits, no JVD Chest - decreased breath sounds globally Heart - normal rate, regular rhythm, normal S1, S2 Abdomen - soft, nontender, nondistended Neurological - alert, oriented, normal speech, no gross motor deficits Musculoskeletal - no major deformity, no amputations Extremities - no pedal edema, no clubbing or cyanosis Skin - no rashes (on the exposed areas), no cyanosis ASSESSMENT Diagnoses and all orders for this visit: 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 female with CAD, history of inferior ST-elevation AZ, status post PCI/stenting of RCA in November 2010(intervention report not available); status post CABG x2 with FREEDMAN to LAD, SVG to diagonal branch in September 2017 at [place], [place] (operative report not available), history of pulm onary embolism (CT chest 04/19/2023); history of heavy tobacco abuse. -patient has chronic dyspnea on exertion, which is secondary to underlying COPD/emphysema light of her longstanding history of smoking, and previous pulmonary embolism. Currently on anticoagulation with apixaban. Patient advised to continue to follow-up with pulmonology. -stable CAD. Aspirin has been put on hold due to patient being on anticoagulation at this time due to concerns for bleeding. Current LDL 63, target LDL less than 55. Change simvastatin to rosuvastatin. Repeat lipid panel on follow-up visit. Echo with Doppler to reassess LV/RV function. - patient was advised to continue to abstain from smoking. -follow-up with oncology for management of CA lung. - counseling was done for heart healthy diet, aerobic exercise as tolerated. Medication compliance. RTC 12-14 months or sooner if needed. Adarsh Coreas MD 03/08/22 Voice recognition software was used to complete this document, therefore, referral nurse variances may occur. 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 Expected: 02/11/2025, Expires: 12/03/2025 documented as of this encounter Procedures Procedure Name Priority Date/Time Associated Diagnosis Comments POCT LIPID PANEL Routine 12/03/2024 9:47 AM CDT 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 documented in this encounter Results * POCT lipid panel (12/03/2024 9:47 AM CDT) Cholesterol, POC 150 mg/dL HDL, POC 72 mg/dL Triglycerides, POC 76 mg/dL LDL Cholesterol POC 63 mg/dL Chol/HDL Ratio, POC 0.9 Non-HDL Cholesterol, POC 78 mg/dL Cholesterol Total, POC 150 mg/dL Capillary blood 12/03/2024 9 :47 AM CDT Adarsh Coreas MD POINT OF CARE TEST ORDERABLES Fi nal Result documented in this encounter Visit Diagnoses Diagnosis 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- Primary Status post angioplasty with stent Postsurgical percutaneous transluminal coronary angioplasty status S/P CABG x 2 Postsurgical aortocoronary bypass status History of pulmonary embolism Personal history of venous thrombosis and embolism Chronic anticoagulation Encounter for long-term (current) use of anticoagulants Pulmonary emphysema, unspecified emphysema type (HCC) Tobacco abuse, in remission Personal history of tobacco use, presenting hazards to health documented in this encounter Discontinued Medications Medication Sig Discontinue Reason Start Date End Da te simvastatin (ZOCOR) 10 mg tablet TAKE 1 TABLET BY MOUTH AT NIGHT Alternate therapy 09/26/2022 12/03/2024 documented as of this encounter Historical Medications * This list may reflect changes made after this encounter. albuterol HFA (PROVENTIL HFA,VENTOLIN HFA,PROAIR HFA) 90 mcg/actuation inhaler INHALE 2 PUFFS EVERY 4 HOURS NEEDED FOR WHEEZE OR FOR SHORTNESS OF BREATH 09/25/2024 added in this encounter Care Teams Tooth Polisher Relationship Specialty Start Date End Date Kiesha Vu MD PCP - General Family Medicine 05/23/23 Tanisha Martínez MD Family Practice 05/14/20 documented as of this encounter
--- OUTSIDE RECORDS SUMMARY | 2024-12-03 17:43 | XMS_ITS | Encounter Summary ---
Author Organization [facility] [place] Address [address] [place] [address] Care Team Providers Care Broke Handler Name Role Phone Kiesha Vu MD Primary Care Provider [phone] Encounter Details Date Type Department Care Team (Late Contact Info) Description 12/01/2024 Orders Only [facility] Oncology and Hematology [facility] [address] [place] [address] Daniel Suarez MD [address] [place], [place] [address] [address] [place] [phone] Social History Tobacco Use Types Packs/Day Years Used Date Smoking Tobacco: Former Smokeless Tobacco: Never Comments Unknown Sex and Gender Information Value Date Recorded Sex Assigned at Not on file 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 Gender Identity Not on file Sexual Orientation Not on file documented as of this encounter Plan of Treatment Upcoming Encounters Date Type Department Care Team (Late Contact Info) Description 12/18/2024 4:00 PM CDT Telephone Check Up [facility] Oncology and Hematology [facility] [address] [place] [address] Daniel Suarez MD [facility] [address] [place] [phone] documented as of this encounter Procedures Procedure Name Priority Date/Time Associated Diagnosis Comments CBC WITH AUTODIFFERENTIAL Routine 2024 3:49 PM CDT documented in this encounter Results * CBC WITH AUTODIFFERENTIAL (12/01/2024 3:49 PM CDT) Blood us Daniel Suarez MD HEMATOLOGY ORDERABLES Final Res ult documented in this encounter Visit Diagnoses Not on filedocumented in this encounter Care Teams Broke Handler Relationship Specialty Start Date End Date Kiesha Vu MD [address] [place] [phone] PCP - General Family Practice 12/06/22 documented as of this encounter
--- OUTSIDE RECORDS SUMMARY | 2024-12-03 17:43 | XMS_ITS | Clinical Summary ---
Author Organization [facility] Address [address] [place] [phone] Care Team Providers Care Rehabilitation Psychologist Name Role Phone Tanisha Martínez MD Unavailable [phone] Kiesha Vu MD Primary Care Provider [phone] Allergies Active Allergy Reactions Criticality Noted Date [...] Diagnosed Date Coronary artery disease invo lving lower brule coronary artery of [place] heart without angina pectoris 03/21/2017 Assessment & [...] therapy with good control. No changes made. Encounters Date Type Department Care Team Description 12/03/2024 11:00 AM CDT Office Visit [facility] Cardiology [address] [place] [address] Adarsh Coreas MD Coronary artery disease involving lower b[place] coronary artery of lower [place] heart without angina pectoris (Primary Dx); Status post angioplasty with stent; S/P CABG x 2; History of pulmonary embolism; Chronic anticoagulation; Pulmonary emphysema, unspecified emphysema type (HCC); Tobacco abuse, in remission from Last 3 Months Surgical History Surgery Date Site/Laterality Comments BLADDER [...] on file 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 Gender Identity Not on file Sexual Orientation [...] 12/03/2024 10:51 AM CDT Plan of Treatment Health Maintenance Due Date Last Done Comments Depression Screening 1940 Fall Risk Assessment 1940 Osteoporosis Screening-Bone Density Scan 1940 DTaP/Tdap/Td Vaccine (1 - Tdap) 1950 Hepatitis B Screening 1957 Zoster Vaccine (1 of 2) 1989 Well Visit 65+ 01/24/2004 Influenza Vaccine (#1) 2024 0, 08/29/2019, 06/18/2018 Pneumococcal vaccine 65+ Completed 08/29/2019, 05/26 Procedures Procedure Name Priority Date/Time Associated Diagnosis Comments POCT LIPID PANEL Routine 12/03/2024 9:47 AM CDT Coronary artery disease involving lower b[place] coronary artery of lower [place] heart without angina pectoris from Last 3 [...] Result from Last 3 Months Insurance MEDICARE AETNA SENIOR SUPPLEMENT MEDICARE AETNA SENIOR SUPPLEMENT Advance Directives For more information, please contact: [phone] Documents on File Type Date Recorded Patient Tool Specialist Expl anation Power of Senior Linux Unix Engineer 05/23/2023 1:40 PM Care Teams Rehabilitation Psychologist Relationship Specialty Start Date End Date Kiesha Vu MD PCP - General Family Medicine 05/23/23 Tanisha Martínez MD Family Practice 05/14/20
--- OUTSIDE RECORDS SUMMARY | 2024-12-03 18:47 | XMS_ITS | Referral Summary ---
Author Organization [facility] Address [address] [place] [address] Care Team Providers Care Director Of Vocational Training Name Role Phone Tanisha Martínez MD Unavailable [phone] Kiesha Vu MD Primary Care Provider [phone] Encounters Date Type Department Care Team Description 12/03/2024 11:00 AM CDT Office Visit [facility] Cardiology [address] [facility] [address] [place] [address] Adarsh Coreas MD Coronary artery disease involving nightm[place] coronary artery of nightm[place] heart without angina pectoris (Primary Dx); Status [...] Diagnosed Date Coronary artery disease invo lving nightm[place] coronary artery of nightm[place] heart without angina pectoris 03/21/2017 Assessment & [...] on file 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
--- OUTSIDE RECORDS SUMMARY | 2024-12-03 18:47 | XMS_ITS | Clinical Summary ---
Author Organization [facility] Address [facility] [place] [address] Care Team Providers Care Feed Blender Name Role Phone Amy Cici Díaz Primary [...] to complete this topic [place] [address] Care Teams Feed Blender Relationship Specialty Start Date End Date Amy Cici Díaz PA [address] [place], [place] [id number] PCP - General Physician Remediation Project Engineer Medical 06/03/24
--- OUTSIDE RECORDS SUMMARY | 2024-12-03 18:47 | XMS_ITS | Encounter Summary ---
Author Organization [facility] [employer] Address [address] [place] [address] Care Team Providers Care Casing Tester Name Role Phone Kiesha Vu MD Primary Care Provider [phone] Encounter Details Date Type Department Care Team (Late Contact Info) Description 12/01/2024 Orders Only [facility] Oncology and Hematology [facility] [address] [place] [address] Daniel Suarez MD [address] [place], [place] [address] [address] [place] [address] Social History Tobacco Use Types Packs/Day Years Used Date Smoking Tobacco: Former Smokeless Tobacco: Never Comments Unknown Sex and Gender Information Value Date Recorded Sex Assigned at Not on file 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 Gender Identity Not on file Sexual Orientation Not on file documented as of this encounter Plan of Treatment Upcoming Encounters Date Type Department Care Team (Late Contact Info) Description 12/18/2024 4:00 PM CDT Telephone Check Up [facility] Oncology and Hematology [facility] [address] [place] [address] Daniel Suarez MD [facility] [address] [place] [phone] documented as of this encounter Procedures Procedure Name Priority Date/Time Associated Diagnosis Comments CBC WITH AUTODIFFERENTIAL Routine 2024 3:49 PM CDT documented in this encounter Results * CBC WITH AUTODIFFERENTIAL (12/01/2024 3:49 PM CDT) Blood us Daniel Suarez MD HEMATOLOGY ORDERABLES Final Res ult documented in this encounter Visit Diagnoses Not on filedocumented in this encounter Care Teams Casing Tester Relationship Specialty Start Date End Date Kiesha Vu MD [address] [place] [phone] PCP - General Family Practice 12/06/22 documented as of this encounter
--- OUTSIDE RECORDS SUMMARY | 2024-12-03 18:47 | XMS_ITS | Clinical Summary ---
Author Organization [facility] Address [address] [place] [address] Care Team Providers Care Surveyor Geodetic Name Role Phone Tanisha Martínez MD Unavailable [phone] Kiesha Vu MD Primary Care Provider [phone] Allergies Active Allergy Reactions Criticality Noted Date [...] Diagnosed Date Coronary artery disease invo lving [place] coronary artery of [place] heart without angina pectoris 03/21/2017 Assessment & [...] Description 12/03/2024 11:00 AM CDT Office Visit [facility] Cardiology [address] [place] [address] Adarsh Coreas MD Coronary artery disease involving [place] coronary artery of [place] heart without angina pectoris (Primary Dx); Status [...] on file 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
--- OUTSIDE RECORDS SUMMARY | 2024-12-03 18:47 | XMS_ITS | Clinical Summary ---
Author Organization [facility] Suzanne campos [facility] Address [address] [facility] [place] [address] Care Team Providers Care Heading Saw Operator Name Role Phone Kiesha Vu MD Primary Care Provider [phone] Allergies Active Allergy Reactions Criticality Noted Date [...] CDT Office Visit [facility] Oncology and Hematology [facility] [address] [place] [address] Daniel Suarez MD Malignant neoplasm of lower lobe of right lung (CMS/HCC) (Primary Dx) 12/01/2024 Orders Only [facility] Oncology and Hematology [facility] [address] [facility] [place] [address] Daniel Suarez MD 12/01/2024 Abstract [facility] Oncology and Hematology [facility] [address] [place] [address] Daniel Suarez MD 11/29/2024 External Device Data STL ABSTRACTION Provider, Abstract 11/28/2024 External Device Data STL ABSTRACTION Provider, Abstract 11/25/2024 Orders Only [facility] Oncology and Hematology - [place] [address] [place] [address] Daniel Suarez MD 11/12/2024 External [...] on file Legal 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 Gender Identity Not on file Sexual Orientation [...] Telephone Check Up [facility] Oncology and Hematology - [place] [address] [place] [address] Daniel Suarez MD [address] [facility] [address] [place] [address] Health Maintenance Due Date Last [...] W CONTRAST Routine 11/24/2024 1 0:34 AM CLOTH PRINTING INSPECTOR from Last 3 Months Results * CBC WITH AUTODIFFERENTIAL (12/01/2024 3:49 PM CDT) Blood Daniel Suarez MD HEMATOLOGY ORDERABLES Final Res ult * CT CHEST W CONTRAST (11/24/2024 10:34 AM CLOTH PRINTING INSPECTOR) Anatomical Region Laterality Modality Chest Other Daniel Suarez MD CT ORDERABLES Final Result from Last 3 Months Insurance MEDICARE PART A AND B AETNA MEDICARE SUPP AESSI Advance Directives For more information, please contact: [phone] Documents on File Type Date Recorded Patient Delivery Room Clerk Expl anation Advance Directive POA 10/17/2023 10:34 AM Advance Directive POA Care Teams Heading Saw Operator Relationship Specialty Start Date End Date Kiesha Vu MD [address] [place] [address] PCP - General Family Practice 12/06/22
--- OUTSIDE RECORDS SUMMARY | 2024-12-03 18:47 | XMS_ITS | Encounter Summary ---
Author Organization [facility] Address [address] [place] [address] Care Team Providers Care Alloy Weigher Name Role Phone Tanisha Martínez MD Unavailable [phone] Kiesha Vu MD Primary Care Provider [phone] Reason for Referral * Cardiology (Routine) - Authorized Specialty Diagnoses / Procedures Referred By Contac t Referred To Contact Diagnoses Coronary artery disease involving [place] coronary artery of [place] heart without angina pectoris Procedures Transthoracic Echo (TTE) Complete W Doppler/CF Adarsh Coreas MD [address] [place] [address] Phone: tel: fax: [facility] Cardiology [address] [place] [address] Phone: tel: fax: Referral ID Status Reason Start Date Expiration Date V isits Requested Visits Authorized [id number] Authorized 12/03/2024 01/02/2026 1 1 Reason for Visit * Reason Comments Follow-up 1 year follow up Encounter Details Date Type Department Care Team (Late st Contact Info) Description 12/03/2024 11:00 AM CDT Office Visit [facility] Cardiology [address] [facility] [address] [place] [address] Adarsh Coreas MD [address] [place] [address] Coronary artery disease involving [place] coronary artery of [place] heart without angina pectoris (Primary Dx); Status [...] on file Legal Sex Female 10:09 AM QUALITY CONTROL LEAD Gender Identity Not on file Sexual Orientation [...] female with CAD, history of inferior ST-elevation VT, status post PCI/stenting of RCA in November 2010-intervention report not available; status post CABG x2 with FREEDMAN to LAD, SVG to diagonal branch in September 2017 at [place], [place] (operative report not available), tobacco abuse. 08/25/2020 initial evaluation-patient is here to reestablish cardiovascular care. She used to follow up with Dr. Lovett over the years for her cardiac care. Due to distance, patient wants to followup locally. She is accompanied by her . Patient has known CAD, and history of PCI/stenting of RCA in the setting of VT. Intervention reportnot available. She states that she was diagnosed with non ST- elevation VT in September 2017 while [place]was in [place], and had CABG x2 in [facility]. After surgical revascularization, patient didnot have any recurrent anginal chest pain. She did have an episode of diaphoresis in April 2020 without recurrence. At present, patient denies angina. She has dyspnea on xzfb-cx-pkolhkfh exertion, which is chronic in nature. No [...] for the follow-up visit accompanied by her hqibhkcb-vj-dbc. She was recently admitted to [facility] on 04/20/2023 with worsening shortness of breath. She was found to have acute PE, and treated with anticoagulation. She is currently on apixaban. She reports improvement in his shortness of breath. No chest pain. Reports compliance with current medical regimen. Patient is currently undergoing bereavement due to passing of her recently. 11/28/2023-patient is here for the follow-up visit accompanied by her pgkmgocl-gy-ljv. She is baseline dyspnea on mild exertion. No recent worsening. Denies angina. Reports compliance with current medical regimen. No bleeding complications. 12/03/2024-patient is here for the follow-up visit accompanied by her troewesc-lc-odf. She has chronic dyspnea on exertion, able to walk about half a block before she gets short of breath. No chest pain. No palpitation, dizziness or syncope. Patient is on chronic anticoagulation with apixaban, no overt bleeding complications. MEDICAL HISTORY she has a past medical history of Arthritis, Heart attack (CMS/HCC) (HCC), and Wears dentures. VT she has a past surgical history that [...] ischemia and a normal ejection fraction. March [id number]. [place] note Lipids-total cholesterol 146, HDL 50, [...] No bronchodilator was given. PFTs suggest emphysema. 03/11/2021-[facility] CTA chest-multiple pulmonary emboli, predominantly in segmental level pulmonary arteries in the left upper lobe, right upper lobe, right lower lobe; stable pulmonary nodule/opacities. 04/16/2023; [facility] Lipids-total cholesterol 150, HDL 72, triglycerides 76, [...] for this visit: Coronary artery disease involving [place] coronary artery of [place] heart without angina pectoris (Primary) History of VT (myocardial infarction) Status post angioplasty with stent S/P CABG x 2 REESE (dyspnea on exertion) Pulmonary emphysema, unspecified emphysema type (HCC) Tobacco abuse, in remission PLAN/RECOMMENDATIONS 84 y.o. female with CAD, history of inferior ST-elevation [place], status post PCI/stenting of RCA in November 2010(intervention report not available); status post CABG x2 with FREEDMAN to LAD, SVG to diagonal branch in September 2017 at [place], [place] (operative report not available), history of [...] was used to complete this document, therefore, powderer variances may occur. documented in this encounter Miscellaneous Notes * Addendum Note - Irene Marr MA - 12/03/2024 11:00 AM CDTAddended by: IRENE MARR on: 12/03/2024 11:21 AM Modules accepted: Orders documented in this encounter Plan of Treatment Scheduled Orders Name Type Priority Associated Diagnoses Order Schedule Transthoracic Echo (TTE) Complete W Doppler/CF Echocardiography Routine Coronary artery disease involving [place] coronary artery of [place] heart without angina pectoris Expected: 02/11/2025, Expires: 12/03/2025 documented as of this encounter Procedures Procedure Name Priority Date/Time Associated Diagnosis Comments POCT LIPID PANEL Routine 12/03/2024 9:47 AM CDT Coronary artery disease involving [place] coronary artery of [place] heart without angina pectoris documented in this [...] Visit Diagnoses Diagnosis Coronary artery disease involving [place] coronary artery of [place] heart without angina pectoris- Primary Status post [...] 09/25/2024 added in this encounter Care Teams Alloy Weigher Relationship Specialty Start Date End Date Kiesha Vu MD PCP - General Family Medicine 05/23/23 Tanisha Martínez MD Family Practice 05/14/20 documented as of this encounter
--- OUTSIDE RECORDS SUMMARY | 2024-12-03 18:47 | XMS_ITS | Encounter Summary ---
Author Organization [facility] Address 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 Gender Identity Not on file Sexual Orientation Not on file documented as of this encounter Plan of Treatment Upcoming Encounters Date Type Department Care Team (Late st Contact Info) Description 12/18/2024 4:00 PM CDT Telephone Check Up [facility] Oncology and Hematology - [place] [address] [place] [address] [place] [address] [place] [address] documented as of this encounter Visit Diagnoses Not on filedocumented in this encounter Care Teams Chief Station Engineer Relationship Specialty Start Date End Date Kiesha Vu MD [address] [place] [address] PCP - General Family Practice 12/06/22 documented as of this encounter
[2024-12-03 18:59] LABS: Basophils Absolute Auto 0.1 K/mm3 (0.0-0.1); Basophils Percent Auto 1.3 % (0.2-1.2); Eosinophils Absolute Auto 0.3 K/mm3 (0-0.3); Eosinophils Percent Auto 4.3 % (0-4.4); Hemoglobin 12.4 g/dL (12.0-15.0); Immature Granulocyte Absolute 0.03 K/mm3 (0.00-0.031); Immature Granulocyte Percent A 0.4 % (0-0.5); Lymphocytes Absolute Auto 1.52 K/mm3 (0.9-3.2); Lymphocytes Percent Auto 20.5 % (18.3-44.2); Mean Corpuscular HGB Conc 31.8 g/dl (32-36); Mean Corpuscular Hemoglobin 30.2 pg (26-34); Mean Corpuscular Volume 94.9 fl (80-100); Mean Platelet Volume 9.3 fl (7.4-10.4); Monocytes Absolute Auto 0.6 K/mm3 (0.1-0.6); Monocytes Percent Auto 8.6 % (2.6-8.5); Neutrophils Absolute Auto 4.8 K/mm3 (1.3-6.7); Neutrophils Percent Auto 64.9 % (45.5-73.1); Platelet Count Result 218 k/mm3 (150-375); Red Blood Count 4.11 M/mm3 (4.2-5.4); Red Cell Distribution Width 14.3 % (11.5-14.5); White Blood Count 7.4 K/mm3 (4.5-10.0)
[2024-12-03 19:09] LABS: Alanine Aminotransferase 15 U/L (6-35); Albumin Level 4.1 g/dL (3.5-5.1); Alkaline Phosphatase 73 U/L (38-126); Anion Gap 11 mmol/L (4-12); Aspartate Amino Transferase 22 U/L (14-36); Bilirubin,Total 0.5 mg/dL (0.2-1.3); Blood Urea Nitrogen 24 mg/dL (7-17); Calcium 9.3 mg/dL (8.4-10.2); Carbon Dioxide 23 mmol/L (22-30); Chloride 105 mmol/L (98-107); Estimated CRCL calculation 25 ml/min; Estimated Glomerular Filt Rate 50; Glucose 105 mg/dL (65-110); INR 1.1; Partial Thromboplastin Time 23.7 Seconds (22.3-36.8); Potassium 4.3 mmol/L (3.4-5.0); Sodium 139 mmol/L (137-145)
[2024-12-03 19:24] LABS: NT Pro B Type Natriuretic Pept 1900 pg/mL (19.9-100); Troponin I < 0.012 ng/mL (0.000-0.034)
--- NOTE | 2024-12-03 19:25 | PC.NURSE ---
Assumed care of pt after receiving report from CHRISTIAN Watts @ [phone]
[2024-12-03] MEDS: IPRATROPIUM BR 0.02% INH SOLN 0.5 MG/2.5 ML VIAL 1 MG INHALATION (19:33)
[2024-12-03] MEDS: ALBUTEROL SULFATE NEB 2.5 MG/3 ML INH 10 MG INHALATION (19:33)
[2024-12-03 19:34] LABS: Influenza A QL RT-PCR Negative (Negative); Influenza B QL RT-PCR Negative (Negative); RSV RNA, RT-PCR Negative (Negative); SARS-CoV-2 RNA PCR Negative (Negative)
[2024-12-03] MEDS: MAGNESIUM SULF 1 GM/D5W 100 ML 1 GM/100 ML BAG IVPB (19:38)
[2024-12-03] MEDS: methylPREDNISolone SOD SUCC 125 MG VIAL IV PUSH (19:38)
== END 2024-12-03 21:30 | disposition home or self-care (01) ==
PROVIDERS: Physician Assistant; Emergency Provider Physician Assistant; PCP Family Medicine
DX: J44.1 Chronic obstructive pulmonary disease with (acute) exacerbation (principal); I25.10 Atherosclerotic heart disease of native coronary artery without angina pectoris; I10 Essential (primary) hypertension; E78.5 Hyperlipidemia, unspecified; K21.9 Gastro-esophageal reflux disease without esophagitis; Z95.1 Presence of aortocoronary bypass graft; Z86.0100 Personal history of colon polyps, unspecified; Z87.891 Personal history of nicotine dependence; Z98.49 Cataract extraction status, unspecified eye; Z90.710 Acquired absence of both cervix and uterus
CPT/HCPCS: 36415; 71046; 80053; 83735; 83880; 84484; 85025; 85610; 85730; 87637; 93005; 94640; 96365; 96375; 99284; J2919; J3475

== ENCOUNTER 2024-12-09 10:12 | Outpatient (CLI) | payer MEDICARE, SELFPAY ==
--- OUTSIDE RECORDS SUMMARY | 2024-12-09 11:33 | XMS_ITS | Clinical Summary ---
Author Organization [facility] Address [facility] [place] [address] Care Team Providers Care Livestock Farmers Name Role Phone Amy Cici Díaz Primary [...] to complete this topic [place] [address] Care Teams Livestock Farmers Relationship Specialty Start Date End Date Amy Cici Díaz PA [address] [place], [place] [id number] PCP - General Physician Control Cabinet Assembler Medical 06/03/24
--- OUTSIDE RECORDS SUMMARY | 2024-12-09 11:33 | XMS_ITS | Clinical Summary ---
Author Organization [facility] Address [address] [place] [address] Care Team Providers Care Material Inspector Name Role Phone Tanisha Martínez MD Unavailable [phone] Kiesha Vu MD Primary Care Provider [phone] Allergies Active Allergy Reactions Criticality Noted Date [...] Diagnosed Date Coronary artery disease invo lving [place] coronary artery of [place] heart without angina pectoris 03/21/2017 Assessment & [...] Description 12/03/2024 11:00 AM CDT Office Visit 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
--- OUTSIDE RECORDS SUMMARY | 2024-12-09 11:33 | XMS_ITS | Referral Summary ---
Author Organization [facility] Address [address] [place] [address] Care Team Providers Care Cmv Driver Name Role Phone Tanisha Martínez MD Unavailable [phone] Kiesha Vu MD Primary Care Provider [phone] Encounters Date Type Department Care Team Description 12/03/2024 11:00 AM CDT Office Visit [facility] Cardiology [address] [facility] [address] [place] [address] Adarsh Coreas MD Coronary artery disease involving [place] coronary artery of [place] heart without angina pectoris (Primary Dx); Status [...] Diagnosed Date Coronary artery disease invo lving [place] coronary artery of [place] heart without angina pectoris 03/21/2017 Assessment & [...] on file Legal 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 Female 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 Gender Identity Not on file Sexual Orientation [...] 9:47 AM CDT Coronary artery disease involving [place] coronary artery of [place] heart without angina pectoris from Last 3 Months Results * POCT lipid panel (12/03/2024 9:47 AM CDT) Cholesterol, POC 150 mg/dL HDL, POC 72 mg/dL Triglycerides, POC 76 mg/dL LDL Cholesterol POC 63 mg/dL Chol/HDL Ratio, POC 0.9 Non-HDL Cholesterol, POC 78 mg/dL Cholesterol Total, POC 150 mg/dL Capillary blood 12/03/2024 9 :47 AM CDT Adrash Coreas MD POINT OF CARE TEST ORDERABLES Fi nal Result from Last 3 Months Insurance MEDICARE AET SENIOR SUPPLEMENT MEDICARE AETNA SENIOR SUPPLEMENT Advance Directives For more information, please contact: [phone] Documents on File Type Date Recorded Patient Bakelite Molder Expl anation Power of Track And Field Coach 05/23/2023 1:40 PM Care Teams Cmv Driver Relationship Specialty Start Date End Date Kiesha Vu MD PCP - General Family Medicine 05/23/23 Tanisha Martínez MD Family Practice 05/14/20
--- OUTSIDE RECORDS SUMMARY | 2024-12-09 11:33 | XMS_ITS | Clinical Summary ---
Author Organization [facility] Suzanne campos [facility] Address [address] [facility] [place] [address] Care Team Providers Care Radiation Oncology Manager Name Role Phone Kiesha Vu MD Primary Care Provider Allergies Active Allergy Reactions Criticality Noted Date [...] Description 12/01/2024 11:00 AM CDT Office Visit [facility] Oncology and Hematology [facility] [address] [place] [address] Daniel Suarez MD Malignant neoplasm of lower lobe of right lung (CMS/HCC) (Primary Dx) 12/01/2024 Orders Only [facility] Oncology and Hematology [facility] [address] [facility] [place] [address] Daniel Suarez MD 12/01/2024 Abstract [facility] Oncology and Hematology [facility] [address] [place] [address] Daniel Suarez MD 11/29/2024 External Device Data STL ABSTRACTION Provider, Abstract 11/28/2024 External Device Data STL ABSTRACTION Provider, Abstract 11/25/2024 Orders Only [facility] Oncology and Hematology - [place] [address] [place] [address] Daniel Suarez MD 11/12/2024 External [...] on file Legal Sex Female 1:58 PM ANIMAL DAMAGE CONTROL AGENT Gender Identity Not on file Sexual [...] 12/18/2024 4:00 PM CDT Telephone Check Up [facility] Oncology and Hematology - [place] [address] [place] [address] Daniel Suarez MD [address] [facility] [address] [place] [address] Health Maintenance Due Date Last [...] W CONTRAST Routine 11/24/2024 1 0:34 AM ANIMAL DAMAGE CONTROL AGENT from Last 3 Months Results * CBC WITH AUTODIFFERENTIAL (12/01/2024 3:49 PM CDT) Blood Daniel Suarez MD HEMATOLOGY ORDERABLES Final Res ult * CT CHEST W CONTRAST (11/24/2024 10:34 AM ANIMAL DAMAGE CONTROL AGENT) Anatomical Region Laterality Modality Chest Other Daniel Suarez MD CT ORDERABLES Final Result from Last 3 Months Insurance MEDICARE PART A AND B AETNA MEDICARE SUPP AESSI Advance Directives For more information, please contact: [phone] Documents on File Type Date Recorded Patient Metal Grader Expl anation Advance Directive POA 10/17/2023 10:34 AM Advance Directive POA Care Teams Radiation Oncology Manager Relationship Specialty Start Date End Date Kiesha Vu MD [address] [place] [address] PCP - General Family Practice 12/06/22
--- NOTE | 2024-12-09 12:33 | WPDPFTINT ---
PFT Procedure Performed PFT Procedure Performed Spirometry with Pre/Post Bronchodilator Plethysmography (Lung Vol) Diffusing Cap (DLCO) Flow Vol Loop PFT Interpretation Lung volumes are unremarkable. Spirometry showed diminished expiratory flow rates and a diminished FEV1 to FVC ratio 47%, consistent with obstructive airway disease. Following administration of bronchodilator there was significant increase in FEV1. Lung diffusion capacity is severely reduced at 31% predicted. This diminished lung diffusion capacity coupled with a low alveolar volume and a low DLCO/VA ratio indicates loss of alveolar capillary stricture with loss of lung volume as seen in emphysema or interstitial lung disease. The flow-volume loop is consistent with obstructive airway disease. Impression: Moderately severe obstructive airway disease with significant response to bronchodilators on this testing. Severely reduced lung diffusion capacity.
--- NOTE | 2024-12-09 12:36 | WPDSIXMINUTE ---
Six Minute Walk Procedure Procedure Performed Pulmonary Stress Test (6 min walk) Six Minute Walk Six Minute Walk: This 6 minute walk test was carried out with the patient breathing ambient air. The pre-walk baseline oxyhemoglobin saturation was 95%. The patient walked 213 m with no stops during testing. During the walk the oxyhemoglobin saturation remained in the range 94% to 95%. Of note the patient during testing used a wheeled walker for stability. Impression: No evidence of oxyhemoglobin desaturation on this testing.
== END 2024-12-09 10:13 | disposition home or self-care (01) ==
PROVIDERS: PCP Family Medicine; Visit Provider Internal Medicine Pulmonary Disease
DX: J44.9 Chronic obstructive pulmonary disease, unspecified (principal); I26.99 Other pulmonary embolism without acute cor pulmonale; C34.31 Malignant neoplasm of lower lobe, right bronchus or lung
CPT/HCPCS: 94060; 94618; 94726; 94729

== ENCOUNTER 2024-12-11 10:39 | Outpatient (CLI) | payer MEDICARE, SELFPAY ==
--- NOTE | ~2024-12-11 | PE_ITS ---
EXAMINATION: PET skull to mid thigh DATE: 12/11/2024 12:26 INDICATION: Right lower lung cancer TECHNIQUE: Blood glucose level was 84 mg/dL. 10.697 mCi of 18-fluorodeoxyglucose (18-FDG) was adminis tered i.v. Low dose computed tomography (CT) images were acquired from the base of the brain to the p roximal thighs for attenuation correction and anatomic localization. Positron emission tomography (PE T) images were acquired in the same distribution beginning 58 minutes after injection. Images includi ng fused PET/CT images were reconstructed in axial, coronal, and sagittal planes. Automated exposure control technique was employed. The dose-length product was 4289.80mGy-cm. COMPARISON: PET/CT dated 12/19/[address] dated 11/24/2024 05/23/2024 FINDINGS: Head/neck: There is symmetric increased activity in the oral cavity, palatine tonsils, laryngeal muscles and ocu lar muscles without CT correlate, likely physiologic. No pathologically enlarged cervical lymphadenop athy or suspicious foci of increased FDG uptake in the visualized head or neck. Chest: Moderate emphysema. Again seen are multiple scattered small calcified pulmonary nodules along with ca lcified bilateral hilar and mediastinal lymph nodes consistent with old granulomatous disease. In the intersegment right upper lobe is a small region of linear atelectasis/scarring within linear configu ration best evident on sagittal reformatted imaging is located at the site of a prior 2.4 x 1.7 cm pr ominently FDG avid right upper lobe nodule which is without evident FDG uptake in the current study. There is minimal FDG activity along a band of mild pleural thickening at the periphery of this region of likely scarring. There is a second tiny linear subpleural density without evident FDG activity in the lateral left lower lobe at the site of a prior 8 mm FDG avid pulmonary nodule. At the anterobasi lar right lower lobe there is a chronic bandlike opacity which on the current study measures approxim ately 4 cm medial collateral and 2.7 x 1.3 cm in maximal orthogonal dimensions on sagittal reformatte d images with only mild FDG activity with maximal SUV of 2.7 associated with this opacity. This is si gnificantly decreased in size since the most recent CT from 11/24/2024 at which time the lesion extends approximately 7 cm medial to lateral and measured 3.2 x 1.6 cm in maximal orthogonal dimensions. The chronologic progression with relatively rapid reason improvement and absence of significant increase d FDG uptake suggests that this represents chronic atelectasis/scarring with improvement in a likely recent superimposed pneumonia. No other suspicious pulmonary nodules or abnormally FDG avid pulmonary lesions identified. Cardiomegaly. Atherosclerotic coronary artery calcific lesion. Chronic increased FDG uptake along a left anterior descending coronary artery stent. There is mild uptake with maximal SUV of 3.4 so she with a small precarinal lymph node which likely reactive. No pathologically enlarg ed or concerning FDG avid thoracic lymphadenopathy. Abdomen/pelvis/proximal thighs: Physiologic renal accumulation and excretion of FDG activity in the kidneys, bladder and along portio ns of ureters. Normal degree and heterogenous pattern of increased uptake throughout the liver withou t radiologic correlate or dominant FDG avid lesion. The gallbladder, pancreas, spleen and bilateral a drenal glands are normal. Mild uptake scattered throughout the bowels without radiologic correlate, a lso likely physiologic. Small segment of nonobstructed colon at the junction of the descending and si gmoid colon extends into a small left inguinal hernia. There is mild sigmoid diverticulosis without e vidence of diverticulitis. Portions of the right inferior pelvis are obscured by dense metallic strea k artifact related to a right hip arthroplasty. No other abnormal foci of increased FDG uptake or pat hologically enlarged lymphadenopathy in the abdomen, pelvis or proximal thighs. Musculoskeletal: Thoracic kyphosis with chronic moderate severity T9 and T10 compression fractures. Moderate cervical, thoracic and lumbar spondylosis. No suspicious lytic, blastic or abnormally FDG avid bone lesions. IMPRESSION: 1. No significant residual increased FDG uptake associated with the previously seen nodules in the ri ght upper and left lower lobes which could represent response to treatment of prior malignancy althou gh patient provides no corresponding history and skull to represent residual scarring related to srinivasa ier infection/inflammation. 2. Return to near baseline of a bandlike opacity at the anterobasilar right lower lobe with only mild FDG uptake and with significant decrease since relatively recent prior chest CT. The pattern of evol ution would be most consistent with resolving pneumonia superimposed over chronic atelectasis/scarrin g. 2. No other new or FDG avid lesions concerning for malignancy/metastatic disease. Reviewed, dictated and finalized at location A. IMPRESSION: 1. No significant residual increased FDG uptake associated with the previously seen nodules in the right upper and left lower lobes which could represent resp onse to treatment of prior malignancy although patient provides no correspondin g history and skull to represent residual scarring related to earlier infection /inflammation. 2. Return to near baseline of a bandlike opacity at the anterobasilar right low er lobe with only mild FDG uptake and with significant decrease since relativel y recent prior chest CT. The pattern of evolution would be most consistent with resolving pneumonia superimposed over chronic atelectasis/scarring. 2. No other new or FDG avid lesions concerning for malignancy/metastatic diseas e.
[2024-12-11 10:56] LABS: Glucose Point of Care 84 mg/dl (65-105)
--- OUTSIDE RECORDS SUMMARY | 2024-12-11 11:29 | XMS_ITS | Clinical Summary ---
Author Organization [facility] Suzanne campos [facility] Address [address] [place] [address] Care Team Providers Care Emergency Medicine Nurse Practitioner Name Role Phone Kiesha Vu MD Primary Care Provider [phone] Allergies Active Allergy Reactions Criticality Noted Date [...] Encounters Date Type Department Care Team Description 12/10/2024 External Device Data STL ABSTRACTION Provider, Abstract 12/10/2024 External Device Data STL ABSTRACTION Provider, Abstract 12/01/2024 11:00 AM CDT Office Visit [facility] Oncology and Hematology - [place] [address] [place] [address] Daniel Suarez MD Malignant neoplasm of lower lobe of right lung (CMS/HCC) (Primary Dx) 12/01/2024 Orders Only [facility] Oncology and Hematology - [place] [address] [place] [address] Daniel Suarez MD 12/01/2024 Abstract [facility] Oncology and Hematology [facility] [address] [place] [address] Daniel Suarez MD 11/29/2024 External Device Data STL ABSTRACTION Provider, Abstract 11/28/2024 External Device Data STL ABSTRACTION Provider, Abstract 11/25/2024 Orders Only [facility] Oncology and Hematology [place] [address] [facility] [address] [place] [address] Daniel Suarez MD 11/12/2024 External Device Data STL ABSTRACTION Provider, Abstract 10/21/2024 External Device Data STL ABSTRACTION Provider, Abstract from Last 3 Months Social History Tobacco Use Types Packs/Day Years Used Date Smoking Tobacco: Former Smokeless Tobacco: Never Tobacco Cessation:Counseling Given: Not Answered Comments Unknown Sex and Gender Information Value Date Recorded Sex Assigned at Not on file Legal 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 [address] [place] [address] Health Maintenance Due Date Last Done Comments [...] W CONTRAST Routine 11/24/2024 1 0:34 AM DESIGN/ANIMATION INSTRUCTOR from Last 3 Months Results * CBC WITH AUTODIFFERENTIAL (12/01/2024 3:49 PM CDT) Blood us Daniel Suarez MD HEMATOLOGY ORDERABLES Final Res ult * CT CHEST W CONTRAST (11/24/2024 10:34 AM DESIGN/ANIMATION INSTRUCTOR) Anatomical Region Laterality Modality Chest Computed Tomogra phy us Daniel Suarez MD CT ORDERABLES Final Result from Last 3 Months Insurance MEDICARE PART A AND B AETNA MEDICARE SUPP AESSI Advance Directives For more information, please contact: [phone] Documents on File Type Date Recorded Patient Scaler Expl anation Advance Directive POA 10/17/2023 10:34 AM Advance Directive POA Care Teams Emergency Medicine Nurse Practitioner Relationship Specialty Start Date End Date Kiesha Vu MD [address] [place] [address] PCP - General Family Practice 12/06/22
--- OUTSIDE RECORDS SUMMARY | 2024-12-11 11:29 | XMS_ITS | Clinical Summary ---
Author Organization [facility] Address [address] [place] [address] Care Team Providers Care Senior Structural Engineer Name Role Phone Tanisha Martínez MD Unavailable [phone] Kiesha Vu MD Primary Care Provider [phone] Allergies Active Allergy Reactions Criticality Noted Date [...] Diagnosed Date Coronary artery disease invo lving [place] coronary artery of [place] heart without angina pectoris 03/21/2017 Assessment & [...] Description 12/03/2024 11:00 AM CDT Office Visit [facility] Cardiology [address] [place] [address] Adarsh Coreas MD Coronary artery disease involving [place] coronary artery of [place] heart without angina pectoris (Primary Dx); Status [...] on file Legal Sex Female 10:09 AM REMOTE CODERS Gender Identity Not on file Sexual Orientation [...] 9:47 AM CDT Coronary artery disease involving [place] si[place] coronary artery of [place] si[place] heart without angina pectoris from Last 3 [...] Result from Last 3 Months Insurance MEDICARE [facility] Address: [address] [address] [place] [address] [employer] SENIOR SUPPLEMENT MEDICARE [employer] SENIOR SUPPLEMENT Advance Directives For more information, please contact: [phone] Documents on File Type Date Recorded Patient Tar Man Expl anation Power of Fire Boat Engineer 05/23/2023 1:40 PM Care Teams Senior Structural Engineer Relationship Specialty Start Date End Date Kiesha Vu MD PCP - General Family Medicine 05/23/23 Tanisha Martínez MD Family Practice 05/14/20
--- OUTSIDE RECORDS SUMMARY | 2024-12-11 11:29 | XMS_ITS | Referral Summary ---
Author Organization [facility] Address [address] [place] [address] Care Team Providers Care Brew House Supervisor Name Role Phone Tanisha Martínez MD Unavailable [phone] Kiesha Vu MD Primary Care Provider [phone] Encounters Date Type Department Care Team Description 12/03/2024 11:00 AM CDT Office Visit [facility] Medical [facility] Cardiology [address] [place] [address] Adarsh Coreas MD Coronary artery disease involving hopi coronary artery of hopi heart without angina pectoris (Primary Dx); Status [...] Diagnosed Date Coronary artery disease invo lving hopi coronary artery of hopi heart without angina pectoris 03/21/2017 Assessment & [...] on file Legal Sex Female 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
--- OUTSIDE RECORDS SUMMARY | 2024-12-11 11:29 | XMS_ITS | Encounter Summary ---
Author Organization [facility] Address 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 Gender Identity Not on file Sexual Orientation Not on file documented as of this encounter Plan of Treatment Upcoming Encounters Date Type Department Care Team (Late st Contact Info) Description 12/18/2024 4:00 PM CDT Telephone Check Up [facility] Oncology and Hematology - [place] [address] [place] [address] [place] [address] [place] [phone] documented as of this encounter Visit Diagnoses Not on filedocumented in this encounter Care Teams Supervisor Laboratory Relationship Specialty Start Date End Date Kiesha Vu MD [address] [place] [address] PCP - General Family Practice 12/06/22 documented as of this encounter
--- OUTSIDE RECORDS SUMMARY | 2024-12-11 11:29 | XMS_ITS | Clinical Summary ---
Author Organization [facility] Address [facility] [place] [address] Care Team Providers Care Distribution Center Administrator Name Role Phone Amy Cici Díaz Primary [...] to complete this topic [place] [address] Care Teams Distribution Center Administrator Relationship Specialty Start Date End Date Amy Cici Díaz PA [address] [place], [place] [id number] PCP - General Physician [employer] 06/03/24
--- OUTSIDE RECORDS SUMMARY | 2024-12-11 11:29 | XMS_ITS | Encounter Summary ---
Author Organization [facility] Address 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 Gender Identity Not on file Sexual Orientation Not on file documented as of this encounter Plan of Treatment Upcoming Encounters Date Type Department Care Team (Late st Contact Info) Description 12/18/2024 4:00 PM CDT Telephone Check Up [facility] Oncology and Hematology - [place] [address] [place] [phone] [place] [address] [place] [phone] documented as of this encounter Visit Diagnoses Not on filedocumented in this encounter Care Teams Holter Scanning Technician Relationship Specialty Start Date End Date Kiesha Vu MD [address] [place] [address] PCP - General Family Practice 12/06/22 documented as of this encounter
== END 2024-12-11 10:40 | disposition home or self-care (01) ==
PROVIDERS: PCP Family Medicine; Visit Provider Internal Medicine Hematology & Oncology
DX: C34.31 Malignant neoplasm of lower lobe, right bronchus or lung (principal)
CPT/HCPCS: 78815; A9552

== ENCOUNTER 2025-04-08 08:34 | Outpatient (CLI) | payer MEDICARE, SELFPAY ==
--- NOTE | ~2025-04-08 | CT_ITS ---
Clinical Indication: Lung cancer CT Scan of the Chest with Contrast: Technique: Contiguous sections were acquired throughout the chest after intravenous administration of 75 cc of Omnipaque 350. Dose reduction technique was used on this scan by utilizing automated exposu re control and iterative reconstruction technique. The dose-length product (DLP) was 165.20 mGy-cm. COMPARISON: 11/24/2024 Findings: There is no evidence of any significant mediastinal, hilar or axillary lymphadenopathy. There is no f illing defect in the pulmonary arterial tree to suggest pulmonary embolus. There is no evidence of ao rtic dissection or aneurysm. There is no evidence of pleural or pericardial effusion. Stable 1 cm irregular nodule in the peripheral right upper lobe with surrounding interstitial promine nce. Stable irregular masslike consolidation in the right lower lobe anteriorly. Stable subcentimeter nodules posteriorly at the left lung base. Moderate emphysema present. Calcified granulomas are pres ent bilaterally. Images through the upper abdomen reveal 3.1 cm infrarenal abdominal aortic aneurysm. Stable compressi on fractures of T9 and T10. Impression: Stable irregular somewhat masslike consolidation right lower lobe, which could reflect treated diseas e or postictal change. Stable irregular 1 cm nodule right upper lobe, with mild surrounding interstitial prominence. This al so could reflect treated disease/post treatment change. Stable compression fractures of T9 and T10. Reviewed, dictated and finalized at [facility]. Impression: Stable irregular somewhat masslike consolidation right lower lobe, which could reflect treated disease or postictal change. Stable irregular 1 cm nodule right upper lobe, with mild surrounding interstiti al prominence. This also could reflect treated disease/post treatment change. Stable compression fractures of T9 and T10.
--- OUTSIDE RECORDS SUMMARY | 2025-04-08 08:45 | XMS_ITS | Referral Summary ---
Author Organization [facility] Address [address] [place] [address] Care Team Providers Care Fish And Game Club Manager Name Role Phone Tanisha Martínez MD Unavailable [phone] Kiesha Vu MD Primary Care Provider [phone] Encounters Date Type Department Care Team Description 03/23/2025 Telephone [facility] Medical [facility] Cardiology [address] [place] [address] Adarsh Castrejon MD 03/23/2025 10:15 AM CDT Ancillary Procedure [facility] Cardiology [address] [facility] [address] [place] [address] Coronary artery disease involving [place] coronary artery of [place] heart without angina pectoris from Last 3 Months Allergies Active Allergy [...] Take by mouth as needed (heartburn) Active albuterol HFA (PROVENTIL HFA,VENTOLIN HFA,PROAIR HFA) 90 mcg/actuation inhaler INHALE 2 PUFFS EVERY 4 HOURS NEEDED FOR WHEEZE OR FOR SHORTNESS OF BREATH 5 Active rosuvastatin (CRESTOR) 20 mg tablet Take 1 tablet (20 mg total) by mouth nightly 90 tablet 3 5 12/19/19 26 Active metoprolol XL (TOPROL-XL) 25 mg extended release tablet TAKE 1 TABLET BY MOUTH ONCE DAILY 90 tablet 3 5 Active Eliquis 5 mg tablet TAKE 1 TABLET (5 MG TOTAL) BY MOUTH 2 (TWO) TIMES A DAY 180 tablet 3 5 Active Active Problems Problem Noted Date Diagnosed Date Coronary artery disease invo lving [place] coronary artery of [place] heart without angina pectoris 03/21/2017 Assessment & [...] on file 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 Gender Identity Not on file Sexual [...] A M CDT Height 160 cm (5' 3) 12/03/2024 10:51 AM CDT Body Mass Index 17.41 12/03/2024 10:51 AM CDT Plan of Treatment Not on file Procedures Procedure Name Priority Date/Time Associated Diagnosis Comments TRANSTHORACIC ECHO (TTE) COMPLETE W DOPPLER/CF WO CONTRAST Routine 03/23/2025 12:23 PM CDT Coronary artery disease involving [place] coronary artery of [place] heart without angina pectoris from Last 3 Months Results * TRANSTHORACIC ECHO (TTE) COMPLETE W DOPPLER/CF WO CONTRAST (03/23/2025 12:23 PM CDT) EF Mod BP 47 % CONS SCIMAGE Anatomical Region Laterality Modality Ultrasound 03/23/2025 10:4 4 AM CDT Narrative 03/23/2025 2:52 PM CDT [facility] Medical Group Cardiology [address] [facility] [address], [place] [address] [address] [facility] [address], [place] [address] P:[phone] P:[phone] Echocardiographic Report Patient Name: HERSON DELGADO L : 1940 Study Date: 03/23/2025 10:44:09 AM Gender: F Aircraft Launch And Recovery Technician: Britta Nolan)(CT), [facility] Location: [facility] Provider: ADARSH CASTREJON Height(Cm): 160 BSA: 1.41 Weight(Kg): 44.5 Heart Rate: 64 BP: 138 / 82 Quality: Good Order Provider: ADARSH CASTREJON PROCEDURES: Echocardiographic Report: Transthoracic echocardiogram with complete 2D, M-Mode, and color Doppler examination. With Strain Analysis. INDICATIONS: I25.10 Atherosclerotic heart disease of [place] coronary artery without angina pectoris. MEASUREMENTS: 2D/MM Value Range Doppler Value Range EF Mod BP 47 % [ 54 - 74 ] JULIOCESAR Vmax 2.25 cm2 [ 2.00 - 4.00 ] LVIDd 2D 4.23 cm [ 3.80 - 5.20 ] AV Mean PG 2 mmHg LVIDs 2D 3.13 cm [ 2.20 - 3.50 ] AV Peak Nash 0.96 m/s [ 1.00 - 1.70 ] LVPWd 2D 0.97 cm [ 0.60 - 0.90 ] AV Peak PG 4 mmHg IVSd 2D 0.95 cm [ 0.60 - 0.90 ] AV VTI 22.87 cm LA Volume Index 27 cc/m2 [ 16 - 34 ] LVOT Diam 1.97 cm [ 1.70 - 2.10 ] LVOT Peak Nash 0.71 m/s [ 0.70 - 1.10 ] LVOT VTI 16.52 cm PV Peak Nash 0.69 m/s [ 0.40 - 0.80 ] TR Peak Nash 3.13 m/s [ 1.00 - 2.80 ] TR Peak PG 39 mmHg 2D/MM Value Range Doppler Value Range - FINDINGS: Interpretation Site: Exam was interpreted at [facility]. Left Ventricle: Ejection fraction is measured at 47 %. Global Longitudinal Strain is -16 %. The left ventricle is normal in size with mildly reduced systolic function. The left ventricular ejection fraction is visually estimated to be 45-50%. The basal inferior wall is hypokinetic. Right Ventricle: Normal right ventricular size. Normal right ventricular systolic function. Left Atrium: The left atrium is normal in size. Right Atrium: The right atrium is normal in size. Atrial Septum: Normal atrial septum. Mitral Valve: There is no mitral stenosis. There is mild mitral regurgitation. Aortic Valve: The aortic valve is trileaflet and opens well. There is no aortic regurgitation. Tricuspid Valve: The tricuspid valve is normal. There is moderate tricuspid regurgitation. Pulmonic Valve: The pulmonic valve is normal. There is trace pulmonic valve regurgitation. Pericardium: Normal pericardium with no significant pericardial effusion. Aorta: The aortic root at the level of the sinus of Valsalva measures 3.2 cm in diameter. IVC: Dilated IVC with respiratory collapse consistent with elevated right atrial pressure (10-15 mmHg). CONCLUSIONS: Ejection fraction is measured at 47 %. Global Longitudinal Strain is -16 %. The left ventricle is normal in size with mildly reduced systolic function. The left ventricular ejection fraction is visually estimated to be 45-50%. The basal inferior wall is hypokinetic. Electronically Signed By: Dr. Rogelio Marcelo 03/23/2025 2:51:42 PM CDT Procedure Note Rogelio Marcelo MD - 03/23/2025 [facility] Medical Group Cardiology [address] [facility] [address], [place] [address] [address] [facility] [address], [place] [address] [phone] P:[phone] Echocardiographic Report Patient Name: HERSON DELGADO L : 1940 Study Date: 03/23/2025 10:44:09 AM Gender: F Aircraft Launch And Recovery Technician: Britta Nolan)(CT), [facility] Location: [facility] Provider: ADARSH CASTREJON Height(Cm): 160 BSA: 1.41 Weight(Kg): 44.5 Heart Rate: 64 BP: 138 / 82 Quality: Good Order Provider: ADARSH CASTREJON PROCEDURES: Echocardiographic Report: Transthoracic echocardiogram with complete 2D, M-Mode, and color Dopplerexamination. With Strain Analysis. INDICATIONS: I25.10 Atherosclerotic heart disease of [place] coronary artery withoutangina pectoris. MEASUREMENTS: 2D/MM Value Range Doppler ValueRange EF Mod BP 47 % [ 54 - 74 ] JULIOCESAR Vmax 2.25cm2 [ 2.00 - 4.00 ] LVIDd 2D 4.23 cm [ 3.80 - 5.20 ] AV Mean PG 2mmHg LVIDs 2D 3.13 cm [ 2.20 - 3.50 ] AV Peak Nash 0.96m/s [ 1.00 - 1.70 ] LVPWd 2D 0.97 cm [ 0.60 - 0.90 ] AV Peak PG 4mmHg IVSd 2D 0.95 cm [ 0.60 - 0.90 ] AV VTI 22.87cm LA Volume Index 27 cc/m2 [ 16 - 34 ] LVOT Diam 1.97 cm[ 1.70 - 2.10 ] LVOT Peak Nash 0.71 m/s [ 0.70 - 1.10 ] LVOT VTI 16.52 cm PV Peak Nash 0.69 m/s [ 0.40 - 0.80 ] TR Peak Nash 3.13 m/s [ 1.00 - 2.80 ] TR Peak PG 39 mmHg 2D/MM Value Range Doppler ValueRange - FINDINGS: Interpretation Site: Exam was interpreted at [facility]. Left Ventricle: Ejection fraction is measured at 47 %. Global Longitudinal Strain is -16%. The left ventricle is normal in size with mildly reduced systolic function. Theleft ventricular ejection fraction is visually estimated to be 45-50%. The basal inferiorwall is hypokinetic. Right Ventricle: Normal right ventricular size. Normal right ventricular systolicfunction. Left Atrium: The left atrium is normal in size. Right Atrium: The right atrium is normal in size. Atrial Septum: Normal atrial septum. Mitral Valve: There is no mitral stenosis. There is mild mitral regurgitation. Aortic Valve: The aortic valve is trileaflet and opens well. There is no aorticregurgitation. Tricuspid Valve: The tricuspid valve is normal. There is moderate tricuspidregurgitation. Pulmonic Valve: The pulmonic valve is normal. There is trace pulmonic valveregurgitation. Pericardium: Normal pericardium with no significant pericardial effusion. Aorta: The aortic root at the level of the sinus of Valsalva measures 3.2 cm indiameter. IVC: Dilated IVC with respiratory collapse consistent with elevated rightatrial pressure (10-15 mmHg). CONCLUSIONS: Ejection fraction is measured at 47 %. Global Longitudinal Strain is -16%. The left ventricle is normal in size with mildly reduced systolic function. Theleft ventricular ejection fraction is visually estimated to be 45-50%. The basal inferiorwall is hypokinetic. Electronically Signed By: Dr. Rogelio Marcelo 03/23/2025 2:51:42 PM CDT Adarsh Castrejon MD CV ECHO PROCEDURES Final Result from Last 3 Months Insurance MEDICARE [employer] SENIOR SUPPLEMENT MEDICARE AET[employer] SENIOR SUPPLEMENT Advance Directives For more information, please contact: [phone] Documents on File Type Date Recorded Patient Automatic Mold Sander Expl anation Power of Cake Froster 05/23/2023 1:40 PM Care Teams Fish And Game Club Manager Relationship Specialty Start Date End Date Kiesha Vu MD PCP - General Family Medicine 05/23/23 Tanisha Martínez MD Family Practice 05/14/20
--- OUTSIDE RECORDS SUMMARY | 2025-04-08 08:45 | XMS_ITS | Clinical Summary ---
Author Organization [facility] Address [address] [place] [id number] Care Team Providers Care Product Development Worker Name Role Phone Tanisha Martínez MD Unavailable [phone] Kiesha Vu MD Primary Care Provider [phone] Allergies Active Allergy Reactions Criticality Noted Date [...] Diagnosed Date Coronary artery disease invo lving jackson coronary artery of jackson heart without angina pectoris 03/21/2017 Assessment & [...] Date Type Department Care Team Description 03/23/2025 10:15 AM CDT Ancillary Procedure [facility] Cardiology [address] [place] [address] Coronary artery disease involving jackson coronary artery of jackson heart without angina pectoris 03/23/2025 Telephone [facility] Cardiology [address] [place] [address] Adarsh Castrejon MD from Last 3 Months Surgical History Surgery [...] on file 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 Gender Identity Not on file Sexual [...] Well Visit 65+ 01/24/2004 Influenza Vaccine (#1) 2025 0, 08/29/2019, 06/18/2018 Pneumococcal vaccine 65+ Completed 08/29/2019, 05/26 Procedures Procedure Name Priority Date/Time Associated Diagnosis Comments TRANSTHORACIC ECHO (TTE) COMPLETE W DOPPLER/CF WO CONTRAST Routine 03/23/2025 12:23 PM CDT Coronary artery disease involving jackson coronary artery of jackson heart without angina pectoris from Last 3 Months Results * TRANSTHORACIC ECHO (TTE) COMPLETE W DOPPLER/CF WO CONTRAST (03/23/2025 12:23 PM CDT) EF Mod BP 47 % CONS SCIMAGE Anatomical Region Laterality Modality Ultrasound 03/23/2025 10:4 4 AM CDT Narrative 03/23/2025 2:52 PM CDT [facility] Cardiology [address] [facility] [address], [place] [address] [address] [facility] [address], [place] [address] P:[phone] P:[phone] Echocardiographic Report Patient Name: JOHN DELGADO L : 1940 Study Date: 03/23/2025 10:44:09 AM Gender: F Peoplesoft Hrms Developer: Britta Nolan)(DC), [facility] Location: [place] Ref Provider: ADARSH CASTREJON Height(Cm): 160 BSA: 1.41 Weight(Kg): 44.5 Heart Rate: 64 BP: 138 / 82 Quality: Good Order Provider: ADARSH CASTREJON PROCEDURES: Echocardiographic Report: Transthoracic echocardiogram with complete 2D, M-Mode, and color Doppler examination. With Strain Analysis. INDICATIONS: I25.10 Atherosclerotic heart disease of jackson coronary artery without angina pectoris. MEASUREMENTS: 2D/MM [...] FINDINGS: Interpretation Site: Exam was interpreted at [facility]. Left Ventricle: Ejection fraction is measured at [...] Procedure Note Rogelio Marcelo MD - 03/23/2025 [facility] Cardiology [address], [place] [address] [address] [facility] [address], [place] [address] P:[phone] P:[phone] Echocardiographic Report Patient Name: JOHN DELGADO L : 1940 Study Date: 03/23/2025 10:44:09 AM Gender: F Peoplesoft Hrms Developer: Britta Abdullahi (Dimitri)(CT), [facility] Location: [facility] Provider: ADARSH CASTREJON Height(Cm): 160 BSA: 1.41 Weight(Kg): 44.5 Heart Rate: 64 BP: 138 / 82 Quality: Good Order Provider: ADARSH CASTREJON PROCEDURES: Echocardiographic Report: Transthoracic echocardiogram with complete 2D, M-Mode, and color Dopplerexamination. With Strain Analysis. INDICATIONS: I25.10 Atherosclerotic heart disease of jackson coronary artery withoutangina pectoris. MEASUREMENTS: 2D/MM Value [...] FINDINGS: Interpretation Site: Exam was interpreted at [facility]. Left Ventricle: Ejection fraction is measured at [...] Dr. Rogelio Marcelo 03/23/2025 2:51:42 PM CDT us Adarsh Castrejon MD CV ECHO PROCEDURES Final Result from Last 3 Months Insurance MEDICARE T SENIOR SUPPLEMENT MEDICARE AETNA SENIOR SUPPLEMENT Advance Directives For more information, please contact: [phone] Documents on File Type Date Recorded Patient Textile Bag Sewer Expl anation Power of Sales Representative Sales Manager 05/23/2023 1:40 PM Care Teams Product Development Worker Relationship Specialty Start Date End Date Kiesha Vu MD PCP - General Family Medicine 05/23/23 Tanisha Martínez MD Family Practice 05/14/20
--- OUTSIDE RECORDS SUMMARY | 2025-04-08 08:45 | XMS_ITS | Patient Health Record ---
Author Organization [facility] Address [facility] [place] [id number] Support Name Relationship Address Phone HERSON SHAW Guarantor Unknown Reason For Referral No Information Medications Medication SIG (Take, Route, Frequency, Duration) Notes Start Date End Date Status omeprazole 20 MG Delayed Release Oral Tablet ORAL omeprazole 20 MG Delayed Release Oral TabletOriginal Medicationomeprazole 20 MG Delayed Release Oral Tablet *Reorder from [facility] for eRx and Interaction Alerts* 9 Active aspirin 81 MG Delayed Release Oral Tablet ORAL aspirin 81 MG Delayed Release Oral TabletOriginal Medicationaspirin 81 MG Delayed Release Oral Tablet *Reorder from [facility] for eRx and Interaction Alerts* 8 Active amoxicillin 500 MG / clavulanate 125 MG Oral Tablet [Augmentin] ORAL amoxicillin 500 MG / clavulanate 125 MG Oral Tablet [Augmentin]Original Medicationamoxicillin 500 MG / clavulanate 125 MG Oral Tablet [Augmentin] *Reorder from [facility] for eRx and Interaction Alerts* 9 Active Saccharomyces boulardii 250 MG Oral Capsule ORAL Saccharomyces boulardii 250 MG Oral CapsuleOriginal MedicationSaccharomyces boulardii 250 MG Oral Capsule *Reorder from [facility] for eRx and Interaction Alerts* 8 Active simvastatin 10 MG Oral Tablet ORAL simvastatin 10 MG Oral TabletOriginal Medicationsimvastatin 10 MG Oral Tablet *Reorder from [facility] for eRx and Interaction Alerts* 9 Active Plan Of Treatment No Information
[2025-04-08 09:13] LABS: Estimated Glomerular Filt Rate 43
== END 2025-04-08 08:35 | disposition home or self-care (01) ==
PROVIDERS: PCP Family Medicine; Visit Provider Internal Medicine Hematology & Oncology
DX: R91.8 Other nonspecific abnormal finding of lung field (principal); R91.1 Solitary pulmonary nodule; S22.070A Wedge compression fracture of T9-T10 vertebra, initial encounter for closed fracture; X58.XXXA Exposure to other specified factors, initial encounter; C34.31 Malignant neoplasm of lower lobe, right bronchus or lung
CPT/HCPCS: 71260; Q9967

== ENCOUNTER 2025-04-08 09:30 | Outpatient (CLI) | payer MEDICARE, SELFPAY ==
--- OUTSIDE RECORDS SUMMARY | 2025-04-08 09:38 | XMS_ITS | Clinical Summary ---
Author Organization [facility] Address [facility] [place] [address] Care Team Providers Care Shift Supervisor Melting Name Role Phone Amy Cici Díaz Primary [...] 12:12 AM CDT Height 157.5 cm (5' 2) 06/03/2024 12:12 AM CDT Body Mass Index [...] - 2023-2 5 season) 2024 12/26/2021, 07/20/2021 Pneumococcal Vaccine: 50+ Years Completed 08/29/2019, 06/18/2018 Meningococcal B Vaccine Aged Out No l onger eligible based on patient's age to complete this topic Meningococcal Vaccine Aged Out No vanessa slade eligible based on patient's age to complete this topic RSV Immunizations Under 20 Months Aged Out No longer eligible b ased on patient's age to complete this topic Insurance [facility] Care Teams Shift Supervisor Melting Relationship Specialty Start Date End Date Cici Valdes PA [address] [place] [id number] PCP - General Physician Deputy Register Of Deeds Medical 06/03/24
--- OUTSIDE RECORDS SUMMARY | 2025-04-08 09:38 | XMS_ITS | Clinical Summary ---
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 03/21/2017 Assessment & [...] Description 03/23/2025 10:15 AM CDT Ancillary Procedure [facility] Cardiology [address] [place] [address] Coronary artery disease involving hydab[place]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[place] heart without angina pectoris 03/23/2025 Telephone [facility] Cardiology [address] [place] [address] Adarsh Castrejon MD from Last [...] on file Legal Sex Female 10:09 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 Gender Identity Not on file Sexual Orientation [...] 12:23 PM CDT Coronary artery disease involving hyd[place]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[place] heart without angina pectoris from Last 3 Months Results * TRANSTHORACIC ECHO (TTE) COMPLETE W DOPPLER/CF WO CONTRAST (03/23/2025 12:23 PM CDT) EF Mod BP 47 % CONS SCIMAGE Anatomical Region Laterality Modality Ultrasound 03/23/2025 10:4 4 AM CDT Narrative 03/23/2025 2:52 PM CDT [facility] Cardiology [address] [facility] [address], [place] [address] [address] [facility] [address], [address], [place] [address] P:[phone] P:[phone] Echocardiographic Report Patient Name: JOHN DELGADO L : 1940 Study Date: 03/23/2025 10:44:09 AM Gender: F Outside Food Server: Britta Nolan)(NM), [facility] Location: [place] Ref Provider: ADARSH CASTREJON Height(Cm): 160 BSA: 1.41 Weight(Kg): 44.5 Heart Rate: 64 BP: 138 / 82 Quality: Good Order Provider: ADARSH CASTREJON PROCEDURES: Echocardiographic Report: Transthoracic echocardiogram with complete 2D, M-Mode, and color Doppler examination. With Strain Analysis. 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 MEASUREMENTS: 2D/MM [...] FINDINGS: Interpretation Site: Exam was interpreted at [facility]. Left Ventricle: Ejection fraction is measured at [...] Procedure Note Rogelio Marcelo MD - 03/23/2025 [facility] Cardiology [address], [place] [address] [address] [facility] [address], [place] [address] P:[phone] P:[phone] Echocardiographic Report Patient Name: JOHN DELGADO L : 1940 Study Date: 03/23/2025 10:44:09 AM Gender: F Outside Food Server: Britta Abdullahi (Dimitri)(CT), [facility] Location: [facility] Provider: ADARSH CASTREJON Height(Cm): 160 BSA: 1.41 Weight(Kg): 44.5 Heart Rate: 64 BP: 138 / 82 Quality: Good Order Provider: ADARSH CASTREJON PROCEDURES: Echocardiographic Report: Transthoracic echocardiogram with complete 2D, M-Mode, and color Dopplerexamination. With Strain Analysis. INDICATIONS: I25.10 Atherosclerotic heart disease of hydaburg coronary artery withoutangina pectoris. MEASUREMENTS: 2D/MM Value [...] FINDINGS: Interpretation Site: Exam was interpreted at [facility]. Left Ventricle: Ejection fraction is measured at [...] Advance Directives For more information, please contact: [phone] Documents on File Type Date Recorded Patient Hot Strip Finisher Expl anation Power of Ceramics Engineer 05/23/2023 1:40 PM Care Teams Nuisance Wildlife Trapper Relationship Specialty Start Date End Date Kiesha Vu MD PCP - General Family Medicine 05/23/23 Tanisha Martínez MD Family Practice 05/14/20
--- OUTSIDE RECORDS SUMMARY | 2025-04-08 09:38 | XMS_ITS | Referral Summary ---
Author Organization [facility] Address [address] [place] [address] Care Team Providers Care Bell Hole Digger Name Role Phone Tanisha Martínez MD Unavailable [phone] Kiesha Vu MD Primary Care Provider [phone] Encounters Date Type Department Care Team Description 03/23/[address] 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 Cardiology [address] [facility] [address], [place] [address] [address] [facility] [address], [place] [address] [phone] P:[phone] Echocardiographic Report Patient Name: HERSON DELGADO L : 1940 Study Date: 03/23/2025 10:44:09 AM Gender: F Picker Machine Operator: Britta Nolan)(CT), [facility] Location: [facility] Provider: ADARSH CASTREJON Height(Cm): 160 BSA: 1.41 Weight(Kg): 44.5 Heart Rate: 64 BP: 138 / 82 Quality: Good Order Provider: ADARSH CASTREJON PROCEDURES: Echocardiographic Report: Transthoracic echocardiogram with complete 2D, M-Mode, and color Doppler examination. With Strain Analysis. INDICATIONS: I25.10 Atherosclerotic heart disease of alatna coronary artery without angina pectoris. MEASUREMENTS: 2D/MM [...] FINDINGS: Interpretation Site: Exam was interpreted at [facility]. Left Ventricle: Ejection fraction is measured [...] Procedure Note Rogelio Marcelo MD - 03/23/2025 [facility] Cardiology [address] [facility] [address] [address] [address] [facility] [address], [place] [address] P:[phone] P:[phone] Echocardiographic Report Patient Name: HERSON DELGADO L : 1940 Study Date: 03/23/2025 10:44:09 AM Gender: F Picker Machine Operator: Britta Nolan)(CT), [facility] Location: [facility] Provider: ADARSH CASTREJON Height(Cm): 160 BSA: 1.41 Weight(Kg): 44.5 Heart Rate: 64 BP: 138 / 82 Quality: Good Order Provider: ADARSH CASTREJON PROCEDURES: Echocardiographic Report: Transthoracic echocardiogram with complete 2D, M-Mode, and color Dopplerexamination. With Strain Analysis. INDICATIONS: I25.10 Atherosclerotic heart disease of alatna coronary artery withoutangina pectoris. MEASUREMENTS: 2D/MM Value [...] FINDINGS: Interpretation Site: Exam was interpreted at [facility]. Left Ventricle: Ejection fraction is measured [...] Advance Directives For more information, please contact: [phone] Documents on File Type Date Recorded Patient Solderer Furnace Expl anation Power of Hat Forming Machine Operator 05/23/2023 1:40 PM Care Teams Bell Hole Digger Relationship Specialty Start Date End Date Kiesha Vu MD PCP - General Family Medicine 05/23/23 Tanisha Martínez MD Family Practice 05/14/20
[2025-04-08 10:01] LABS: Hematocrit 34.5 % (37.0-47.0); Hemoglobin 11.0 g/dL (12.0-15.0); Immature Granulocyte Percent A 0.4 % (0-0.5); Lymphocytes Absolute Auto 1.34 K/mm3 (0.9-3.2); Mean Corpuscular HGB Conc 31.9 g/dl (32-36); Mean Corpuscular Hemoglobin 30.3 pg (26-34); Mean Corpuscular Volume 95.0 fl (80-100); Nucleated Red Blood Cells Absolute Auto 0.000 K/mm3 (0.0-0.012); Nucleated Red Blood Cells Perc 0.0 % (0.0-0.2); Platelet Count Result 203 k/mm3 (150-375); Red Blood Count 3.63 M/mm3 (4.2-5.4); White Blood Count 7.5 K/mm3 (4.5-10.0)
[2025-04-08 13:26] LABS: Alanine Aminotransferase 17 U/L (6-35); Albumin Level 4.1 g/dL (3.5-5.1); Alkaline Phosphatase 60 U/L (38-126); Anion Gap 9 mmol/L (4-12); Aspartate Amino Transferase 30 U/L (14-36); Bilirubin,Total 0.7 mg/dL (0.2-1.3); Blood Urea Nitrogen 19 mg/dL (7-17); Calcium 9.3 mg/dL (8.4-10.2); Carbon Dioxide 27 mmol/L (22-30); Chloride 101 mmol/L (98-107); Estimated Glomerular Filt Rate 45; Glucose 91 mg/dL (65-110); Potassium 5.1 mmol/L (3.4-5.0); Sodium 137 mmol/L (137-145); Total Protein 7.4 g/dL (6.3-8.2)
== END 2025-04-08 09:31 | disposition home or self-care (01) ==
PROVIDERS: PCP Family Medicine; Visit Provider Internal Medicine Hematology & Oncology
DX: C34.31 Malignant neoplasm of lower lobe, right bronchus or lung (principal)
CPT/HCPCS: 36415; 80053; 85025

== ENCOUNTER 2025-06-18 13:42 | Outpatient (CLI) | payer MEDICARE, SELFPAY ==
--- NOTE | ~2025-06-18 | US_ITS ---
US arterial ankle brachial ind INDICATION: Right leg pain TECHNIQUE: Segmental pressures and plethysmographic and Doppler waveforms of the brachial and lower extremity arteries were obtained. COMPARISON: None. FINDINGS: Right and left brachial artery pressures of 151 mm Hg and 140 mm Hg, respectively, are concordant (normal difference <= 30 mmHg). The right ankle-brachial index (CATHERINE) is 1 (normal >= 0.9-1.0). The right great toe-brachial index (TBI) is 0.44 (normal >= 0.60). The left CATHERINE is 1.03. The left TBI is 0.68. IMPRESSION: 1. Normal ankle-brachial indices. 2: Decreased right toe brachial index consistent with peripheral arterial disease. Reviewed, dictated and finalized at location O. IMPRESSION: 1. Normal ankle-brachial indices. 2: Decreased right toe brachial index consistent with peripheral arterial disea se.
--- OUTSIDE RECORDS SUMMARY | 2025-06-18 16:32 | XMS_ITS | Encounter Summary ---
Author Organization [facility] Address [address] [place] [address] Care Team Providers Care Manager Of Distribution Name Role Phone Lexx Wright MD Primary Care Provider Tanisha Martínez MD Unavailable [phone] Kiesha Vu MD Primary Care Provider [phone] Encounter Details Date Type Department Care Team (Late st Contact Info) Description 04/16/2023 Orders Only [facility] Health Information Management [address] [place] [id number] Scanning, Provider Social History Tobacco Use Types Packs/Day Years Used Date Smoking Tobacco: Former Cigarettes Q uit: 02/14/2021 Smokeless Tobacco: Never Alcohol Use Standard Drinks/Week Comments No 0 (1 standard drink = 0.6 oz pur e alcohol) Comments Unknown Sex and Gender Information Value Date Recorded Sex Assigned at Not on file Legal Sex Female 10:09 AM OPERATIONS SUPPORT REPRESENTATIVE Gender Identity Not on file Sexual Orientation Not on file documented as of this encounter Plan of Treatment Not on file documented as of this encounter Procedures Procedure Name Priority Date/Time Associated Diagnosis Comments SCAN - RADIOLOGY/IMAGING 04/16/2023 documented in this encounter Results * SCAN - RADIOLOGY/IMAGING (04/16/2023) Anatomical Region Laterality Modality Other us Provider Scanning Final Result documented in this encounter Visit Diagnoses Not on filedocumented in this encounter Care Teams Manager Of Distribution Relationship Specialty Start Date End Date Lexx Wright MD PCP - General Family Practice 05/14/20 05/22/23 Kiesha Vu MD PCP - General Family Medicine 05/23/23 Tanisha Martínez MD Family Practice 05/14/20 documented as of this encounter
--- OUTSIDE RECORDS SUMMARY | 2025-06-18 16:32 | XMS_ITS | Clinical Summary ---
Author Organization [facility] Address [facility] [place] [address] Care Team Providers Care Snow Technician Name Role Phone Amy Cici Díaz Primary [...] 75+ series) 2014 COVID-19 Vaccine ( - 2024-2 6 season) 2025 12/26/2021, 07/20/2021 Pneumococcal Vaccine: 50+ Years Completed 08/29/2019, 06/18/2018 Meningococcal B Vaccine Aged Out No l onger eligible based on patient's age to complete this topic Meningococcal Vaccine Aged Out No vanessa slade eligible based on patient's age to complete this topic RSV Immunizations Under 20 Months Aged Out No longer eligible b ased on patient's age to complete this topic Insurance MEDICARE AEST. [facility] Care Teams Snow Technician Relationship Specialty Start Date End Date Cici Valdes PA [address] [place] [id number] PCP - General Physician Raw Material Handler Medical 06/03/24
--- OUTSIDE RECORDS SUMMARY | 2025-06-18 16:32 | XMS_ITS | Clinical Summary ---
Author Organization [facility] Address [address] [place] [phone] Care Team Providers Care Ad Trafficker Name Role Phone Tanisha Martínez MD Unavailable [phone] Kiesha Vu MD Primary Care Provider [phone] Allergies Active Allergy Reactions Criticality Noted Date [...] Diagnosed Date Coronary artery disease invo lving apache coronary artery of apache heart without angina pectoris 03/21/2017 Assessment [...] Encounters Date Type Department Care Team Description 04/12/2025 Results Follow-Up [facility] Cardiology [address] [facility] [address] [place] [phone] Steph Castrejon MD Transthoracic Echo (TTE) Complete W Doppler/CF 03/23/2025 10:15 AM CDT Ancillary Procedure [facility] Cardiology [address] [facility] [address] [place] [address] Coronary artery disease involving apache coronary artery of apache heart without angina pectoris 03/23/2025 Telephone [facility] Cardiology [address] [place] [address] Steph Castrejon MD from Last 3 Months Surgical [...] on file Legal 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 Gender Identity Not on file Sexual [...] 12:23 PM CDT Coronary artery disease involving apache coronary artery of apache heart without angina pectoris from Last 3 Months Results * TRANSTHORACIC ECHO (TTE) COMPLETE W DOPPLER/CF WO CONTRAST (03/23/2025 12:23 PM CDT) EF Mod BP 47 % CONS SCIMAGE Anatomical Region Laterality Modality Ultrasound 03/23/2025 10:4 4 AM CDT Narrative 03/23/2025 2:52 PM CDT [facility] Cardiology [address] [facility] [address], [place] [address] [address] [facility] [address], [place] [address] [phone] P:[phone] Echocardiographic Report Patient Name: HERSON DELGADO L : 1940 Study Date: 03/23/2025 10:44:09 AM Gender: F Credit Product Analyst: Britta Abdullhai (Dimitri)([place]), [facility] Location: [place] Ref Provider: STEPH CASTREJON Height(Cm): 160 BSA: 1.41 Weight(Kg): 44.5 Heart Rate: 64 BP: 138 / 82 Quality: Good Order Provider: STEPH CASTREJON PROCEDURES: Echocardiographic Report: Transthoracic echocardiogram with complete 2D, M-Mode, and color Doppler examination. With Strain Analysis. INDICATIONS: I25.10 Atherosclerotic heart disease of apache coronary artery without angina pectoris. MEASUREMENTS: 2D/MM [...] Interpretation Site: Exam was interpreted at [facility]. Left Ventricle: Ejection fraction is measured at [...] Procedure Note Rogelio Marcelo MD - 03/23/2025 [facility] Cardiology [address] [facility] [address], [place] [address] [address] [facility] [address], [place] [address] P:[phone] P:[phone] Echocardiographic Report Patient Name: HERSON DELGADO L : 1940 Study Date: 03/23/2025 10:44:09 AM Gender: F Credit Product Analyst: Britta Nolan)([place]), [facility] Location: [facility] Provider: STEPH CASTREJON Height(Cm): 160 BSA: 1.41 Weight(Kg): 44.5 Heart Rate: 64 BP: 138 / 82 Quality: Good Order Provider: STEPH CASTREJON PROCEDURES: Echocardiographic Report: Transthoracic echocardiogram with complete 2D, M-Mode, and color Dopplerexamination. With Strain Analysis. INDICATIONS: I25.10 Atherosclerotic heart disease of apache coronary artery withoutangina pectoris. MEASUREMENTS: 2D/MM Value [...] Interpretation Site: Exam was interpreted at [facility]. Left Ventricle: Ejection fraction is measured at [...] Dr. Rogelio Marcelo 03/23/2025 2:51:42 PM CDT Steph Castrejon MD CV ECHO PROCEDURES Final Result from Last 3 Months Insurance MEDICARE [facility] SENIOR SUPPLEMENT MEDICARE AET SENIOR SUPPLEMENT Advance Directives For more information, please contact: [phone] Documents on File Type Date Recorded Patient Eyelet Maker Expl anation Power of Shipping And Receiving Associate 05/23/2023 1:40 PM Care Teams Ad Trafficker Relationship Specialty Start Date End Date Kiesha Vu MD PCP - General Family Medicine 05/23/23 Tanisha Martínez MD Family Practice 05/14/20
--- OUTSIDE RECORDS SUMMARY | 2025-06-18 16:32 | XMS_ITS | Encounter Summary ---
Author Organization [facility] Healthcare Address [address] [place] [address] Care Team Providers Care Belt Operator Name Role Phone Tanisha Martínez MD Unavailable [phone] Kiesha Vu MD Primary Care Provider [phone] Encounter Details Date Type Department Care Team (Late st Contact Info) Description 07/07/2024 Orders Only [facility] [place] Health Information Management [address] [place] [id number] Scanning, Provider Social History Tobacco Use Types Packs/Day Years Used Date Smoking Tobacco: Former Cigarettes Q uit: 02/14/2021 Smokeless Tobacco: Never Alcohol Use Standard Drinks/Week Comments No 0 (1 standard drink = 0.6 oz pur e alcohol) Comments Unknown Sex and Gender Information Value Date Recorded Sex Assigned at Not on file Legal Sex Female 10:09 AM PACK OPERATOR Gender Identity Not on file Sexual Orientation Not on file documented as of this encounter Plan of Treatment Not on file documented as of this encounter Procedures Procedure Name Priority Date/Time Associated Diagnosis Comments PULMONARY - RESULT SCAN 07/07/2024 documented in this encounter Results * PULMONARY - RESULT SCAN (07/07/2024) Anatomical Region Laterality Modality Other us Provider Scanning Final Result documented in this encounter Visit Diagnoses Not on filedocumented in this encounter Care Teams Belt Operator Relationship Specialty Start Date End Date Kiesha Vu MD PCP - General Family Medicine 05/23/23 Tanisha Martínez MD Family Practice 05/14/20 documented as of this encounter
--- OUTSIDE RECORDS SUMMARY | 2025-06-18 16:32 | XMS_ITS | Clinical Summary ---
Author Organization [facility] Suzanne campos [facility] Address [address] [place] [address] Care Team Providers Care Bisque Tile Burner Name Role Phone Kiesha Vu MD Primary Care Provider [phone] Allergies Active Allergy Reactions Criticality Noted Date [...] Encounters Date Type Department Care Team Description 06/09/2025 External Device Data ST[facility] ABSTRACTION Provider, Abstract 05/12/2025 External Device Data [facility] ABSTRACTION Provider, Abstract 04/28/2025 External Device Data [facility] ABSTRACTION Provider, Abstract 04/17/2025 12:45 PM CDT Office Visit [facility] - [place] [address] [place] [id number] Daniel Suarez MD Malignant neoplasm of lower lobe of right lung (CMS/HCC) (Primary Dx) 04/10/2025 Orders Only [facility] - [place] [address] [place] [id number] Daniel Suarez MD 04/08/2025 External Device Data ST[facility] ABSTRACTION Provider, Abstract 04/08/2025 Orders Only [facility] - [place] [address] [place] [address] Daniel Suarez MD 04/07/2025 External Device Data [facility] ABSTRACTION Provider, Abstract from Last 3 Months Social History Tobacco Use Types Packs/Day Years Used Date Smoking Tobacco: Former Smokeless Tobacco: Never Tobacco Cessation:Counseling Given: Not Answered Comments Unknown Sex and Gender Information Value Date Recorded Sex Assigned at Not on file Legal Sex Female 1:58 PM COMPOUNDING AND 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 Gender Identity Not on file Sexual Orientation Not on file Last Filed Vital Signs Vital Sign Reading Time Taken Comments Blood Pressure 104/51 04/17/2025 12:27 PM CDT Pulse 76 04/17/2025 12:27 PM CDT Temperature 36.8 C (98.3 F) 04/17/2025 12:27 PM CDT Respiratory Rate 16 04/17/2025 12:27 PM CDT Oxygen Saturation 90% 04/17/2025 12:27 PM CDT Inhaled Oxygen Concentration - - Weight 43.4 kg (95 lb 9.6 oz) 04/17/2025 12:27 P M CDT Height 160 cm (5' 3) 07/20/2022 9:03 AM CDT Body Mass Index 16.93 07/20/2022 9:03 AM CDT Plan of Treatment Upcoming Encounters Date Type Department Care Team (Late st Contact Info) Description 10/14/2025 11:45 AM COMPOUNDING AND 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 Office Visit [facility] - [place] [address] [place] [address] Daniel Suarez MD [address] [facility] [address] [place] [address] Health Maintenance Due Date Last Done Comments DTAP/TDAP/TD VACCINES (1 - Tdap) 1959 PNEUMOCOCCAL VACCINE 50+ YEARS (1 of 2 - PCV) 01/23/19 58 ZOSTER VACCINE (1 of 2) 1989 OSTEOPOROSIS SCREENING 01/24/2004 RSV VACCINE (60+ or ) (1 - 1-dose 75+ series) 2014 INFLUENZA VACCINE (#1) 2025 Procedures Procedure Name Priority Date/Time Associated Diagnosis Comments CT CHEST W CONTRAST Routine 04/08/2025 3 :02 PM CDT COMPREHENSIVE METABOLIC PANEL Routine 04/08/2025 2:45 PM CDT CBC WITH DIFFERENTIAL Routine 04/08/2025 1:43 PM CDT from Last 3 Months Results * CT CHEST W CONTRAST (04/08/2025 3:02 PM CDT) Anatomical Region Laterality Modality Chest Computed Tomogra phy us Daniel Suarez MD CT ORDERABLES Final Result * COMPREHENSIVE METABOLIC PANEL (04/08/2025 2:45 PM CDT) Blood us Daniel Suarez MD CHEMISTRY ORDERABLES Final Resu lt * CBC WITH DIFFERENTIAL (04/08/2025 1:43 PM CDT) Blood us Daniel Suarez MD HEMATOLOGY ORDERABLES Final Res ult from Last 3 Months Insurance MEDICARE PART A AND B AET[employer] MEDICARE SUPP AESSI Advance Directives For more information, please contact: [phone] Documents on File Type Date Recorded Patient Family Advocate Expl anation Advance Directive POA 10/17/2023 10:34 AM Advance Directive POA Care Teams Bisque Tile Burner Relationship Specialty Start Date End Date Kiesha Vu MD [address] [place] [address] PCP - General Family Practice 12/06/22
--- OUTSIDE RECORDS SUMMARY | 2025-06-18 16:32 | XMS_ITS | Patient Health Record ---
Author Organization [facility] Address [facility] [place] [address] Support Name Relationship Address Phone HERSON SHAW Guarantor Unknown [phone] Reason For Referral No Information Medications Medication SIG (Take, Route, Frequency, Duration) Notes Start Date End Date Status omeprazole 20 MG Delayed Release Oral Tablet ORAL omeprazole 20 MG Delayed Release Oral TabletOriginal Medicationomeprazole 20 MG Delayed Release Oral Tablet *Reorder from [employer] for eRx and Interaction Alerts* 9 Active aspirin 81 MG Delayed Release Oral Tablet ORAL aspirin 81 MG Delayed Release Oral TabletOriginal Medicationaspirin 81 MG Delayed Release Oral Tablet *Reorder from [employer] for eRx and Interaction Alerts* 8 Active amoxicillin 500 MG / clavulanate 125 MG Oral Tablet [Augmentin] ORAL amoxicillin 500 MG / clavulanate 125 MG Oral Tablet [Augmentin]Original Medicationamoxicillin 500 MG / clavulanate 125 MG Oral Tablet [Augmentin] *Reorder from [employer] for eRx and Interaction Alerts* 9 Active Saccharomyces boulardii 250 MG Oral Capsule ORAL Saccharomyces boulardii 250 MG Oral CapsuleOriginal MedicationSaccharomyces boulardii 250 MG Oral Capsule *Reorder from [employer] for eRx and Interaction Alerts* 8 Active simvastatin 10 MG Oral Tablet ORAL simvastatin 10 MG Oral TabletOriginal Medicationsimvastatin 10 MG Oral Tablet *Reorder from [employer] for eRx and Interaction Alerts* 9 Active Plan Of Treatment No Information
--- OUTSIDE RECORDS SUMMARY | 2025-06-18 16:32 | XMS_ITS | Encounter Summary ---
Author Organization [facility] Healthcare Address [address] [place] [address] Care Team Providers Care Admitting Counselor Name Role Phone Lexx Wright MD Primary Care Provider Tanisha Martínez MD Unavailable [phone] Kiesha Vu MD Primary Care Provider [phone] Encounter Details Date Type Department Care Team (Late st Contact Info) Description 04/24/2023 Orders Only [facility] [place] Information Management [address] [place] [phone] Scanning, Provider Social History Tobacco Use Types Packs/Day Years Used Date Smoking Tobacco: Former Cigarettes Q uit: 02/14/2021 Smokeless Tobacco: Never Alcohol Use Standard Drinks/Week Comments No 0 (1 standard drink = 0.6 oz pur e alcohol) Comments Unknown Sex and Gender Information Value Date Recorded Sex Assigned at Not on file Legal Sex Female 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 Gender Identity Not on file Sexual Orientation Not on file documented as of this encounter Plan of Treatment Not on file documented as of this encounter Procedures Procedure Name Priority Date/Time Associated Diagnosis Comments SCAN - LABS 04/24/2023 documented in this encounter Results * SCAN - LABS (04/24/2023) us Provider Scanning Final Result documented in this encounter Visit Diagnoses Not on filedocumented in this encounter Care Teams Admitting Counselor Relationship Specialty Start Date End Date Lexx Wright MD PCP - General Family Practice 05/14/20 05/22/23 Kiesha Vu MD PCP - General Family Medicine 05/23/23 Tanisha Martínez MD Family Practice 05/14/20 documented as of this encounter
== END 2025-06-18 13:43 | disposition home or self-care (01) ==
PROVIDERS: PCP Family Medicine
DX: M79.604 Pain in right leg (principal); M79.605 Pain in left leg
CPT/HCPCS: 93922

== ENCOUNTER 2025-09-18 16:08 | Inpatient (IN) | payer MEDICARE, SELFPAY ==
[2025-09-18] VITALS (19 sets, daily range): BP systolic 126–183; BP diastolic 5–66; PULSE 67–100; RESP 17–30; TEMP 36.4; O2SAT 93–100
--- NOTE | ~2025-09-18 | XR_ITS ---
XR chest 2V 09/18/2025 17:36 Indication: Cough and congestion Procedure: 2 view chest Comparison: Comparison to multiple prior studies sequentially, with oldest reviewed study dated 08/04/2022. Findings: Chronic right upper lobe infiltrates adjacent to the fissure. Chronic right basilar infiltrates. There are scattered calcified granulomas. Status post median sternotomy for CABG. Cardiomegaly. Atrial closure device present. Small pleural effusions. There is atherosclerosis and ectasia of the aorta. The lungs are hyperinflated which is consistent with, but not diagnostic of chronic obstructive pulmonary disease. Impression: 1: Stable bandlike opacities right mid and lower lung which may reflect atelectasis/scarring or atypical pneumonia. 2: Small pleural effusions. Reviewed, dictated and finalized at location O. VALVE MECHANIC Impression: 1: Stable bandlike opacities right mid and lower lung which may reflect atelect asis/scarring or atypical pneumonia. 2: Small pleural effusions.
--- OUTSIDE RECORDS SUMMARY | 2025-09-18 16:10 | XMS_ITS | Clinical Summary ---
Author Organization [facility] Address [address] [place] [address] Care Team Providers Care Market Research Consultant Name Role Phone Tanisha Martínez MD Unavailable [phone] Kiesha Vu MD Primary Care Provider [phone] Allergies Active Allergy Reactions Criticality Noted Date [...] Diagnosed Date Coronary artery disease invo lving [place] coronary artery of [place] heart without angina pectoris 03/21/2017 Assessment & Plan (04/03/2019 10:37 AM CDT): No symptoms of myocardial ischemia. Continue aspirin. Assessment & Plan (01/11/2018 1:52 PM CDT): No symptoms of myocardial ischemia three months following coronary artery bypass grafting for LAD/diagonal disease. Continue anti-platelet and beta-srihdar therapy. 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 Gender Identity Not on file Sexual Orientation [...] Visit 65+ 01/24/2004 Influenza Vaccine (#1) 2025 , 08/29/2019, 06/18/2018 Pneumococcal vaccine 65+ Completed 08/29/2019, 05/26 Insurance MEDICARE AET [place] MEDICARE AETNA SENIOR SUPPLE[place] Advance Directives For more information, please contact: [phone] Documents on File Type Date Recorded Patient Chief Psychology Expl anation Power of Business Process Expert 05/23/2023 1:40 PM Care Teams Market Research Consultant Relationship Specialty Start Date End Date Kiesha Vu MD PCP - General Family Medicine 05/23/23 Tanisha Martínez MD Family Practice 05/14/20
--- OUTSIDE RECORDS SUMMARY | 2025-09-18 16:10 | XMS_ITS | Patient Health Record ---
Author Organization [facility] Address [address] [place] [address] Support Name Relationship Address Phone HERSON SHAW Guarantor Unknown Reason For Referral No Information Medications Medication SIG (Take, Route, Frequency, Duration) Notes Start Date End Date Status omeprazole 20 MG Delayed Release Oral Tablet ORAL omeprazole 20 MG Delayed Release Oral TabletOriginal Medicationomeprazole 20 MG Delayed Release Oral Tablet *Reorder from [employer] for eRx and Interaction Alerts* 9 Active aspirin 81 MG Delayed Release Oral Tablet ORAL aspirin 81 MG Delayed Release Oral TabletOriginal Medicationaspirin 81 MG Delayed Release Oral Tablet *Reorder from [employer] for eRx and Interaction Alerts* 8 Active amoxicillin 500 MG / clavulanate 125 MG Oral Tablet [Augmentin] ORAL amoxicillin 500 MG / clavulanate 125 MG Oral Tablet [Augmentin]Original Medicationamoxicillin 500 MG / clavulanate 125 MG Oral Tablet [Augmentin] *Reorder from [employer] for eRx and Interaction Alerts* 9 Active Saccharomyces boulardii 250 MG Oral Capsule ORAL Saccharomyces boulardii 250 MG Oral CapsuleOriginal MedicationSaccharomyces boulardii 250 MG Oral Capsule *Reorder from [employer] for eRx and Interaction Alerts* 8 Active simvastatin 10 MG Oral Tablet ORAL simvastatin 10 MG Oral TabletOriginal Medicationsimvastatin 10 MG Oral Tablet *Reorder from [employer] for eRx and Interaction Alerts* 9 Active Plan Of Treatment No Information
--- OUTSIDE RECORDS SUMMARY | 2025-09-18 16:10 | XMS_ITS | Clinical Summary ---
Author Organization [facility] beth [facility] Address [address] [place] [address] Care Team Providers Care Motion Pictures Cartoonist Name Role Phone Kiesha Vu MD Primary Care Provider [phone] Allergies Active Allergy Reactions Criticality Noted Date [...] Encounters Date Type Department Care Team Description 09/15/2025 External Device Data [facility] ABSTRACTION Provider, Abstract 08/11/2025 External Device Data [facility] ABSTRACTION Provider, Abstract 07/07/2025 External Device Data [facility] ABSTRACTION Provider, Abstract 06/30/2025 External Device Data [facility] ABSTRACTION Provider, Abstract from Last 3 Months Social History Tobacco Use Types Packs/Day Years Used Date Smoking Tobacco: Former Smokeless Tobacco: Never Tobacco Cessation:Counseling Given: Not Answered Comments Unknown Sex and Gender Information Value Date Recorded Sex Assigned at Not on file Legal Sex Female 1:58 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 Gender Identity Not on file Sexual Orientation [...] st Contact Info) Description 10/14/2025 11:45 AM CHIEF CLERK Office Visit [facility] - [place] [address] [facility] [address] [place] [address] Daniel Suarez MD [address] [facility] [employer] [address] [place] [address] Health Maintenance Due Date Last Done Comments DTAP/TDAP/TD VACCINES (1 - Tdap) 1958 PNEUMOCOCCAL VACCINE 50+ YEARS (1 of 2 - PCV) 01/23/19 58 ZOSTER VACCINE (1 of 2) 1989 OSTEOPOROSIS SCREENING 01/24/2004 RSV VACCINE (60+ or ) (1 - 1-dose 75+ series) 2014 INFLUENZA VACCINE (#1) 2025 Insurance MEDICARE PART A AND B [employer] [address] Advance Directives For more information, please contact: [phone] Documents on File Type Date Recorded Patient Sifter Operator Expl anation Advance Directive POA 10/17/2023 10:34 AM Advance Directive POA Care Teams Motion Pictures Cartoonist Relationship Specialty Start Date End Date Kiesha Vu MD [address] [place] [address] PCP - General Family Practice 12/06/22
--- NOTE | 2025-09-18 17:23 | ECG_ITS ---
Test Date: 2025-09-18 20:53:29 Measurements Intervals Lambert Rate: 70 P: 83 AR: 164 QRS: 34 QRSD: 92 T: 16 QT: 403 QTc: 436 Interpretive Statements SINUS RHYTHM DELAYED PRECORDIAL R/S TRANSITION BASELINE ARTIFACT- I, III, AVR, AVL, AVF, V1-V6 BORDERLINE ECG Compared to ECG 12/03/2024 16:09:21 NO SIGNIFICANT CHANGE Electronically Signed On 09-19-2025 09:01:05 CAREER DEVELOPER by Raymond Cloud D.O.
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
[2025-09-18 20:49] LABS: Hematocrit 37.7 % (37.0-47.0); Hemoglobin 12.2 g/dL (12.0-15.0); Immature Granulocyte Percent A 0.5 % (0-0.5); Lymphocytes Absolute Auto 1.29 K/mm3 (0.9-3.2); Mean Corpuscular HGB Conc 32.4 g/dl (32-36); Mean Corpuscular Hemoglobin 29.4 pg (26-34); Mean Corpuscular Volume 90.8 fl (80-100); Nucleated Red Blood Cells Absolute Auto 0.000 K/mm3 (0.0-0.012); Nucleated Red Blood Cells Perc 0.0 % (0.0-0.2); Platelet Count Result 184 k/mm3 (150-375); Red Blood Count 4.15 M/mm3 (4.2-5.4); White Blood Count 7.8 K/mm3 (4.5-10.0)
[2025-09-18 20:53] LABS: INR 2.1; Prothrombin Time 23.3 Seconds (11.1-14.7)
[2025-09-18 20:54] LABS: Partial Thromboplastin Time 37.1 Seconds (22.3-36.8)
[2025-09-18 20:56] LABS: Alanine Aminotransferase 14 U/L (6-35); Albumin Level 4.3 g/dL (3.5-5.1); Alkaline Phosphatase 86 U/L (38-126); Anion Gap 8 mmol/L (4-12); Aspartate Amino Transferase 24 U/L (14-36); Bilirubin,Total 0.8 mg/dL (0.2-1.3); Blood Urea Nitrogen 20 mg/dL (7-17); Calcium 9.3 mg/dL (8.4-10.2); Carbon Dioxide 26 mmol/L (22-30); Chloride 101 mmol/L (98-107); Estimated Glomerular Filt Rate 44; Glucose 95 mg/dL (65-110); Magnesium 1.9 mg/dL (1.6-2.3); Potassium 3.6 mmol/L (3.4-5.0); Sodium 135 mmol/L (137-145); Total Protein 8.2 g/dL (6.3-8.2)
[2025-09-18 21:07] LABS: NT Pro B Type Natriuretic Pept 8010 pg/mL (19.9-100); Troponin I 0.020 ng/mL (0.000-0.034)
--- OUTSIDE RECORDS SUMMARY | 2025-09-18 21:16 | XMS_ITS | Clinical Summary ---
Author Organization 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
--- OUTSIDE RECORDS SUMMARY | 2025-09-18 21:16 | XMS_ITS | Clinical Summary ---
Author Organization [facility] Address [facility] [place] [address] Care Team Providers Care Senior Graphic Designer Name Role Phone Amy Cici Díaz Primary [...] - 2024-2 6 season) 2025 12/26/2021, 07/20/2021 Influenza Adult (#1) 2025 06/25/2020, 08/29/2019, 06/18/2018 Pneumococcal Vaccine: 50+ Years Completed 08/29/2019, 06/18/2018 Hepatitis A Vaccines Aged Out No long er eligible based on patient's age to complete this topic Meningococcal B Vaccine Aged Out No l onger eligible based on patient's age to complete this topic Meningococcal Vaccine Aged Out No vanessa slade eligible based on patient's age to complete this topic RSV Immunizations Under 20 Months Aged Out No longer eligible b ased on patient's age to complete this topic Insurance MEDICARE AETNA Care Teams Senior Graphic Designer Relationship Specialty Start Date End Date Amy Cici Díaz PA [address] [place], [place] [id number] PCP - General Physician Clinical Molecular Geneticist Medical 06/03/24
--- OUTSIDE RECORDS SUMMARY | 2025-09-18 21:16 | XMS_ITS | Clinical Summary ---
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 Office Visit [facility] Oncology and Hematology - [place] [address] [facility] [address] [place] [address] Daniel Suarez MD [address] [facility] [address] [place] [address] Health Maintenance Due Date Last [...] Advance Directives For more information, please contact: [phone] Documents on File Type Date Recorded Patient Office Messenger Helper Expl anation Advance Directive POA 10/17/2023 10:34 AM Advance Directive POA Care Teams Quality Assurance Supervisor Body Relationship Specialty Start Date End Date Kiesha Vu MD [address] [place] [address] PCP - General Family Practice 12/06/22
[2025-09-18 21:20] LABS: Influenza A QL RT-PCR Negative (Negative); Influenza B QL RT-PCR Negative (Negative); RSV RNA, RT-PCR Negative (Negative); SARS-CoV-2 RNA PCR Positive (Negative)
[2025-09-18] MEDS: IPRATROPIUM 0.5 MG/ALBUTEROL SULFATE 2.5 MG (BASE) AMPUL.NEB 3 ML INHALATION (21:53)
[2025-09-18] MEDS: MAGNESIUM SULF 2 GM/WATER 50ML 2 GM/50 ML BAG IVPB (22:04)
[2025-09-18] MEDS: FUROSEMIDE INJ 40 MG/4 ML VIAL IV PUSH (22:04)
[2025-09-18 22:23] LABS: Add Urine Microscopic? YES; Appearance Urine Cloudy (Clear); Glucose Urine UA Negative (Negative); Leukocyte Esterase Ur 1+ LEU/UL (Negative); Need Manual Microscopic Reviewed; Nitrate Urine Negative (Negative); Non Pathogenic Casts >20; Specific Grav Ur 1.023 (1.001-1.035)
[2025-09-19] VITALS (15 sets, daily range): BP systolic 120–163; BP diastolic 48–80; PULSE 63–91; RESP 12–23; TEMP 36.6–37.1; O2SAT 94–97; BMI 17.5
[2025-09-19 00:05] LABS: Troponin I 0.016 ng/mL (0.000-0.034)
[2025-09-19] MEDS: cefTRIAXone 1 GM in SODIUM CHLORIDE 0.9% IV 50 ML 100 ML IVPB (00:15)
--- NOTE | 2025-09-19 00:41 | WPCEDHO ---
ED Hand Off Checklist All vitals saved: y IV Site documented: y All med administrations documented: y Triage Note Triage Note pt to ED c/o dyspnea, SOB 09/18/25 16:08 duration of 4 days. pt has hx of COPD Allergies shellfish derived Allergy (Unknown, Verified 06/24/25 15:23) Nausea and Vomiting shrimp Allergy (Unknown, Verified 06/24/25 15:23) Nausea and Vomiting Family History (Last Reviewed 06/24/25 @ 15:59 by Elgin Greenberg, FOOD PRODUCTION SUPERVISOR) Sibling Family history of lung cancer Patient's brother is Family history of malignant neoplasm Father Family history of coronary artery disease Patient's father is Family history of heart disease in male family member before age 55 Mother Family history of coronary artery disease Patient's mother is Administered/Completed Medications Discontinued Medications Albuterol/Ipratropium (Ipratropium 0.5 Mg/Albuterol Sulfate 2.5 Mg (Base) Ampul.Neb 3 Ml) 3 ml INHALATION ONCE STA Stop: 09/18/25 21:44 Last Admin: 09/18/25 21:53 Dose: 3 ml Documented By: REE Furosemide (Furosemide Inj 40 Mg/4 Ml Vial) 40 mg IV PUSH ONCE STA Stop: 09/18/25 21:45 Last Admin: 09/18/25 22:04 Dose: 40 mg Documented By: ARRON Magnesium Sulfate (Magnesium Sulf 2 Gm/Water 50ml) 2 gm in 50 mls @ 25 mls/hr IVPB ONCE STA Stop: 09/18/25 23:42 Last Infusion: 09/19/25 00:07 Dose: Infused Documented By: Admin: 09/18/25 22:04 Dose: 25 mls/hr Documented By: ARRON Co-signed By: FRANCISCO Ceftriaxone Sodium 1 gm/ (Sodium Chloride) 50 mls @ 100 mls/hr IVPB ONCE STA Stop: 09/18/25 23:52 Last Admin: 09/19/25 00:15 Dose: 100 mls/hr Documented By: ARRON Methylprednisolone Sodium Succinate (Methylprednisolone Sod Succ 125 Mg Vial) 125 mg IV PUSH ONCE STA Stop: 09/18/25 21:44 Last Admin: 09/18/25 22:04 Dose: 125 mg Documented By: ARRON Interventions/Assessments Cardiac Monitoring Start: 09/18/25 16:08 Freq: Status: Active Protocol: Document 09/18/25 21:53 [facility] (Rec: 09/18/25 21:53 [facility] [id number]) Dry Box Operator Assessment Dry Box Operator Yes Applied Pulse Rate (60-100) 74 EKG Rythm Sinus Rhythm IV / Saline Lock, Insert Start: 09/18/25 16:08 Freq: Status: Active Protocol: Document 09/18/25 22:00 [facility] (Rec: 09/18/25 22:01 SAK [id number]) IV Assessment Peripheral Access Right Forearm IV Catheter Access Initiated IV Insertion Date 09/18/25 IV Insertion Time 22:01 Catheter Gauge 20 IV Insertion 1 Attempts Ultrasound Used for No Placement IV Site Assessment WNL IV Care and WNL Maintenance Last Vital Signs Temperature 97.5 F L 09/18/25 17:11 Pulse Rate 89 09/19/25 00:15 Respiratory Rate 23 H 09/19/25 00:15 Pulse Oximetry 94 09/19/25 00:15 Blood Pressure 163/70 H 09/19/25 00:01 Blood Pressure Mean 97 09/19/25 00:01 Blood Pressure Position Sitting 09/18/25 22:32 Last Result - Abnormals Only RBC 4.15 M/mm3 (4.2-5.4) L 09/18/25 20:34 RDW 14.6 % (11.5-14.5) H 09/18/25 20:34 Lymph % (Auto) 16.6 % (18.3-44.2) L 09/18/25 20:34 Yell % (Auto) 10.2 % (2.6-8.5) H 09/18/25 20:34 Yell # (Auto) 0.8 K/mm3 (0.1-0.6) H 09/18/25 20:34 Abs Immat Gran (auto) 0.04 K/mm3 (0.00-0.031) H 09/18/25 20:34 PT 23.3 Seconds (11.1-14.7) H 09/18/25 20:34 APTT 37.1 Seconds (22.3-36.8) H 09/18/25 20:34 Sodium 135 mmol/L (137-145) L 09/18/25 20:34 BUN 20 mg/dL (7-17) H 09/18/25 20:34 Creatinine 1.16 mg/dL (0.7-1.0) H 09/18/25 20:34 Estimated GFR 44 (59-) L 09/18/25 20:34 NT-Pro-B Natriuret Pep 8010 pg/mL (19.9-100) H 09/18/25 20:34 Urine Appearance Cloudy (Clear) H 09/18/25 21:51 Urine Protein 2+ mg/dL (Negative) H 09/18/25 21:51 Urine Ketones Trace mg/dL (Negative) H 09/18/25 21:51 Ur Blood (Man) 2+ (Negative) H 09/18/25 21:51 Leukocyte Esterase Rfl 1+ GERMAINE/UL (Negative) H 09/18/25 21:51 Urine WBC 21-50 /hpf (0-3) H 09/18/25 21:51 Urine Bacteria 4+ /hpf H 09/18/25 21:51 SARS-CoV-2 RNA (RT-PCR) Positive (Negative) A 09/18/25 20:34 Most Recent Suicide Severity Rating Suicide Severity Rating NO RISK INDICATED 09/18/25 16:08
--- NOTE | 2025-09-19 01:03 | ADMGEN ---
This patient, John Delgado, was admitted to 2 Medical Room 257-01. Patient/family oriented to hospital policies and general routines including ID bracelet, bed and alarms, visiting hours, pain management, procedures, bathroom and other care routines, personal items, smoking policy, room service/diet, and visiting hours. Information on how to activate the Rapid Response Team has been discussed. Patient/Family are encouraged to report perceived risks to care and to ask questions if they do not understand what they are told or what they should do.
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
[2025-09-19] MEDS: DOXYCYCLINE IV 100 MG in SODIUM CHLORIDE 0.9% IV 100 ML IVPB (04:17)
[2025-09-19] MEDS: dexAMETHasone SOD PHOS INJ 10 MG/ML 1 ML VIAL 6 MG IV PUSH (04:18)
[2025-09-19] MEDS: REMDESIVIR 200 MG/NS 250 ML 200 MG/250 ML BAG 250 MG IVPB (05:16)
[2025-09-19 05:35] LABS: Hematocrit 33.8 % (37.0-47.0); Hemoglobin 11.0 g/dL (12.0-15.0); Mean Corpuscular HGB Conc 32.5 g/dl (32-36); Mean Corpuscular Hemoglobin 29.3 pg (26-34); Mean Corpuscular Volume 89.9 fl (80-100); Platelet Count Result 193 k/mm3 (150-375); Red Blood Count 3.76 M/mm3 (4.2-5.4); White Blood Count 8.2 K/mm3 (4.5-10.0)
[2025-09-19 06:08] LABS: Anion Gap 8 mmol/L (4-12); Blood Urea Nitrogen 28 mg/dL (7-17); Calcium 8.4 mg/dL (8.4-10.2); Carbon Dioxide 26 mmol/L (22-30); Chloride 100 mmol/L (98-107); Estimated CRCL calculation 21 ml/min; Estimated Glomerular Filt Rate 43; Glucose 243 mg/dL (65-110); Potassium 3.5 mmol/L (3.4-5.0); Sodium 134 mmol/L (137-145)
--- NOTE | 2025-09-19 07:53 | P.PNIM_ITS ---
Assessment and Plan Assessment and Plan (1) COVID-19: Code(s): U07.1 - COVID-19 Status: Acute Assessment and Plan: -COVID + 09/18 - no documented hypoxia and no wheezing this AM - monitor off Decadron -continue Remdesivir - afebrile, no leukocytosis, procal 0.1 and CXR with chronic changes due to chronic lung disease/COVID - monitor off antibiotics -continue with home inhalers. - continue symptomatic management, respiratory hygiene (2) COPD (chronic obstructive pulmonary disease): Qualifiers: COPD type: unspecified COPD Qualified Code(s): J44.9 - Chronic obstructive pulmonary disease, unspecified Code(s): J44.9 - Chronic obstructive pulmonary disease, unspecified Status: Acute Assessment and Plan: -follows with pulmonology as outpatient - also has prior history of lung cancer, currently off treatment - currently without wheezing, dyspnea - monitor off abx and steroids - continue home inhalers. (3) CHF (congestive heart failure): Qualifiers: Heart failure chronicity: acute Heart failure type: unspecified Qualified Code(s): I50.9 - Heart failure, unspecified Code(s): I50.9 - Heart failure, unspecified Status: Acute Assessment and Plan: -the patient was given a dose of Lasix IV in the emergency room. I did continue with her IV Lasix. -her echo from 04/20/2023 was read as grade 1 diastolic noncompliance. Normal left ventricular size thickness and systolic function. -continue with metoprolol (4) Dyslipidemia: Code(s): E78.5 - Hyperlipidemia, unspecified Status: Acute Assessment and Plan: -continue with rosuvastatin (5) Primary hypertension: Code(s): I10 - Essential (primary) hypertension Status: Acute Assessment and Plan: -continue with metoprolol -current blood pressure is 141/65. (6) Pulmonary embolism on long-term anticoagulation therapy: Code(s): I26.99 - Other pulmonary embolism without acute cor pulmonale; Z79.01 - senior care (current) use of anticoagulants Status: Acute Assessment and Plan: -continue with apixaban. -the patient has a history of PEs and DVTs. Possibly from her past lung cancer? (7) Abnormal finding on urinalysis: Code(s): R82.90 - Unspecified abnormal findings in urine Status: Acute Assessment and Plan: - UA with 1+ LE, 21-50 WBC, 4+ bacteria, but moderate squamous cells - patient denies urinary symptoms - monitor off abx - follow-up urine and blood cultures Plan Code status: full code DVT prophylaxis: Marielos Dispo: likely home tomrrow, follow-up PT/OT Medical Record Review I have reviewed the following patient records and this information was taken into consideration when formulating the assessment and plan.: previous labs Subjective Date/time seen: 09/19/25 07:53 Interval history: Patient seen and examined at bedside. Feeling much better this morning. Denies SOB or chest pain. Cough improved. Review of Systems Review of Systems: All systems reviewed & are unremarkable except as noted in HPI and below Exam Narrative: General: NAD, frail Eyes: EOMI ENT: neck supple Cardiovascular: Regular rate and rhythm Respiratory: Clear to auscultation, respirations even and unlabored on RA Gastrointestinal: Soft, non tender Genitourinary: no suprapubic tenderness Musculoskeletal: No edema Skin: warm, dry Neuro: Alert. Psych: Mood appropriate Objective Data Vital Signs Vital Signs: Vital Signs - 24 hr 09/18/25 17:11 09/18/25 20:46 09/18/25 20:47 Temperature 97.5 F L Pulse Rate 100 75 73 Respiratory Rate 20 19 30 H Blood Pressure 126/64 183/66 H Pulse Oximetry 93 99 100 Oxygen Delivery 09/18/25 21:12 09/18/25 21:15 09/18/25 21:21 Temperature Pulse Rate 67 68 Respiratory Rate 24 H 28 H Blood Pressure 161/65 H Pulse Oximetry 97 100 Oxygen Delivery 09/18/25 21:45 09/18/25 21:53 09/18/25 21:56 Temperature Pulse Rate 78 74 75 Respiratory Rate 17 26 H Blood Pressure 161/65 H Pulse Oximetry 96 Oxygen Delivery 09/18/25 22:03 09/18/25 22:15 09/18/25 22:32 Temperature Pulse Rate 79 78 79 Respiratory Rate 22 H 18 27 H Blood Pressure 176/5 H 182/60 H Pulse Oximetry 94 98 Oxygen Delivery 09/18/25 22:59 09/18/25 23:00 09/18/25 23:01 Temperature Pulse Rate 82 83 77 Respiratory Rate 26 H 27 H 24 H Blood Pressure 168/54 H Pulse Oximetry 93 96 95 Oxygen Delivery 09/18/25 23:15 09/18/25 23:30 09/18/25 23:31 Temperature Pulse Rate 76 78 80 Respiratory Rate 23 H 23 H 29 H Blood Pressure 164/66 H Pulse Oximetry 97 96 96 Oxygen Delivery 09/18/25 23:45 09/19/25 00:00 09/19/25 00:01 Temperature Pulse Rate 85 89 89 Respiratory Rate 19 23 H 22 H Blood Pressure 163/70 H Pulse Oximetry 96 97 95 Oxygen Delivery 09/19/25 00:15 09/19/25 01:03 09/19/25 02:18 Temperature 98.7 F Pulse Rate 89 88 88 Respiratory Rate 23 H 16 16 Blood Pressure 141/65 H Pulse Oximetry 94 94 94 Oxygen Delivery Room Air 09/19/25 04:00 09/19/25 05:41 Temperature 97.9 F Pulse Rate 75 64 Respiratory Rate 12 Blood Pressure 120/48 L Pulse Oximetry 95 Oxygen Delivery Intake/Output Intake/Output: Intake & Output 09/16/25 09/17/25 09/18/25 09/19/25 23:59 23:59 23:59 23:59 Intake Total 550 Output Total 0 Balance 550 Meds/Results Medications: Active Medications Generic Name Dose Route Start Last Admin Trade Name Freq PRN Reason Stop Dose Admin Albuterol 2 puff 09/19/25 02:45 Albuterol Sulfate (*Sp) Aerosol 1 Puff INHALATION Q4H PRN Shortness Of Breath Or Wheezing Apixaban 5 mg 09/19/25 09:00 Apixaban 5 Mg Tablet PO Q12HR YEIMY Dexamethasone Sodium Phosphate 6 mg 09/19/25 02:45 09/19/25 04:18 Dexamethasone Sod Phos Inj 10 Mg/Ml 1 Ml Vial IV PUSH 09/28/25 09:01 6 mg DAILY YEIMY Administration Fluticasone/Umeclidinium/Vilanterol 1 puff 09/19/25 08:00 Fluticasone/Umeclidin/Vilanter 100-62.5-25 Mcg Ellipta INHALATION DAILYRT YEIMY Furosemide 20 mg 09/19/25 09:00 Furosemide 20 Mg Tablet BY MOUTH DAILY [facility] Remdesivir 100 mg in 250 mls @ 250 mls/hr 09/20/25 10:00 IVPB 09/23/25 10:59 Q24H YEIMY Ceftriaxone Sodium 1 gm/ 50 mls @ 100 mls/hr 09/20/25 00:00 Sodium Chloride IVPB Q24H YEIMY Doxycycline Hyclate 100 mg/ 100 mls @ 100 mls/hr 09/19/25 03:00 09/19/25 04:17 Sodium Chloride IVPB 09/23/25 15:59 100 mls/hr Q12H YEIMY Administration Metoprolol Succinate 25 mg 09/19/25 09:00 Metoprolol Succinate Ext Rel 25 Mg Tabcr PO QAM [facility] Rosuvastatin Calcium 5 mg 09/19/25 09:00 Rosuvastatin 5 Mg Tablet PO DAILY [facility] Radiology Results: ITS Impressions Chest X-Ray 09/18/25 17:38 Impression: 1: Stable bandlike opacities right mid and lower lung which may reflect atelectasis/scarring or atypical pneumonia. 2: Small pleural effusions. Labs Labs: Laboratory Results - last 24 hr 09/18/25 09/18/25 09/18/25 20:34 21:51 23:28 WBC 7.8 RBC 4.15 L Hgb 12.2 Hct 37.7 MCV 90.8 MCH 29.4 MCHC 32.4 RDW 14.6 H Plt Count 184 MPV 9.3 Immature Gran % (Auto) 0.5 Neut % (Auto) 70.7 Lymph % (Auto) 16.6 L [place]oard % (Auto) 10.2 H Eos % (Auto) 1.0 Baso % (Auto) 1.0 Lymph # (Auto) 1.29 [place]oard # (Auto) 0.8 H Eos # (Auto) 0.1 Baso # (Auto) 0.1 Abs Immat Gran (auto) 0.04 H Absolute Neuts (auto) 5.5 Absolute Nucleated RBC 0.000 Nucleated RBC % 0.0 PT 23.3 H INR 2.1 APTT 37.1 H Sodium 135 L Potassium 3.6 Chloride 101 Carbon Dioxide 26 Anion Gap 8 BUN 20 H Creatinine 1.16 H Estim Creat Clear Calc Not Reportable Estimated GFR 44 L Glucose 95 Calcium 9.3 Magnesium 1.9 Total Bilirubin 0.8 AST 24 ALT 14 Alkaline Phosphatase 86 Troponin I 0.020 0.016 NT-Pro-B Natriuret Pep 8010 H Total Protein 8.2 Albumin 4.3 Urine Color Yellow Urine Appearance Cloudy H Urine pH 5.0 Ur Specific [place] 1.023 Urine Protein 2+ H Urine Glucose (UA) Negative Urine Ketones Trace H Ur Blood (Man) 2+ H Urine Nitrate Negative Urine Bilirubin Negative Urine Urobilinogen 1.0 Add Ur Microanalysis Reviewed Leukocyte Esterase Rfl 1+ H Urine RBC 0-2 Urine WBC 21-50 H Ur Squamous Epith Cells Moderate Urine Bacteria 4+ H Urine Casts >20 Hyaline Casts Present Influenza A (RT-PCR) Negative Influenza B (RT-PCR) Negative RSV (RT-PCR) Negative SARS-CoV-2 RNA (RT-PCR) Positive A 09/19/25 05:19 WBC 8.2 RBC 3.76 L Hgb 11.0 L Hct 33.8 L MCV 89.9 MCH 29.3 MCHC 32.5 RDW 14.5 Plt Count 193 MPV 9.6 Immature Gran % (Auto) Neut % (Auto) Lymph % (Auto) [place] % (Auto) Eos % (Auto) Baso % (Auto) Lymph # (Auto) [place] # (Auto) Eos # (Auto) Baso # (Auto) Abs Immat Gran (auto) Absolute Neuts (auto) Absolute Nucleated RBC Nucleated RBC % PT INR APTT Sodium 134 L Potassium 3.5 Chloride 100 Carbon Dioxide 26 Anion Gap 8 BUN 28 H Creatinine 1.20 H Estim Creat Clear Calc 21 Estimated GFR 43 L Glucose 243 H Calcium 8.4 Magnesium Total Bilirubin AST ALT Alkaline Phosphatase Troponin I NT-Pro-B Natriuret Pep Total Protein Albumin Urine Color Urine Appearance Urine pH Ur Specific [place] Urine Protein Urine Glucose (UA) Urine Ketones Ur Blood (Man) Urine Nitrate Urine Bilirubin Urine Urobilinogen Add Ur Microanalysis Leukocyte Esterase Rfl Urine RBC Urine WBC Ur Squamous Epith Cells Urine Bacteria Urine Casts Hyaline Casts Influenza A (RT-PCR) Influenza B (RT-PCR) RSV (RT-PCR) SARS-CoV-2 RNA (RT-PCR)
[2025-09-19] MEDS: METOPROLOL SUCCINATE EXT REL 25 MG TABCR PO (08:33)
[2025-09-19] MEDS: APIXABAN 5 MG TABLET PO ×2 (08:33→20:47)
[2025-09-19] MEDS: FUROSEMIDE 20 MG TABLET BY MOUTH (08:34)
[2025-09-19] MEDS: ROSUVASTATIN 5 MG TABLET PO (08:34)
[2025-09-19 08:52] LABS: Procalcitonin 0.1 ng/mL
[2025-09-19] MEDS: INSULIN ASPART (*BKC) 100 UNITS/ML SUB-Q ×2 (08:53→12:23)
[2025-09-19] MEDS: FLUTICASONE/UMECLIDIN/VILANTER 100-62.5-25 MCG ELLIPTA 1 PUFF INHALATION (09:28)
[2025-09-19] MEDS: guaiFENesin 12 HR 600 MG TABCR PO (20:48)
[2025-09-20] VITALS: PULSE 74
[2025-09-20 04:00] VITALS: PULSE 54
[2025-09-20 04:21] VITALS: BP 100/46; PULSE 62; RESP 16; TEMP 37; O2SAT 96
[2025-09-20 05:24] LABS: Hematocrit 32.4 % (37.0-47.0); Hemoglobin 10.4 g/dL (12.0-15.0); Mean Corpuscular HGB Conc 32.1 g/dl (32-36); Mean Corpuscular Hemoglobin 29.4 pg (26-34); Mean Corpuscular Volume 91.5 fl (80-100); Platelet Count Result 192 k/mm3 (150-375); Red Blood Count 3.54 M/mm3 (4.2-5.4); White Blood Count 10.7 K/mm3 (4.5-10.0)
[2025-09-20 05:47] LABS: Alanine Aminotransferase 11 U/L (6-35); Albumin Level 3.4 g/dL (3.5-5.1); Alkaline Phosphatase 69 U/L (38-126); Anion Gap 5 mmol/L (4-12); Aspartate Amino Transferase 22 U/L (14-36); Bilirubin,Total 0.2 mg/dL (0.2-1.3); Blood Urea Nitrogen 35 mg/dL (7-17); Calcium 8.3 mg/dL (8.4-10.2); Carbon Dioxide 26 mmol/L (22-30); Chloride 103 mmol/L (98-107); Estimated CRCL calculation 21 ml/min; Estimated Glomerular Filt Rate 42; Glucose 104 mg/dL (65-110); Potassium 3.9 mmol/L (3.4-5.0); Sodium 134 mmol/L (137-145); Total Protein 6.5 g/dL (6.3-8.2)
[2025-09-20 08:00] VITALS: PULSE 59
[2025-09-20] MEDS: FLUTICASONE/UMECLIDIN/VILANTER 100-62.5-25 MCG ELLIPTA 1 PUFF INHALATION (09:05)
[2025-09-20 09:06] VITALS: O2SAT 100
[2025-09-20 10:05] VITALS: PULSE 63
[2025-09-20] MEDS: guaiFENesin 12 HR 600 MG TABCR PO (10:05)
[2025-09-20] MEDS: ROSUVASTATIN 5 MG TABLET PO (10:05)
[2025-09-20] MEDS: METOPROLOL SUCCINATE EXT REL 25 MG TABCR PO (10:05)
[2025-09-20] MEDS: APIXABAN 5 MG TABLET PO (10:05)
[2025-09-20] MEDS: FUROSEMIDE 20 MG TABLET BY MOUTH (10:07)
--- NOTE | 2025-09-20 11:09 | P.DS_ITS ---
DS: Admitting Diagnosis Discharge Date 09/20/25 Admitting Diagnosis - COVID-19 DS: Discharge Diagnosis Discharge Diagnosis (1) COVID-19: Code(s): U07.1 - COVID-19 Status: Acute (2) COPD (chronic obstructive pulmonary disease): Qualifiers: COPD type: unspecified COPD Qualified Code(s): J44.9 - Chronic obstructive pulmonary disease, unspecified Code(s): J44.9 - Chronic obstructive pulmonary disease, unspecified Status: Acute (3) CHF (congestive heart failure): Qualifiers: Heart failure chronicity: acute Heart failure type: unspecified Qualified Code(s): I50.9 - Heart failure, unspecified Code(s): I50.9 - Heart failure, unspecified Status: Acute (4) Dyslipidemia: Code(s): E78.5 - Hyperlipidemia, unspecified Status: Acute (5) Primary hypertension: Code(s): I10 - Essential (primary) hypertension Status: Acute (6) Pulmonary embolism on long-term anticoagulation therapy: Code(s): I26.99 - Other pulmonary embolism without acute cor pulmonale; 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 CXR showed stable opacities likely related to history of lung cancer and bilateral small pleural effusions. Throughout the hospitalization, she remained hemodynamically stable and was maintained on room air without documented hypoxia. She received remdesivir early in the course, and steroids and antibiotics were discontinued as there was no evidence of ongoing hypoxia, wheezing, leukocytosis, or bacterial infection. Respiratory symptoms steadily improved, and she remained clinically stable with supportive care and continuation of home inhalers. An abnormal urinalysis was noted on admission; however, the patient remained asymptomatic from a urinary standpoint, and antibiotics were discontinued. Urine culture results will be followed after discharge. Volume status improved following diuresis, and she was continued on furosemide 20 mg daily with stable renal function. She ambulated independently on the day of discharge without dyspnea or oxygen requirement. The plan of care and discharge instructions were discussed with her son. The patient was discharged home in stable condition with family support, instructed to continue current medications, and to follow up with her mix technician as scheduled next month for a repeat echocardiogram. Status at Discharge Overall status at discharge: patient is progressing back to baseline Time Spent with Patient Time attestation: Total time spent providing and/or coordinating discharge services: Time spent: Greater than 30 minutes Exam Narrative: General: NAD, frail Eyes: EOMI ENT: neck supple Cardiovascular: Regular rate and rhythm Respiratory: Clear to auscultation, respirations even and unlabored on RA Gastrointestinal: Soft, non tender Genitourinary: no suprapubic tenderness Musculoskeletal: No edema Skin: warm, dry Neuro: Alert and oriented x2-3 (baseline). Psych: Mood appropriate DS: Data Data Completed and Pending Completed studies during hospitalization: ITS Impressions Chest X-Ray 09/18/25 17:38 Impression: 1: Stable bandlike opacities right mid and lower lung which may reflect atelectasis/scarring or atypical pneumonia. 2: Small pleural effusions. Labs on day of discharge: Labs from last 24 hours 09/20/25 09/20/25 09/19/25 07:46 05:06 20:47 WBC 10.7 H RBC 3.54 L Hgb 10.4 L Hct 32.4 L MCV 91.5 MCH 29.4 MCHC 32.1 RDW 14.4 Plt Count 192 MPV 9.5 Sodium 134 L Potassium 3.9 Chloride 103 Carbon Dioxide 26 Anion Gap 5 BUN 35 H Creatinine 1.21 H Estim Creat Clear Calc 21 Estimated GFR 42 L Glucose 104 POC Capillary Glucose 104 170 H Calcium 8.3 L Total Bilirubin 0.2 AST 22 ALT 11 Alkaline Phosphatase 69 Total Protein 6.5 Albumin 3.4 L 09/19/25 09/19/25 16:13 11:35 WBC RBC Hgb Hct MCV MCH MCHC RDW Plt Count MPV Sodium Potassium Chloride Carbon Dioxide Anion Gap BUN Creatinine Estim Creat Clear Calc Estimated GFR Glucose POC Capillary Glucose 187 H 238 H Calcium Total Bilirubin AST ALT Alkaline Phosphatase Total Protein Albumin Discharge Plan Discharge Attending physician on discharge: Sariah Mora Consulting providers: Cyndy Foster Discharging Clinician: Cyndy Foster Anticipated Discharge Date/Time: 09/20/25 11:05 Patient Disposition: Home Activity: as tolerated Diet: regular Discharge Instructions: Your Diagnosis:?You were admitted to the hospital with COVID-19 (coronavirus infection). Your chest X-ray showed small fluid collections around your lungs (pleural effusions), but your oxygen levels remained normal throughout your stay. You are now stable and ready to go home. Isolation at Home You should isolate at home for?at least 10 days?from when your symptoms first started.?You can end isolation when: * At least 10 days have passed since your symptoms began * You have been fever-free for at least 24 hours without using fever-reducing medications (like Tylenol or ibuprofen) * Your symptoms (such as cough or shortness of breath) are improving After ending isolation, continue to wear a well-fitting mask around others for an additional 5 days. Managing Your Symptoms at Home * Rest?and drink plenty of fluids * For fever, body aches, or headache:?Take acetaminophen (Tylenol) as directed on the package * For cough:?[id number] cough suppressants may help. Use a humidifier if available * Continue to monitor your symptoms. Most people recover at home with supportive care Your Medications * Continue taking your furosemide (Lasix)?exactly as you were taking it before your hospitalization * Take all other home medications as prescribed Important Follow-Up * Cardiology appointment:?You need a repeat echocardiogram (heart ultrasound). This will be scheduled at your follow-up cardiology appointment. Please call your mix technician's office within 1 week to schedule this appointment. * Urine culture results:?We will call you with the results of your urine culture. If the results show an infection, we will let you know if you need antibiotics. When to Seek Emergency Care Call 911 or go to the emergency department immediately if you develop any of these warning signs: * Trouble breathing?or shortness of breath that is getting worse * Persistent chest pain or pressure * New confusion?or difficulty waking up * Bluish lips or face * Inability to stay awake When to Call Your Doctor Contact your primary care doctor if you experience: * Fever that returns or does not improve * Worsening cough or shortness of breath * Urinary symptoms?such as burning with urination, frequent urination, or blood in your urine * Symptoms that improve but then worsen again * Any other concerning symptoms General Precautions * Self-monitor your symptoms daily * If you have a pulse oximeter at home, you may check your oxygen levels. Normal is 90% or above * Avoid contact with others, especially those at high risk for severe COVID-19 * Wash your hands frequently * Clean and disinfect frequently touched surfaces Questions? If you have any questions or concerns about your recovery, please contact your primary care doctor. Patient Instructions: Antibiotic Form, Apixaban (By mouth) Patient Language: Barbadian Stand Alone Forms: General Discharge Information Follow-up/Referrals: Adarsh Coreas MD [Physician, Cardiology] Referral Note: follow-up as scheduled, repeat echocardiogram Heath Sanchez MD [Primary Care Provider, Family Practice] Referral Note: follow-up as scheduled Discharge Medications: New guaifenesin [Mucus Relief ER] 600 mg Tablet Extended Release 12hr 600 mg PO Q12HR Qty: 14 0RF Continued rosuvastatin 5 mg tablet 5 mg PO DAILY Qty: 90 1RF Breztri Aerosphere 160-9-4.8 mcg/actuation HFA aerosol inhaler 2 inh inhalation QAM AND QPM 90 Days Qty: 32.1 3RF Rx Instructions: rinse and spit metoprolol succinate 25 mg tablet extended release 24 hr 25 mg PO QAM Qty: 90 2RF Eliquis 5 mg tablet 5 mg PO Q12HR Qty: 60 5RF albuterol sulfate 90 mcg/actuation HFA aerosol inhaler See Rx Instructions .ROUTE .COMPLEX Qty: 25.5 6RF Dose Instruction: INHALE 2 PUFFS EVERY 4 HOURS NEEDED FOR WHEEZE OR FOR SHORTNESS OF BREATH Rx Instructions: INHALE 2 PUFFS EVERY 4 HOURS NEEDED FOR WHEEZE OR FOR SHORTNESS OF BREATH furosemide 20 mg tablet See Rx Instructions .ROUTE .COMPLEX Qty: 90 0RF Dose Instruction: TAKE 1 TABLET BY MOUTH EVERY DAY IN THE MORNING Rx Instructions: TAKE 1 TABLET BY MOUTH EVERY DAY IN THE MORNING Date of admission: 09/19/25 11:29 Primary Care Provider: Heath Sanchez Admitting Provider: Thalia Norman Attending physician on admission: Thalia Norman Condition: Stable
== END 2025-09-20 13:00 | disposition home or self-care (01) | DRG 177 ==
LOC: ANHED 23:37 → ANH3MEDSUR 09-19 00:22 → ANH2MED 09-19 00:51
PROVIDERS: Nurse Practitioner; Registered Nurse; Admitting Provider Internal Medicine; Emergency Provider Physician Assistant; PCP Family Medicine Adolescent Medicine; Visit Provider Physician Assistant
DX: U07.1 COVID-19 (principal); I50.33 Acute on chronic diastolic (congestive) heart failure; J44.0 Chronic obstructive pulmonary disease with (acute) lower respiratory infection; I25.10 Atherosclerotic heart disease of native coronary artery without angina pectoris; R82.90 Unspecified abnormal findings in urine; R91.1 Solitary pulmonary nodule; K21.9 Gastro-esophageal reflux disease without esophagitis; Z95.5 Presence of coronary angioplasty implant and graft; Z87.891 Personal history of nicotine dependence; Z86.711 Personal history of pulmonary embolism; Z79.01 Long term (current) use of anticoagulants; Z85.118 Personal history of other malignant neoplasm of bronchus and lung; Z86.718 Personal history of other venous thrombosis and embolism; Z87.19 Personal history of other diseases of the digestive system
CPT/HCPCS: 36415; 71046; 80048; 80053; 81001; 82948; 83735; 83880; 84145; 84484; 85025; 85027; 85610; 85730; 87040; 87086; 87186; 87637; 93005; 94640; 94667; 96365; 96366; 96375; 99285; A9270; G0378; J0248; J0696; J1100; J1815; J1938; J2919; J3475